=== PATIENT | female | born 1975 | race Caucasian/White ===

== ENCOUNTER 2017-03-21 16:55 | Emergency (ER) | payer OTHER ==
[2017-03-21 16:55] VITALS: BMI 25.6
--- NOTE | 2017-03-21 17:14 | C.PDOC ---
History Of Present Illness 41 y/o female with PMHx of NIDDM, HTN, Hyperlipidemia, hx of Charcot foot BIBA for evaluation of open wound noted on left big toe that patient contributes to long cast she wear for months after had procedure on left foot on 02/17/17 at [facility]. Pt admits, ambulate w/assistance of crutches. Otherwise, denies fever, chills, left leg pain swelling or wound drainage. At the time of evaluation, pt appears comfortable, not in any apparent distress. Time Seen by Provider: 03/21/17 17:00 Chief Complaint (Nursing): Lower Extremity Problem/Injury History Per: Patient History/Exam Limitations: no limitations Onset/Duration Of Symptoms: Days Past Medical History Reviewed: Historical Data, Nursing Documentation, Vital Signs Vital Signs: Last Vital Signs Temp 97.6 F 03/21/17 16:57 Pulse 84 03/21/17 16:57 Resp 20 03/21/17 16:57 BP 113/74 03/21/17 16:57 Pulse Ox 100 03/21/17 18:50 - Medical History PMH: Diabetes, HTN, Hypercholesterolemia - [facility] Procedures IMMOBILIZATION OF LEFT FOOT USING CAST (02/12/17) INTRODUCTION OF SERUM/TOX/VACCINE INTO MUSCLE, PERC APPROACH (02/12/17) Family History: States: No Known Family Hx - Social History Hx Alcohol Use: No Hx Substance Use: No Review Of Systems Except As Marked, All Systems Reviewed And Found Negative. Constitutional: Negative for: Fever, Chills Musculoskeletal: Positive for: Other ((+) Left big toe open wound). Negative for: Leg Pain Physical Exam - Physical Exam Appears: Well, Non-toxic, No Acute Distress Skin: Normal Color, Warm Head: Normacephalic Eye(s): bilateral: PERRL Extremity: Normal ROM (RLE, no neurovascular deficits), Capillary Refill (less than 2sec to left foot), No Deformity, Other (Left leg long cast small open wound noted dorsal aspect 1st proximal phalanx 2 cm diameter, appears clean, dry , intact. No erythema.) Neurological/Psych: Oriented x3, Normal Speech, Normal Motor, Normal Sensation, Normal Reflexes ED Course And Treatment O2 Sat by Pulse Oximetry: 100 (RA) Pulse Ox Interpretation: Normal Progress Note: Podiatry resident was called, evaluated patient in ED. Old Case was removed and replaced by fibergalss posterior leg splint by podiatry resident. As per , pt is stable for discharge now and outpt f/u with Podiatry Clinic as scheduled on 03/26/17. During the ED evaluation, accucheck performed, pt was found hypoglycemic. After PO challenge given, FSBS re-check 96. Pt appears afebrile, hemodynamicaly stable. Non-toxic. PulsEOx 100% RA. ENT: no acute findings. Lungs: CTA B/L, BS equal B/L. ABd: benign, (-) guarding, (-) rebound. LLE: posterior cast applied, wound over left big toe cleaned, covered by xeroform, no evidencce of cellulitis, no neurovascular deficits. Pt advised to F/U with Podiatry as scheduled and PMD for further eval of DM. Pt understand, stable for discharge and outpt f/u now. Disposition Counseled Patient/Family Regarding: Diagnosis, Need For Followup - Disposition Referrals: Podiatry Clinic [Outside] Disposition: HOME/ ROUTINE Disposition Time: 18:46 Condition: STABLE Additional Instructions: FOLLOW UP WITH [facility]ER[employer] DESIGN ENGINEER SCHEDULED ON 03/26/17 FOR RE-EVALUATION. RETURN TO ED IF ANY WORSENING OR NEW CHANGES. Instructions: Cast Care (ED), Non-diabetic Hypoglycemia (ED), Chronic Wound Care (ED) Forms: [employer] (Guinean) - Clinical Impression Clinical Impression: Encounter for replacement of cast, Encounter for evaluation of wound, Hypoglycemia - PA / ELECTROMATIC TYPIST / Resident Statement MD/DO has reviewed & agrees with the documentation as recorded. - Scribe Statement The provider has reviewed the documentation as recorded by the Scribe Juliette Curran All medical record entries made by the Jocelynibbradley were at my direction and personally dictated by me. I have reviewed the chart and agree that the record accurately reflects my personal performance of the history, physical exam, medical decision making, and the department course for this patient. I have also personally directed, reviewed, and agree with the discharge instructions and disposition.
[2017-03-21] MEDS ORDERED: Bacitracin Ointment 30 GM TUBE TOP STA (17:16)
[2017-03-21] MEDS ORDERED: Bacitracin 500 Units/gm Oint Foilpak UD ONE ×2 (17:18→17:19)
--- NOTE | 2017-03-21 18:46 | CP.PCM.CON ---
History of Present Illness - History of Present Illness History of Present Illness: 41 y/o female with PMHx of DM, HTN, Hyperlipidemia, left Charcot deformity consulted in the ED fast track for left foot ulceration. Patient reports that today when she took of her socks, she noticed the ulceration on the left foot. Her sister told her to go to the ED right away. She reports no pain, rating the pain 0/10 on VAS score. She denies calf pain. She did not notice any odor or drainage from the socks. She states that she has been keeping the cast dry and clean. She reports the cast was placed on last week at [facility] podiatry clinic. She states that she will f/u in clinic on Wednesday for her Charcot deformity and cast change. Patient denies of any recent F/N/V/C/SOB/CP today. Patient denies of any other pedal complains at this time. PMHx: DM, HTN, Hyperlipidemia, Charcot PSHx: denies Allergies: N.K.D.A SHx: Denies of any smoking, EtOH, or illicit drug use FH: noncontributory Past Patient History - Tetanus Immunizations Tetanus Immunization: Unknown - Past Medical History & Family History Past Medical History?: Yes - Past Social History Smoking Status: Never Smoked - CARDIAC Hx Hypercholesterolemia: Yes Hx Hypertension: Yes - PULMONARY Hx Respiratory Disorders: No - NEUROLOGICAL Hx Neurological Disorder: No - HEENT Hx HEENT Problems: No - RENAL Hx Chronic Kidney Disease: No - ENDOCRINE/METABOLIC Hx Endocrine Disorders: Yes Hx Diabetes Mellitus Type 2: Yes - HEMATOLOGICAL/ONCOLOGICAL Hx Blood Disorders: No - INTEGUMENTARY Hx Dermatological Problems: No - MUSCULOSKELETAL/RHEUMATOLOGICAL Hx Musculoskeletal Disorders: No Hx Falls: No - GASTROINTESTINAL Hx Gastrointestinal Disorders: No - GENITOURINARY/GYNECOLOGICAL Hx Genitourinary Disorders: No - PSYCHIATRIC Hx Substance Use: No - SURGICAL HISTORY Hx Surgeries: Yes Other/Comment: Boil surgically removed on upper left back as per patient statement 10 years ago - ANESTHESIA Hx Anesthesia: Yes Hx Anesthesia Reactions: No Meds Allergies/Adverse Reactions: Allergies Allergy/AdvReac Type Severity Reaction Status Date / Time No Known Allergies Allergy Verified 03/21/17 17:00 Physical Exam - Constitutional Appears: Well, Non-toxic, No Acute Distress - Extremities Exam Additional comments: Left Lower extremity exam: VASC: DP/PT pulses are palpable 2/4, Cap refill time: < 3 sec to all digits, Temp gradient: warm to cool from proximal to distal, no edema noted to the L LE DERM: ulceration noted to the dorsum of the 1st MPJ measuring approximately 2.5 cm x 2 cm x . 2cm, wound base is mainly fibrotic with granular tissue noted in the peripheral. Periwound is erythematus with no streaking noted, no purulence, no active drainage, no tunneling, no undermining, no probe to bone, no clinical suspicion of active infection NEURO: Protective sensation grossly diminished ORTHO: plantar medial arch is collapsed, very minimal ankle DF, PF, and inversion on active ROM, clicking appreciated on ROM of the midtarsal longitudinal axis, as well as during ankle dorsiflexion, MMT: 2/5 on dorsiflexion, plantarflexion, inversion 4/5 on eversion, mild tenderness during ROM at the ankle joint as well as the midtarsal joint, no pain on palpation of the medial ankle or midfoot, no calf pain - Neurological Exam Neurological exam: Alert, Oriented x3 - Psychiatric Exam Psychiatric exam: Normal Affect, Normal Mood Results - Vital Signs Recent Vital Signs: Last Vital Signs Temp 97.6 F 03/21/17 16:57 Pulse 84 03/21/17 16:57 Resp 20 03/21/17 16:57 BP 113/74 03/21/17 16:57 Pulse Ox 100 03/21/17 17:17 - Labs Labs: Laboratory Results - last 24 hr 03/21/17 17:41 POC Glucose (mg/dL) 53 L Assessment & Plan - Assessment and Plan (Free Text) Assessment: 41 y/o female with PMHx of DM, HTN, Hyperlipidemia, left Charcot deformity for left dorsum 1st MPJ ulceration secondary to pressure from cast- no clinical signs of infection Plan: Patient examined and evaluated Discussed the plan in detail with attending Dr. Indira Brewer and chart reviewed Cast removed in the ED, ulceration cleansed with saline, dressed with xeroform, dsd, and kerlix. Posterior splint applied for the Left Charcot deformity. Will f/u in clinic on Wednesday of Charcot deformity and ulceration Patient will continue to be NWB in crutches. Educated on signs of infection. Advised to go to ED if present. Thank you for the consult.
[2017-03-21 19:18] VITALS: BP 114/68; PULSE 75; RESP 18; TEMP 98.2
[2017-03-21 19:19] VITALS: O2SAT 100
== END 2017-03-21 19:19 | disposition home or self-care (01) ==
LOC: C.ER 16:55
DX: E11.621 Type 2 diabetes mellitus with foot ulcer (principal); L97.529 Non-pressure chronic ulcer of other part of left foot with unspecified severity; E11.649 Type 2 diabetes mellitus with hypoglycemia without coma

== ENCOUNTER 2017-04-30 18:51 | Inpatient (IN) | payer OTHER ==
[2017-04-30] MEDS ORDERED: Phenylephrine 10 mg/ml Inj ONE (19:09)
[2017-04-30] MEDS ORDERED: Midazolam 2 MG/2 ML VIAL ONE (19:10)
[2017-04-30] MEDS ORDERED: Eptifibatide 0.75 mg/ml 150 MG/200 ML BOTTLE IV ONE (19:11)
[2017-04-30] MEDS ORDERED: Iodixanol 320 MG/ML 200 ML BOTTLE IV ONE (19:11)
[2017-04-30] MEDS ORDERED: Eptifibatide 20 mg/10mL Inj IVP ONE ×2 (19:11→21:14)
[2017-04-30] MEDS ORDERED: Metoprolol 1 mg/ml Inj IVP ONE (21:10)
[2017-04-30] MEDS ORDERED: Norepinephrine 8 MG in Dextrose 5% In Water 500 ML IV PRN (22:31)
[2017-04-30 22:54] LABS: BASO % 0.2 % (0.0-2.0); HEMATOCRIT 40.6 % (34.0-47.0); LYMPH # 1.2 K/uL (1.0-4.3); LYMPH % 4.4 % (20.0-40.0); MEAN CELL VOLUME 87.9 fL (81.0-99.0); MEAN CORPUSCULAR HEMOGLOBIN 28.4 pg (27.0-31.0); MEAN CORPUSCULAR HGB CONC 32.3 g/dL (33.0-37.0); MEAN PLATELET VOLUME 8.8 fL (7.2-11.7); MONO # 1.8 K/uL (0.0-0.8); MONO % 6.3 % (0.0-10.0); PLATELET COUNT 177 K/uL (130-400); WHITE BLOOD COUNT 28.6 K/uL (4.8-10.8)
[2017-04-30] MEDS ORDERED: Sodium Chloride 0.9% 1,000 ML IV SCH (23:00)
[2017-04-30 23:10] LABS: RBC URINE 12 /hpf (0-3); URINE BACTERIA RARE (<OCC); URINE BILIRUBIN NEGATIVE (NEGATIVE); URINE BLOOD 2+ (NEGATIVE); URINE COLOR Straw (YELLOW); URINE GLUCOSE (UA) 3+ mg/dL (Normal); URINE KETONE NEGATIVE (NEGATIVE); URINE LEUKOCYTE ESTERASE NEG Leu/uL (Negative); URINE PROTEIN 2+ mg/dL (NEGATIVE); URINE UROBILINOGEN NORMAL mg/dL (0.2-1.0); WBC URINE 1 /hpf (0-5)
[2017-04-30 23:20] LABS: INR 1.2
[2017-04-30 23:22] LABS: ALB/GLOB RATIO 1.1 (1.0-2.1); BILIRUBIN,TOTAL 1.6 mg/dL (0.2-1.3); CALCIUM 6.2 mg/dl (8.6-10.4); MAGNESIUM 1.4 mg/dL (1.6-2.3); PHOSPHOROUS 4.8 mg/dL (2.5-4.5); POTASSIUM 5.3 mmol/L (3.6-5.2); TOTAL PROTEIN 4.9 g/dL (6.3-8.3)
[2017-04-30 23:54] LABS: METAMYELOCYTE 1 % (0-0); MYELOCYTE 2 % (0-0); NEUTROPHIL 86 % (50-75); TOTAL CELLS COUNTED 100
[2017-05-01] MEDS: Midazolam 2 MG/2 ML VIAL IVP PRN ×4 (00:45→14:45)
[2017-05-01 00:54] LABS: ALB/GLOB RATIO 0.8 (1.0-2.1); BILIRUBIN,TOTAL 1.9 mg/dL (0.2-1.3); CALCIUM 6.7 mg/dl (8.6-10.4); POTASSIUM 5.5 mmol/L (3.6-5.2); TOTAL PROTEIN 6.2 g/dL (6.3-8.3)
--- NOTE | 2017-05-01 01:05 | CP.PCM.HP ---
<Veronica Cline - Last Filed: 05/01/17 01:03> History of Present Illness - History of Present Illness History of Present Illness: HPI: Patient is a 41 year old female with a past medical history of HTN, hyperlipdemia, and DM, who is transferred from [place] to [facility] as code heart for cardiac catheterization. Patient was s/p left charcot joint reconstruction on 04/30/17. In the OR, the patient's tourniquet on lower extremmity was removed, then patient became hypotensive and had blood loss of approximately 750cc. Code blue was called at approximately 15:50. One shock was given, 3L of NS were given, 4 units of PRBC were given (hgb 5.3). ROSC was achieved approximately 30 minutes later. EKG showed acute STEMI. Patient was transferred to [facility] for cardiac catheterization with Dr. Morales. Patient has balloon pump in place and transferred to the ICU. Patient is alert and follows commands; Patient intubated and therefore unable to obtain ROS. *History and PMHx obtained from EMR. PMD: [facility] PMHx: HTN, HLD, DM, Charcot joint of left LE Surg Hx: reconstruction of left charcot joint; otherwise, unknown FamHx: unknown SocHx: unknown Allergies: NKDA (as per EMR) Medications: See EMR Present on Admission - Present on Admission Any Indicators Present on Admission: No Review of Systems - Review of Systems Systems not reviewed;Unavailable: Intubated Past Patient History - Tetanus Immunizations Tetanus Immunization: Unknown - Past Medical History & Family History Past Medical History?: Yes - Past Social History Smoking Status: Never Smoked Drugs: Other (unknown) Home Situation {Lives}: With Family - CARDIAC Hx Cardiac Disorders: Yes Hx Hypercholesterolemia: Yes Hx Hypertension: Yes - PULMONARY Hx Respiratory Disorders: No - NEUROLOGICAL Hx Neurological Disorder: No - HEENT Hx HEENT Problems: No - RENAL Other/Comment: RECENT KIDNE INFECTION - ENDOCRINE/METABOLIC Hx Endocrine Disorders: Yes Hx Diabetes Mellitus Type 2: Yes - HEMATOLOGICAL/ONCOLOGICAL Hx Blood Disorders: No - INTEGUMENTARY Hx Dermatological Problems: No - MUSCULOSKELETAL/RHEUMATOLOGICAL Hx Musculoskeletal Disorders: No Hx Falls: No Other/Comment: charcot deformity - GASTROINTESTINAL Hx Gastrointestinal Disorders: No - GENITOURINARY/GYNECOLOGICAL Hx Genitourinary Disorders: No Hx Urinary Tract Infection: Yes - PSYCHIATRIC Hx Psychophysiologic Disorder: No Hx Substance Use: No - SURGICAL HISTORY Hx Surgeries: Yes Hx Cardiac Catheterization: Yes Hx Coronary Stent: Yes Other/Comment: Left foot surgery 02/17/17 - ANESTHESIA Hx Anesthesia: Yes Hx Anesthesia Reactions: No Hx Malignant Hyperthermia: No Meds Allergies/Adverse Reactions: Allergies Allergy/AdvReac Type Severity Reaction Status Date / Time No Known Allergies Allergy Verified 03/21/17 17:00 Physical Exam - Head Exam Head Exam: ATRAUMATIC, NORMAL INSPECTION - Eye Exam Eye Exam: EOMI, Normal appearance. absent: Scleral icterus Pupil Exam: Mydriatic - ENT Exam ENT Exam: Mucous Membranes Dry - Respiratory Exam Respiratory Exam: absent: Rales, Rhonchi, Wheezes Additional comments: Intubated - Cardiovascular Exam Cardiovascular Exam: Tachycardia, +S1, +S2 Additional comments: s/p cardiac cath; Balloon pump present - GI/Abdominal Exam GI & Abdominal Exam: Normal Bowel Sounds, Soft. absent: Distended, Firm, Tenderness - Extremities Exam Additional comments: s/p left charcot joint reconstructive surgery (on 04/30) - Neurological Exam Neurological exam: Alert Additional comments: follows commands - Psychiatric Exam Additional comments: sedated - Skin Skin Exam: Dry, Intact, Warm Additional comments: s/p left charcot joint reconstructive surgery; dressing-clean, dry, intact Results - Vital Signs Recent Vital Signs: Last Vital Signs Temp Pulse 104 H 04/30/17 22:45 Resp 18 04/30/17 22:45 BP 89/56 L 04/30/17 22:45 Pulse Ox 100 04/30/17 22:45 - Labs Result Diagrams: 04/30/17 22:43 05/01/17 00:26 Labs: Laboratory Results - last 24 hr 04/30/17 04/30/17 04/30/17 22:30 22:43 22:43 WBC 28.6 H RBC 4.62 Hgb 13.1 Hct 40.6 MCV 87.9 MCH 28.4 MCHC 32.3 L RDW 15.0 H Plt Count 177 MPV 8.8 Neut % (Auto) 89.1 H Lymph % (Auto) 4.4 L Lamb % (Auto) 6.3 Eos % (Auto) 0.0 Baso % (Auto) 0.2 Neut # 25.5 H Lymph # 1.2 Lamb # 1.8 H Eos # 0.0 Baso # 0.0 Neutrophils % (Manual) 86 H Band Neutrophils % 5 H Lymphocytes % (Manual) 2 L Monocytes % (Manual) 4 Metamyelocytes % 1 H Myelocytes % 2 H Platelet Estimate Normal PT INR APTT Sodium 138 Potassium 5.3 H Chloride 113 H Carbon Dioxide 11 L* Anion Gap 18 BUN 26 H Creatinine 1.7 H Est GFR ( Amer) 40 Est GFR (Non-Af Amer) 33 POC Glucose (mg/dL) Random Glucose 440 H* Lactic Acid Calcium 6.2 L Phosphorus 4.8 H Magnesium 1.4 L Total Bilirubin 1.6 H AST 1215 H ALT 896 H Alkaline Phosphatase 57 Total Creatine Kinase 2498 H CK-MB (Mass) 103 H Troponin I 144.0000 H* Total Protein 4.9 L Albumin 2.5 L Globulin 2.4 Albumin/Globulin Ratio 1.1 Urine Color Urine Clarity Urine pH Ur Specific [place] Urine Protein Urine Glucose (UA) Urine Ketones Urine Blood Urine Nitrate Urine Bilirubin Urine Urobilinogen Ur Leukocyte Esterase Urine WBC (Auto) Urine RBC (Auto) Urine Bacteria Urine HCG, Qual Blood Type AB POSITIVE Antibody Screen Negative 04/30/17 04/30/17 04/30/17 22:43 23:16 23:46 WBC RBC Hgb Hct MCV MCH MCHC RDW Plt Count MPV Neut % (Auto) Lymph % (Auto) Lamb % (Auto) Eos % (Auto) Baso % (Auto) Neut # Lymph # Lamb # Eos # Baso # Neutrophils % (Manual) Band Neutrophils % Lymphocytes % (Manual) Monocytes % (Manual) Metamyelocytes % Myelocytes % Platelet Estimate PT 13.5 H INR 1.2 APTT 262 H* Sodium Potassium Chloride Carbon Dioxide Anion Gap BUN Creatinine Est GFR ( Amer) Est GFR (Non-Af Amer) POC Glucose (mg/dL) 391 H Random Glucose Lactic Acid Calcium Phosphorus Magnesium Total Bilirubin AST ALT Alkaline Phosphatase Total Creatine Kinase CK-MB (Mass) Troponin I Total Protein Albumin Globulin Albumin/Globulin Ratio Urine Color Straw Urine Clarity Clear Urine pH 6.0 Ur Specific [place] 1.012 Urine Protein 2+ H Urine Glucose (UA) 3+ H Urine Ketones Negative Urine Blood 2+ H Urine Nitrate Negative Urine Bilirubin Negative Urine Urobilinogen Normal Ur Leukocyte Esterase Neg Urine WBC (Auto) 1 Urine RBC (Auto) 12 H Urine Bacteria Rare Urine HCG, Qual Negative Blood Type Antibody Screen 05/01/17 05/01/17 05/01/17 00:26 00:26 00:26 WBC RBC Hgb Hct MCV MCH MCHC RDW Plt Count MPV Neut % (Auto) Lymph % (Auto) Lamb % (Auto) Eos % (Auto) Baso % (Auto) Neut # Lymph # Lamb # Eos # Baso # Neutrophils % (Manual) Band Neutrophils % Lymphocytes % (Manual) Monocytes % (Manual) Metamyelocytes % Myelocytes % Platelet Estimate PT INR APTT 71 H D Sodium 138 Potassium 5.5 H Chloride 115 H Carbon Dioxide 14 L Anion Gap 15 BUN 26 H Creatinine 1.7 H Est GFR ( Amer) 40 Est GFR (Non-Af Amer) 33 POC Glucose (mg/dL) Random Glucose 454 H* Lactic Acid 4.7 H* Calcium 6.7 L Phosphorus Magnesium Total Bilirubin 1.9 H AST ALT 904 H Alkaline Phosphatase 63 Total Creatine Kinase CK-MB (Mass) Troponin I Total Protein 6.2 L Albumin 2.8 L Globulin 3.4 Albumin/Globulin Ratio 0.8 L Urine Color Urine Clarity Urine pH Ur Specific [place] Urine Protein Urine Glucose (UA) Urine Ketones Urine Blood Urine Nitrate Urine Bilirubin Urine Urobilinogen Ur Leukocyte Esterase Urine WBC (Auto) Urine RBC (Auto) Urine Bacteria Urine HCG, Qual Blood Type Antibody Screen Assessment & Plan (1) Acute ST elevation myocardial infarction (STEMI) Assessment and Plan: s/p Code Blue, s/p Code Heart; transferred from [place]; s/p cardiac cath and balloon pump with Dr. Morales * EKG: acute stemi; sinus tachycardiac; rbbb; pending official read * Troponin: 144; f/u troponin x2 * Total CK: 2498, CKMB 103 * Echo: f/u report * CXR: f/u report * A1c: f/u results * Follow up morning labs * Continue ASA 325mg, Plavix 75mg, Crestor 20mg * Continue management as per ICU team Status: Acute (2) DM2 (diabetes mellitus, type 2) Assessment and Plan: Patient has history of DM. As per EMR, patient received 10units of insulin s/p code blue for glucose of 512. Will consider starting insulin after reviewing morning labs. Continue to monitor blood glucose, accuchecks. Status: Acute (3) HTN (hypertension) Assessment and Plan: Patient has a history of HTN. Patient currently hypotensive, on pressors; Hold antihypertensive medications. * Levophed 8mg * Continue management as per ICU team. Status: Acute (4) Renal insufficiency Assessment and Plan: Continue to monitor renal function. BUN 26, Cr 1.7, GFR 40 Status: Acute (5) Charcot's joint of foot Assessment and Plan: s/p left charcot joint reconstruction surgery on 04/30/17 Status: Acute (6) HLD (hyperlipidemia) Assessment and Plan: Continue Crestor 20mg PO HS Lipid panel 03/19/17: * TG 190 * Cholesterol 284 * LDL 175 * HDL 48 Status: Acute (7) Prophylactic measure Assessment and Plan: Heparin 5000 sc Q12 Protonix 40mg Accuchecks Status: Acute <Kory Savage - Last Filed: 05/01/17 06:26> Results - Vital Signs Recent Vital Signs: Last Vital Signs Temp 99.4 F 05/01/17 04:00 Pulse 105 H 05/01/17 06:02 Resp 17 05/01/17 06:02 BP 148/85 05/01/17 06:02 Pulse Ox 100 05/01/17 06:02 - Labs Result Diagrams: 04/30/17 22:43 05/01/17 00:26 Labs: Laboratory Results - last 24 hr 04/30/17 04/30/17 04/30/17 22:30 22:43 22:43 WBC 28.6 H RBC 4.62 Hgb 13.1 Hct 40.6 MCV 87.9 MCH 28.4 MCHC 32.3 L RDW 15.0 H Plt Count 177 MPV 8.8 Neut % (Auto) 89.1 H Lymph % (Auto) 4.4 L Lamb % (Auto) 6.3 Eos % (Auto) 0.0 Baso % (Auto) 0.2 Neut # 25.5 H Lymph # 1.2 Lamb # 1.8 H Eos # 0.0 Baso # 0.0 Neutrophils % (Manual) 86 H Band Neutrophils % 5 H Lymphocytes % (Manual) 2 L Monocytes % (Manual) 4 Metamyelocytes % 1 H Myelocytes % 2 H Platelet Estimate Normal PT INR APTT Puncture Site pCO2 pO2 HCO3 ABG pH ABG Total CO2 ABG O2 Saturation ABG Base Excess ABG Hemoglobin ABG Carboxyhemoglobin POC ABG HHb (Measured) ABG Methemoglobin Hernandez Test A-a O2 Difference Respiratory Index Hgb O2 Saturation Vent Mode Mechanical Rate FiO2 Tidal Volume PEEP Sodium 138 Potassium 5.3 H Chloride 113 H Carbon Dioxide 11 L* Anion Gap 18 BUN 26 H Creatinine 1.7 H Est GFR ( Amer) 40 Est GFR (Non-Af Amer) 33 POC Glucose (mg/dL) Random Glucose 440 H* Lactic Acid Calcium 6.2 L Phosphorus 4.8 H Magnesium 1.4 L Total Bilirubin 1.6 H AST 1215 H ALT 896 H Alkaline Phosphatase 57 Total Creatine Kinase 2498 H CK-MB (Mass) 103 H Troponin I 144.0000 H* Total Protein 4.9 L Albumin 2.5 L Globulin 2.4 Albumin/Globulin Ratio 1.1 Urine Color Urine Clarity Urine pH Ur Specific [place] Urine Protein Urine Glucose (UA) Urine Ketones Urine Blood Urine Nitrate Urine Bilirubin Urine Urobilinogen Ur Leukocyte Esterase Urine WBC (Auto) Urine RBC (Auto) Urine Bacteria Urine HCG, Qual Blood Type AB POSITIVE Antibody Screen Negative 04/30/17 04/30/17 04/30/17 22:43 23:16 23:46 WBC RBC Hgb Hct MCV MCH MCHC RDW Plt Count MPV Neut % (Auto) Lymph % (Auto) Lamb % (Auto) Eos % (Auto) Baso % (Auto) Neut # Lymph # Lamb # Eos # Baso # Neutrophils % (Manual) Band Neutrophils % Lymphocytes % (Manual) Monocytes % (Manual) Metamyelocytes % Myelocytes % Platelet Estimate PT 13.5 H INR 1.2 APTT 262 H* Puncture Site pCO2 pO2 HCO3 ABG pH ABG Total CO2 ABG O2 Saturation ABG Base Excess ABG Hemoglobin ABG Carboxyhemoglobin POC ABG HHb (Measured) ABG Methemoglobin Hernandez Test A-a O2 Difference Respiratory Index Hgb O2 Saturation Vent Mode Mechanical Rate FiO2 Tidal Volume PEEP Sodium Potassium Chloride Carbon Dioxide Anion Gap BUN Creatinine Est GFR ( Amer) Est GFR (Non-Af Amer) POC Glucose (mg/dL) 391 H Random Glucose Lactic Acid Calcium Phosphorus Magnesium Total Bilirubin AST ALT Alkaline Phosphatase Total Creatine Kinase CK-MB (Mass) Troponin I Total Protein Albumin Globulin Albumin/Globulin Ratio Urine Color Straw Urine Clarity Clear Urine pH 6.0 Ur Specific [place] 1.012 Urine Protein 2+ H Urine Glucose (UA) 3+ H Urine Ketones Negative Urine Blood 2+ H Urine Nitrate Negative Urine Bilirubin Negative Urine Urobilinogen Normal Ur Leukocyte Esterase Neg Urine WBC (Auto) 1 Urine RBC (Auto) 12 H Urine Bacteria Rare Urine HCG, Qual Negative Blood Type Antibody Screen 05/01/17 05/01/17 05/01/17 00:26 00:26 00:26 WBC RBC Hgb Hct MCV MCH MCHC RDW Plt Count MPV Neut % (Auto) Lymph % (Auto) Lamb % (Auto) Eos % (Auto) Baso % (Auto) Neut # Lymph # Lamb # Eos # Baso # Neutrophils % (Manual) Band Neutrophils % Lymphocytes % (Manual) Monocytes % (Manual) Metamyelocytes % Myelocytes % Platelet Estimate PT INR APTT 71 H D Puncture Site pCO2 pO2 HCO3 ABG pH ABG Total CO2 ABG O2 Saturation ABG Base Excess ABG Hemoglobin ABG Carboxyhemoglobin POC ABG HHb (Measured) ABG Methemoglobin Hernandez Test A-a O2 Difference Respiratory Index Hgb O2 Saturation Vent Mode Mechanical Rate FiO2 Tidal Volume PEEP Sodium 138 Potassium 5.5 H Chloride 115 H Carbon Dioxide 14 L Anion Gap 15 BUN 26 H Creatinine 1.7 H Est GFR ( Amer) 40 Est GFR (Non-Af Amer) 33 POC Glucose (mg/dL) Random Glucose 454 H* Lactic Acid 4.7 H* Calcium 6.7 L Phosphorus Magnesium Total Bilirubin 1.9 H AST 1275 H ALT 904 H Alkaline Phosphatase 63 Total Creatine Kinase CK-MB (Mass) Troponin I Total Protein 6.2 L Albumin 2.8 L Globulin 3.4 Albumin/Globulin Ratio 0.8 L Urine Color Urine Clarity Urine pH Ur Specific [place] Urine Protein Urine Glucose (UA) Urine Ketones Urine Blood Urine Nitrate Urine Bilirubin Urine Urobilinogen Ur Leukocyte Esterase Urine WBC (Auto) Urine RBC (Auto) Urine Bacteria Urine HCG, Qual Blood Type Antibody Screen 05/01/17 05/01/17 05/01/17 00:59 02:58 04:06 WBC RBC Hgb Hct MCV MCH MCHC RDW Plt Count MPV Neut % (Auto) Lymph % (Auto) Lamb % (Auto) Eos % (Auto) Baso % (Auto) Neut # Lymph # Lamb # Eos # Baso # Neutrophils % (Manual) Band Neutrophils % Lymphocytes % (Manual) Monocytes % (Manual) Metamyelocytes % Myelocytes % Platelet Estimate PT INR APTT Puncture Site A-line pCO2 27 L pO2 182 H HCO3 13.8 L ABG pH 7.24 L ABG Total CO2 12.4 L ABG O2 Saturation 99.4 H ABG Base Excess -14.2 L ABG Hemoglobin 12.8 ABG Carboxyhemoglobin 1.9 H POC ABG HHb (Measured) 0.6 ABG Methemoglobin 1.7 Hernandez Test Na A-a O2 Difference 69.0 Respiratory Index 0.4 Hgb O2 Saturation 95.9 Vent Mode Prvc Mechanical Rate 14 FiO2 40.0 Tidal Volume 450 PEEP 5 Sodium Potassium Chloride Carbon Dioxide Anion Gap BUN Creatinine Est GFR ( Amer) Est GFR (Non-Af Amer) POC Glucose (mg/dL) 396 H 346 H Random Glucose Lactic Acid Calcium Phosphorus Magnesium Total Bilirubin AST ALT Alkaline Phosphatase Total Creatine Kinase CK-MB (Mass) Troponin I Total Protein Albumin Globulin Albumin/Globulin Ratio Urine Color Urine Clarity Urine pH Ur Specific [place] Urine Protein Urine Glucose (UA) Urine Ketones Urine Blood Urine Nitrate Urine Bilirubin Urine Urobilinogen Ur Leukocyte Esterase Urine WBC (Auto) Urine RBC (Auto) Urine Bacteria Urine HCG, Qual Blood Type Antibody Screen 05/01/17 05/01/17 05/01/17 05:07 05:27 06:03 WBC RBC Hgb Hct MCV MCH MCHC RDW Plt Count MPV Neut % (Auto) Lymph % (Auto) Lamb % (Auto) Eos % (Auto) Baso % (Auto) Neut # Lymph # Lamb # Eos # Baso # Neutrophils % (Manual) Band Neutrophils % Lymphocytes % (Manual) Monocytes % (Manual) Metamyelocytes % Myelocytes % Platelet Estimate PT INR APTT Puncture Site A-line pCO2 24 L pO2 184 H HCO3 15.9 L ABG pH 7.33 L ABG Total CO2 13.4 L ABG O2 Saturation 99.4 H ABG Base Excess -11.6 L ABG Hemoglobin 11.6 L ABG Carboxyhemoglobin 1.6 H POC ABG HHb (Measured) 0.6 ABG Methemoglobin 1.8 Hernandez Test Na A-a O2 Difference 71.0 Respiratory Index 0.4 Hgb O2 Saturation 96.0 Vent Mode Prvc Mechanical Rate 14 FiO2 40.0 Tidal Volume 450 PEEP 5 Sodium Potassium Chloride Carbon Dioxide Anion Gap BUN Creatinine Est GFR ( Amer) Est GFR (Non-Af Amer) POC Glucose (mg/dL) 301 H 298 H Random Glucose Lactic Acid Calcium Phosphorus Magnesium Total Bilirubin AST ALT Alkaline Phosphatase Total Creatine Kinase CK-MB (Mass) Troponin I Total Protein Albumin Globulin Albumin/Globulin Ratio Urine Color Urine Clarity Urine pH Ur Specific [place] Urine Protein Urine Glucose (UA) Urine Ketones Urine Blood Urine Nitrate Urine Bilirubin Urine Urobilinogen Ur Leukocyte Esterase Urine WBC (Auto) Urine RBC (Auto) Urine Bacteria Urine HCG, Qual Blood Type Antibody Screen Assessment & Plan - Date & Time Date: 05/01/17 (I have seen and examined the patient. I agree with the findings and plan as documented by Dr. Cline. Patient with STEMI. Transferred from [facility]. Taken to [facility] by Dr. Morales then admitted to ICU for further management. Aspirin , Statin, and Plavix. Further management as per ICU. Also with history of diabetes. NISS and Accuchecks. Adjust as necessary. Continue to monitor renal insufficiency. IVF. Adjust as necessary. Monitor for acute changes.) Time: 06:24 Attending/Attestation - Attestation I have personally seen and examined this patient.: Yes I have fully participated in the care of the patient.: Yes I have reviewed all pertinent clinical information: Yes
[2017-05-01 01:26] LABS: ABG MECHANICAL RATE 14; ARTERIAL BLOOD GAS MODE PRVC; ARTERIAL BLOOD HGB O2 SAT 95.9 % (95.0-98.0); ATERIAL BLOOD GAS PEEP 5; CARBOXYHEMOGLOBIN 1.9 % (0.5-1.5); DRAW SITE A-LINE; HHB 0.6 % (0.0-5.0); METHEMOGLOBIN 1.7 % (0.0-3.0)
[2017-05-01] MEDS ORDERED: (Novolin R) Insulin Human Regular 100 units/ml vial IV ONE ×2 (01:38→03:07)
[2017-05-01] MEDS ORDERED: Insulin Human Regular 100 UNIT in Sodium Chloride 0.9% 99 ML IV PRN (04:15)
[2017-05-01 05:38] VITALS: BMI 23.8
[2017-05-01 05:55] LABS: ABG MECHANICAL RATE 14; ARTERIAL BLOOD GAS MODE PRVC; ATERIAL BLOOD GAS PEEP 5; CARBOXYHEMOGLOBIN 1.6 % (0.5-1.5); DRAW SITE A-LINE; HHB 0.6 % (0.0-5.0); METHEMOGLOBIN 1.8 % (0.0-3.0)
[2017-05-01 06:47] LABS: BASO % 0.1 % (0.0-2.0); HEMATOCRIT 35.5 % (34.0-47.0); LYMPH # 1.6 K/uL (1.0-4.3); LYMPH % 8.4 % (20.0-40.0); MEAN CELL VOLUME 84.5 fL (81.0-99.0); MEAN CORPUSCULAR HEMOGLOBIN 28.5 pg (27.0-31.0); MEAN CORPUSCULAR HGB CONC 33.7 g/dL (33.0-37.0); MEAN PLATELET VOLUME 8.8 fL (7.2-11.7); MONO # 1.5 K/uL (0.0-0.8); MONO % 7.8 % (0.0-10.0); PLATELET COUNT 150 K/uL (130-400); RED CELL DISTRIBUTION WIDTH 14.8 % (11.5-14.5); WHITE BLOOD COUNT 18.8 K/uL (4.8-10.8)
--- NOTE | 2017-05-01 07:14 | CP.PCM.CON ---
History of Present Illness - History of Present Illness History of Present Illness: 41 F with h/o dm, cri, charcot joint disease in left foot, was in [facility] for foot reconstruction surg, patient had tourniquet for about 4 hrs when it was opened patient bleed from foot, then became hypotensive and coded in the OR, patient received 4 lit bolus ivf, 4 units PRBC, CPR lasted for about 30 min, patient was noticed to have inferior CYNTHIA in the EKG, elevated trop of 25 , noticed. Bed side echo also showed inferior hypokinesis. Patient was then transferred to [facility] As d/w the cath team, patient had some lowering of bp as soon as the left main was entered, due to some left main disease, balloon pump was used to assist heart, RCA compete occlusion noticed, BMS was passed, EF about 40%. TLC in right groin and right radial rodriguez was done in [place]. Patient was needing low dose levophed post cath. Patient had clear urine when catheter inserted in [facility] ICU. Patient was awake and moving all ext although intubated, but following commands. PMH as above Allergies NKDA Family History details not awaible Social history not available Meds reviewed form [place] record. Review of Systems - Review of Systems All systems: reviewed and no additional remarkable complaints except (HPI) Past Patient History - Tetanus Immunizations Tetanus Immunization: Unknown - Past Medical History & Family History Past Medical History?: Yes - Past Social History Smoking Status: Never Smoked Drugs: Other (unknown) Home Situation {Lives}: With Family - CARDIAC Hx Cardiac Disorders: Yes Hx Hypercholesterolemia: Yes Hx Hypertension: Yes - PULMONARY Hx Respiratory Disorders: No - NEUROLOGICAL Hx Neurological Disorder: No - HEENT Hx HEENT Problems: No - RENAL Other/Comment: RECENT KIDNE INFECTION - ENDOCRINE/METABOLIC Hx Endocrine Disorders: Yes Hx Diabetes Mellitus Type 2: Yes - HEMATOLOGICAL/ONCOLOGICAL Hx Blood Disorders: No - INTEGUMENTARY Hx Dermatological Problems: No - MUSCULOSKELETAL/RHEUMATOLOGICAL Hx Musculoskeletal Disorders: No Hx Falls: No Other/Comment: charcot deformity - GASTROINTESTINAL Hx Gastrointestinal Disorders: No - GENITOURINARY/GYNECOLOGICAL Hx Genitourinary Disorders: No Hx Urinary Tract Infection: Yes - PSYCHIATRIC Hx Psychophysiologic Disorder: No Hx Substance Use: No - SURGICAL HISTORY Hx Surgeries: Yes Hx Cardiac Catheterization: Yes Hx Coronary Stent: Yes Other/Comment: Left foot surgery 02/17/17 - ANESTHESIA Hx Anesthesia: Yes Hx Anesthesia Reactions: No Hx Malignant Hyperthermia: No Meds Allergies/Adverse Reactions: Allergies Allergy/AdvReac Type Severity Reaction Status Date / Time No Known Allergies Allergy Verified 03/21/17 17:00 - Medications Medications: Current Medications Aspirin (Aspirin) 325 mg PO DAILY [facility] Clopidogrel Bisulfate (Plavix) 75 mg PO DAILY [facility] Heparin Sodium (Porcine) (Heparin) 5,000 units SC Q12 [facility] Norepinephrine Bitartrate 8 mg (/ Dextrose) 258 mls @ 19.35 mls/hr IV .[id number] PRN; Protocol; 10 MCG/MIN PRN Reason: TITRATE PER MD ORDER Last Titration: 04/30/17 23:00 Dose: 2 mcg/min, 3.87 mls/hr Sodium Chloride (Sodium Chloride 0.9%) 1,000 mls @ 70 mls/hr IV .[id number] MATTHEW Last Admin: 04/30/17 23:00 Dose: 70 mls/hr Midazolam HCl (Versed Inj) 1 mg IVP Q1H PRN PRN Reason: Anxiety Morphine Sulfate (Morphine) 1 mg IV Q3H PRN PRN Reason: Pain, moderate (4-7) Last Admin: 05/01/17 00:40 Dose: 1 mg Pantoprazole Sodium (Protonix Ec Tab) 40 mg PO DAILY MATTHEW Rosuvastatin Calcium (Crestor) 20 mg PO HS [facility] Physical Exam - Additional Findings Additional findings: * HEENT AUGUST * Neck supple * Chest Clear * CVS tachycardia, transmitted noise from balloon pum * PA soft, nt bs present * Ext no edema in right leg, left leg in dressing, balloon pump in left groin, TLC in right groin, rodriguez radial * Skin normal turgor * [employer] patient awake, following commands, moving all ext Results - Vital Signs Recent Vital Signs: Last Vital Signs Temp Pulse 104 H 04/30/17 22:45 Resp 18 04/30/17 22:45 BP 89/56 L 04/30/17 22:45 Pulse Ox 100 04/30/17 22:45 - Labs Result Diagrams: 04/30/17 22:43 04/30/17 22:43 Labs: Laboratory Results - last 24 hr 04/30/17 04/30/17 04/30/17 22:30 22:43 22:43 WBC 28.6 H RBC 4.62 Hgb 13.1 Hct 40.6 MCV 87.9 MCH 28.4 MCHC 32.3 L RDW 15.0 H Plt Count 177 MPV 8.8 Neut % (Auto) 89.1 H Lymph % (Auto) 4.4 L [place] % (Auto) 6.3 Eos % (Auto) 0.0 Baso % (Auto) 0.2 Neut # 25.5 H Lymph # 1.2 [place] # 1.8 H Eos # 0.0 Baso # 0.0 Neutrophils % (Manual) 86 H Band Neutrophils % 5 H Lymphocytes % (Manual) 2 L Monocytes % (Manual) 4 Metamyelocytes % 1 H Myelocytes % 2 H Platelet Estimate Normal PT INR APTT Sodium 138 Potassium 5.3 H Chloride 113 H Carbon Dioxide 11 L* Anion Gap 18 BUN 26 H Creatinine 1.7 H Est GFR ( Amer) 40 Est GFR (Non-Af Amer) 33 POC Glucose (mg/dL) Random Glucose 440 H* Calcium 6.2 L Phosphorus 4.8 H Magnesium 1.4 L Total Bilirubin 1.6 H AST 1215 H ALT 896 H Alkaline Phosphatase 57 Total Creatine Kinase 2498 H CK-MB (Mass) 103 H Troponin I 144.0000 H* Total Protein 4.9 L Albumin 2.5 L Globulin 2.4 Albumin/Globulin Ratio 1.1 Urine Color Urine Clarity Urine pH Ur Specific [place] Urine Protein Urine Glucose (UA) Urine Ketones Urine Blood Urine Nitrate Urine Bilirubin Urine Urobilinogen Ur Leukocyte Esterase Urine WBC (Auto) Urine RBC (Auto) Urine Bacteria Urine HCG, Qual Blood Type AB POSITIVE Antibody Screen Negative 04/30/17 04/30/17 04/30/17 22:43 23:16 23:46 WBC RBC Hgb Hct MCV MCH MCHC RDW Plt Count MPV Neut % (Auto) Lymph % (Auto) [place] % (Auto) Eos % (Auto) Baso % (Auto) Neut # Lymph # [place] # Eos # Baso # Neutrophils % (Manual) Band Neutrophils % Lymphocytes % (Manual) Monocytes % (Manual) Metamyelocytes % Myelocytes % Platelet Estimate PT 13.5 H INR 1.2 APTT 262 H* Sodium Potassium Chloride Carbon Dioxide Anion Gap BUN Creatinine Est GFR ( Amer) Est GFR (Non-Af Amer) POC Glucose (mg/dL) 391 H Random Glucose Calcium Phosphorus Magnesium Total Bilirubin AST ALT Alkaline Phosphatase Total Creatine Kinase CK-MB (Mass) Troponin I Total Protein Albumin Globulin Albumin/Globulin Ratio Urine Color Straw Urine Clarity Clear Urine pH 6.0 Ur Specific [place] 1.012 Urine Protein 2+ H Urine Glucose (UA) 3+ H Urine Ketones Negative Urine Blood 2+ H Urine Nitrate Negative Urine Bilirubin Negative Urine Urobilinogen Normal Ur Leukocyte Esterase Neg Urine WBC (Auto) 1 Urine RBC (Auto) 12 H Urine Bacteria Rare Urine HCG, Qual Negative Blood Type Antibody Screen Assessment & Plan - Assessment and Plan (Free Text) Assessment: * S/p Cardiac arrest from inferior STEMI, as perioperative complication from blood loss, duration * Uncontrolled dm stress * Transaminitis vs elevated LFT's from rhabdo * Aortic baloon pump, R radial a line, Right femoral tlc, low dose levophed Plan: * ASA, Plavix * PPI * DVT prophylaxis * initial iv insulin, * See orders for detail.
[2017-05-01 07:17] LABS: ALB/GLOB RATIO 0.7 (1.0-2.1); BILIRUBIN,TOTAL 1.5 mg/dL (0.2-1.3); CALCIUM 6.7 mg/dl (8.6-10.4); MAGNESIUM 1.5 mg/dL (1.6-2.3); PHOSPHOROUS 3.6 mg/dL (2.5-4.5); POTASSIUM 4.4 mmol/L (3.6-5.2); TOTAL PROTEIN 5.4 g/dL (6.3-8.3)
--- NOTE | 2017-05-01 07:57 | RAD ---
PROCEDURE: CHEST RADIOGRAPH, 1 VIEW HISTORY: vent, balloon pump COMPARISON: None available. FINDINGS: LUNGS: No evidence of focal infiltrate or consolidation in the lungs. Patient status post intubation. The ET tube is seen at appropriate position PLEURA: No pneumothorax or pleural fluid seen. CARDIOVASCULAR: Normal. OSSEOUS STRUCTURES: No significant abnormalities. VISUALIZED UPPER ABDOMEN: NG tube seen extending to the stomach. OTHER FINDINGS: None. IMPRESSION: No evidence of active pulmonary disease. Appropriate position of the ETT and NG tube.
--- NOTE | 2017-05-01 09:09 | CP.PCM.PN ---
Subjective - Date & Time of Evaluation Date of Evaluation: 04/30/17 Time of Evaluation: 15:50 Objective - Vital Signs/Intake and Output Vital Signs (last 24 hours): Temp Pulse Resp BP Pulse Ox 97.5 F L 99 H 14 140/93 H 100 05/01/17 08:00 05/01/17 08:02 05/01/17 08:02 05/01/17 08:02 05/01/17 08:02 Intake and Output: 05/01/17 05/01/17 06:59 18:59 Intake Total 832.2 155 Output Total 1800 150 Balance -967.8 5 - Medications Medications: Current Medications Aspirin (Aspirin) 325 mg PO DAILY MATTHEW Clopidogrel Bisulfate (Plavix) 75 mg PO DAILY [facility] Heparin Sodium (Porcine) (Heparin) 5,000 units SC Q12 [facility] Norepinephrine Bitartrate 8 mg (/ Dextrose) 258 mls @ 19.35 mls/hr IV .[id number] PRN; Protocol; 10 MCG/MIN PRN Reason: TITRATE PER MD ORDER Last Titration: 05/01/17 02:30 Dose: 0 mcg/min, 0 mls/hr Sodium Chloride (Sodium Chloride 0.9%) 1,000 mls @ 70 mls/hr IV .[id number] MATTHEW Last Admin: 04/30/17 23:00 Dose: 70 mls/hr Insulin Human Regular 100 unit (/ Sodium Chloride) 100 mls @ 2 mls/hr IV .Q24H PRN PRN Reason: Protocol Last Titration: 05/01/17 07:00 Dose: 5 units/hr, 5 mls/hr Midazolam HCl (Versed Inj) 1 mg IVP Q1H PRN PRN Reason: Anxiety Last Admin: 05/01/17 06:10 Dose: 1 mg Morphine Sulfate (Morphine) 1 mg IV Q3H PRN PRN Reason: Pain, moderate (4-7) Last Admin: 05/01/17 06:10 Dose: 1 mg Pantoprazole Sodium (Protonix Ec Tab) 40 mg PO DAILY MATTHEW Rosuvastatin Calcium (Crestor) 20 mg PO HS MATTHEW - Labs Labs: 05/01/17 06:44 05/01/17 06:44 PT 13.5 SECONDS (9.7-12.2) H 04/30/17 22:43 INR 1.2 04/30/17 22:43 APTT 71 SECONDS (21-34) H D 05/01/17 00:26
[2017-05-01] MEDS: Pantoprazole 40 mg EC Tab PO SCH (09:39)
--- NOTE | 2017-05-01 09:56 | RAD ---
PROCEDURE: CHEST RADIOGRAPH, 1 VIEW HISTORY: vent COMPARISON: Comparison is made to 05/01/2017 FINDINGS: LUNGS: No significant interval change in the lungs noted since the previous exam. No significant interval change in the position of the ETT. PLEURA: No pneumothorax or pleural fluid seen. CARDIOVASCULAR: Normal. OSSEOUS STRUCTURES: No significant abnormalities. VISUALIZED UPPER ABDOMEN: NG tube is again noted extending to the stomach. OTHER FINDINGS: None. IMPRESSION: No significant interval change noted since the previous exam.
[2017-05-01 09:59] LABS: NEUTROPHIL 79 % (50-75); TOTAL CELLS COUNTED 100
[2017-05-01 10:00] LABS: LARGE PLATELETS PRESENT
[2017-05-01] MEDS ORDERED: Piperacillin/Tazobact 3.375 GM in Sodium Chloride 100 ML IVPB SCH (10:15)
[2017-05-01] MEDS ORDERED: Vancomycin 1 gm/NS 200 ml 1 GM/200 ML BAG IVPB SCH (11:00)
[2017-05-01 12:26] LABS: ABG MECHANICAL RATE 18; ARTERIAL BLOOD GAS MODE PRVC; ATERIAL BLOOD GAS PEEP 5; DRAW SITE A-LINE
[2017-05-01] MEDS ORDERED: Ibuprofen IV 400 MG in Dextrose 5% In Water 100 ML IVPB ONE (16:30)
[2017-05-01] MEDS: Metoprolol 1 mg/ml Inj IVP SCH ×2 (16:37→21:58)
--- NOTE | 2017-05-01 16:49 | CP.PCM.PN ---
Subjective - Date & Time of Evaluation Date of Evaluation: 05/01/17 Time of Evaluation: 08:00 - Subjective Subjective: Hospitalist Attending Note: Patient seen and examine this morning. Patient is awake, intubated, has OGT tube , has sheehan, on Balloon pump. Unable to ROS given patient is intubated. Patient is off pressor. Patient is awake will respond yes and no to questions. Patient able to follow commands including lift hands up and track with your eyes. Patient reports she feels the endotracheal tube in her mouth. Family not present at time of the exam. Patient is surprised. I explained to the patient that she is at at [facility] ICU, she was transferred overnight following complications from procedure which stressed her heart and that she needed a stent to in artery of heat. ICU currently make rounds at the time of exam. Discussed with ICU during the patient, plan for extubation. I discussed with Dr. Morales who is going to see the patient later today, for possible transfer to [place]. Objective - Vital Signs/Intake and Output Vital Signs (last 24 hours): Temp Pulse Resp BP Pulse Ox 98.1 F 104 H 18 118/88 100 05/01/17 12:00 05/01/17 16:02 05/01/17 16:02 05/01/17 16:02 05/01/17 16:02 Intake and Output: 05/01/17 05/01/17 06:59 18:59 Intake Total 832.2 742 Output Total 1800 635 Balance -967.8 107 - Medications Medications: Current Medications Aspirin (Aspirin) 325 mg PO DAILY [facility] Last Admin: 05/01/17 09:39 Dose: 325 mg Clopidogrel Bisulfate (Plavix) 75 mg PO DAILY [facility] Last Admin: 05/01/17 09:39 Dose: 75 mg Heparin Sodium (Porcine) (Heparin) 5,000 units SC Q12 [facility] Last Admin: 05/01/17 09:39 Dose: 5,000 units Norepinephrine Bitartrate 8 mg (/ Dextrose) 258 mls @ 19.35 mls/hr IV .[id number] PRN; Protocol; 10 MCG/MIN PRN Reason: TITRATE PER MD ORDER Last Titration: 05/01/17 02:30 Dose: 0 mcg/min, 0 mls/hr Sodium Chloride (Sodium Chloride 0.9%) 1,000 mls @ 70 mls/hr IV .[id number] [facility] Last Admin: 04/30/17 23:00 Dose: 70 mls/hr Insulin Human Regular 100 unit (/ Sodium Chloride) 100 mls @ 2 mls/hr IV .Q24H PRN PRN Reason: Protocol Last Titration: 05/01/17 12:00 Dose: 3 units/hr, 3 mls/hr Cefepime HCl 1 gm/ Dextrose 50 mls @ 100 mls/hr IVPB Q8H [facility] Last Admin: 05/01/17 11:24 Dose: 100 mls/hr Vancomycin/Sodium Chloride (Vancomycin 1 Gm/Ns 200 Ml) 1 gm in 200 mls @ 166.7 mls/hr IVPB STAT [facility] Stop: 05/06/17 11:01 Ibuprofen 400 mg/ Dextrose 104 mls @ 104 mls/hr IVPB ONCE ONE Stop: 05/01/17 17:29 Metoprolol Tartrate (Lopressor) 2.5 mg IVP Q6H [facility] Last Admin: 05/01/17 16:37 Dose: 2.5 mg Midazolam HCl (Versed Inj) 1 mg IVP Q1H PRN PRN Reason: Anxiety Last Admin: 05/01/17 14:45 Dose: 1 mg Pantoprazole Sodium (Protonix Ec Tab) 40 mg PO DAILY [facility] Last Admin: 05/01/17 09:39 Dose: 40 mg Rosuvastatin Calcium (Crestor) 20 mg PO HS [facility] - Labs Labs: 05/01/17 06:44 05/01/17 06:44 PT 13.5 SECONDS (9.7-12.2) H 04/30/17 22:43 INR 1.2 04/30/17 22:43 APTT 71 SECONDS (21-34) H D 05/01/17 00:26 - Constitutional Appears: Younger Than Stated Age - Head Exam Head Exam: NORMAL INSPECTION - Eye Exam Eye Exam: EOMI, PERRL. absent: Nystagmus, Scleral icterus - ENT Exam ENT Exam: Mucous Membranes Moist - Respiratory Exam Respiratory Exam: NORMAL BREATHING PATTERN. absent: Respiratory Distress, Stridor Additional comments: on vent, intubated - Cardiovascular Exam Cardiovascular Exam: Tachycardia, +S1, +S2 - GI/Abdominal Exam GI & Abdominal Exam: Soft, Normal Bowel Sounds. absent: Distended, Firm, Guarding, Rigid, Tenderness, Mass - Extremities Exam Additional comments: right lower extremity-->warm to touch left lower extremity-->wrapped in dressing, clean, dry, intact - Neurological Exam Neurological Exam: Alert, Awake, Oriented x3 Additional comments: Cranial Nerves 2-12 grossly intact (except CN 1 not tested) grossly intact able to track eyes nod head Strength 5/5 Upper extremities Assessment and Plan (1) Cardiogenic postoperative shock Assessment & Plan: Prior [place] Admission in separate EMR chart Information based on [place] ICU Note 04/30/17: Following surgery, patient was called for Code Blue, underwent CPR/ACLS.for noted hypotension and bradycardia. Follow-up EKG noted for marked ST elevations in the inferior leads, V1-V3 which was different from preoperative EKG 04/23/17. Patient's hgb post-op 5.5 and ordered for 4 units of PRBC which were given. Elevated potassium treated with bicarbonate, calcium, insulin with already elevated sugars. Patient given total 3 Liters crystalloid infused and saline infusions in [place] ICU.Levophed infusion was started at the end of the Code to maintain BP (and requirements lessened to approx 2.5 mcg/min before transfer to [facility] for emergent C-Cath). Labor Representative notified of acute STEMI and case discussed with Dr. Morales. Bedside ECHO performed by Dr. Morales showed inferior hypokinesis and LVEF estimated at approx 30%. With some awakening and improvement in mental status with eye opening to name calling, decision made to transfer for emergent C-Cath. Patient kept on MV support, as she had been intubated for GA in the OR with 7.0 mm ETT, and kept on AC mode, rate set at 12, breathing at 24, TV 400ml, and fiO2 reduced to 50 % with SPO2 maintained at 100%. Patient transferred to [facility] as Code Heart 04/30 following events noted above. Patient underwent cardiac cath 04/30, per discussion with the nurse , patient had lesion of RCA, pending official cardiac cath note. patient received post cardiac cath and transferred to [facility] ICU. Further management per ICU and cardiology. Patient is currently on balloon pump. Lactic acid: 12.400-->7.2--> 4.7-->1.2-->0.8 KELTON: 25--> 144-->104 Interventional cardiology: Dr. Morales on the case. Lopressor 2.5mg IVPQ 6H Crestor 20mg POqHS Aspirin 325mg PO daily Plavix 75mg PO daily Status: Acute (2) Acute ST elevation myocardial infarction (STEMI) Assessment & Plan: Patient transferred to [facility] as Code Heart 04/30 following events noted in separate EMR. Patient underwent cardiac cath 04/30, per discussion with the nurse, patient had lesion of RCA, pending official cardiac cath note. patient received post cardiac cath and transferred to [facility] ICU. Further management per ICU and cardiology. Patient is currently on balloon pump. Lactic acid: 12.400-->7.2--> 4.7-->1.2-->0.8 KELTON: 25--> 144-->104 Interventional cardiology: Dr. Morales on the case. Lopressor 2.5mg IVPQ 6H Crestor 20mg POqHS Aspirin 325mg PO daily Plavix 75mg PO daily Status: Acute (3) Sepsis Assessment & Plan: Cefepime 1gm IVPB Q8H Vancomycin 1 gram IVPB stat procalcitonin: 8.18 pending results of Blood and Urine cultures Status: Acute (4) Charcot's joint of foot Assessment & Plan: 04/30 --charcot foot reconstruction of left at [place]; please note details in [place] hospitalization Post op note: Left foot medial column fusion, bone excision, PT tendon transfer , gastrocnemius recession, bone marrow aspiration. Consult: Dr. Earnestine Thurman podiatry on the case Status: Chronic (5) HLD (hyperlipidemia) Assessment & Plan: Lipid panel: 03/19/17: T, chol: 284, LDL:175, HDL: 48 Crestor 20mg POHs Status: Chronic (6) Acute ischemic heart disease Assessment & Plan: Risk factors: Diabetes, hypertension, lipid disorder, post-operative surgery Interventional cardiology (Dr. Morales) on board-->help appreciated s/p cardiac cath 04/30 awaiting official report on Balloon pump off pressor Aspirin 325mg Po daily Plavix 75mg PO daily Lopressor 2.5mg IVPQ6H Crestor 20mg POqHS NS 50cc/hr Status: Chronic (7) HTN (hypertension) Status: Chronic (8) Diabetes Assessment & Plan: Hgba1c: 9.3-->8.2-->will order hgba1c and lipid panel for tomorrow On insulin drip Status: Chronic (9) Prophylactic measure Assessment & Plan: heparin 5000 units [id number] protonix 40mg PO daily Status: Acute
[2017-05-01] MEDS ORDERED: Magnesium Sulfate 1 gm in D5W 1 GM/100 ML BAG IVPB ONE (18:08)
[2017-05-01 18:39] LABS: DRAW SITE A LINE
[2017-05-01] MEDS: Sodium Chloride 0.9% 1,000 ML IV SCH (18:45)
[2017-05-01] MEDS ORDERED: Vancomycin 1 gm/NS 200 ml 1 GM/200 ML BAG IVPB STA (20:39)
--- NOTE | 2017-05-01 22:09 | CARD ---
APPROVED REPORT EXAM: Two-dimensional and M-mode echocardiogram with Doppler and color Doppler. Other Information Quality : GoodRhythm : INFERIOR STEMI INDICATION INFERIOR STEMI RISK FACTORS Hypertension Hyperlipidemia Diabetes M-Mode DIMENSIONS RVDd1.30 (2.1-3.2cm)Left Atrium (MM)3.01 (2.5-4.0cm) IVSd0.68 (0.7-1.1cm)Aortic Root2.37 (2.2-3.7cm) LVDd5.49 (4.0-5.6cm)Aortic Cusp Exc.1.37 (1.5-2.0cm) PWd0.89 (0.7-1.1cm)FS (%) 17 % LVDs4.56 (2.0-3.8cm)LVEF (%)35 (>50%) Mitral Valve MV E Ngrvbpyn32.6cm/sMV A Kxvayjos35.9cm/sE/A ratio0.8 TDI E/Lateral E'0.0E/Medial E'0.0 Tricuspid Valve TR Peak [id number]/sTR Peak Gr.[id number] LEFT VENTRICLE The left ventricle is normal size. There is normal left ventricular wall thickness. Left ventricle systolic function is moderately impaired. The Ejection Fraction is 30-35%. There is global hypokinesis of the left ventricle. Transmitral Doppler flow pattern is abnormal.Grade I-abnormal relaxation pattern. No left ventricle thrombus noted on this study. RIGHT VENTRICLE The right ventricle is normal size. The right ventricular systolic function is normal. ATRIA The left atrium size is normal. The right atrium size is normal. AORTIC VALVE The aortic valve is mildly thickened. The aortic valve is trileaflet. No aortic regurgitation is present. There is no aortic valvular stenosis. There is no aortic valvular vegetation. MITRAL VALVE Mitral annular calcification is mild to moderate. There is no evidence of mitral valve prolapse. There is no mitral valve stenosis. Mitral regurgitation is mild. TRICUSPID VALVE The tricuspid valve is normal in structure. There is mild tricuspid regurgitation. Right ventricular systolic pressure is estimated at 30-35 mmHg. There is no pulmonary hypertension. There is no tricuspid valve prolapse or vegetation. There is no tricuspid valve stenosis. PULMONIC VALVE The pulmonary valve is normal in structure. There is no pulmonic valvular regurgitation. GREAT VESSELS The aortic root is normal in size. The IVC was not visualized. PERICARDIAL EFFUSION There is no pericardial effusion. There is no pleural effusion. <Conclusion> The left ventricle is normal size. Left ventricle systolic function is moderately impaired. The Ejection Fraction is 30-35%. There is global hypokinesis of the left ventricle. Transmitral Doppler flow pattern is abnormal.Grade I-abnormal relaxation pattern. The right ventricle is normal size. The right ventricular systolic function is normal. The left atrium size is normal. The right atrium size is normal. Mitral regurgitation is mild. There is mild tricuspid regurgitation.
[2017-05-01 22:41] LABS: ALB/GLOB RATIO 0.7 (1.0-2.1); BILIRUBIN,TOTAL 0.9 mg/dL (0.2-1.3); CALCIUM 7.1 mg/dl (8.6-10.4); MAGNESIUM 1.9 mg/dL (1.6-2.3); PHOSPHOROUS 3.4 mg/dL (2.5-4.5); TOTAL PROTEIN 5.2 g/dL (6.3-8.3)
[2017-05-01 22:44] LABS: BASO % 0.2 % (0.0-2.0); HEMATOCRIT 33.8 % (34.0-47.0); LYMPH # 1.9 K/uL (1.0-4.3); LYMPH % 9.9 % (20.0-40.0); MEAN CELL VOLUME 86.4 fL (81.0-99.0); MEAN CORPUSCULAR HEMOGLOBIN 28.4 pg (27.0-31.0); MEAN CORPUSCULAR HGB CONC 32.9 g/dL (33.0-37.0); MEAN PLATELET VOLUME 8.3 fL (7.2-11.7); MONO # 1.5 K/uL (0.0-0.8); MONO % 7.7 % (0.0-10.0); RED CELL DISTRIBUTION WIDTH 15.6 % (11.5-14.5); WHITE BLOOD COUNT 19.1 K/uL (4.8-10.8)
[2017-05-01 22:48] LABS: PLATELET COUNT 128 K/uL (130-400)
[2017-05-01 23:45] LABS: NEUTROPHIL 85 % (50-75); TOTAL CELLS COUNTED 100
[2017-05-01] MEDS ORDERED: Sodium Chloride 0.9% 500 ML IV ONE (23:51)
[2017-05-02] MEDS: Metoprolol 1 mg/ml Inj IVP SCH ×3 (04:09→15:15)
[2017-05-02] MEDS ORDERED: Sodium Chloride 0.9% 500 ML IV ONE (05:23)
[2017-05-02 06:32] LABS: BASO # 0.1 K/uL (0.0-0.2); BASO % 0.4 % (0.0-2.0); EOS % 0.1 % (0.0-4.0); HEMATOCRIT 27.4 % (34.0-47.0); LYMPH # 1.6 K/uL (1.0-4.3); LYMPH % 9.4 % (20.0-40.0); MEAN CELL VOLUME 85.9 fL (81.0-99.0); MEAN CORPUSCULAR HEMOGLOBIN 28.1 pg (27.0-31.0); MEAN CORPUSCULAR HGB CONC 32.7 g/dL (33.0-37.0); MEAN PLATELET VOLUME 8.5 fL (7.2-11.7); MONO # 1.2 K/uL (0.0-0.8); MONO % 7.1 % (0.0-10.0); PLATELET COUNT 113 K/uL (130-400); RED CELL DISTRIBUTION WIDTH 15.2 % (11.5-14.5); WHITE BLOOD COUNT 16.6 K/uL (4.8-10.8)
[2017-05-02 06:43] LABS: ALB/GLOB RATIO 0.9 (1.0-2.1); BILIRUBIN,TOTAL 0.8 mg/dL (0.2-1.3); CALCIUM 7.1 mg/dl (8.6-10.4); MAGNESIUM 1.8 mg/dL (1.6-2.3); POTASSIUM 4.2 mmol/L (3.6-5.2)
[2017-05-02 06:52] LABS: TROPONIN I 29.5 ng/mL (0.00-0.120)
--- NOTE | 2017-05-02 08:13 | CP.PCM.PN ---
Subjective - Date & Time of Evaluation Date of Evaluation: 05/02/17 Time of Evaluation: 08:10 - Subjective Subjective: Medical Attending Note: Patient seen, examined and case discussed with ICU. Patient seen at bedside. Patient s/p extubation 05/01. Patient responds to questions appropriately. Patient reports she would like some water. Denies headache, denies chest pain, denies cough, denies abdominal pain, has not had flatus/nor bowel movement. No family at bedside. Patient is on Balloon pump. Awaiting ICU rounds for further information. Objective - Vital Signs/Intake and Output Vital Signs (last 24 hours): Temp Pulse Resp BP Pulse Ox 98 F 95 H 20 108/59 L 98 05/02/17 04:00 05/02/17 07:00 05/02/17 07:00 05/02/17 07:00 05/02/17 07:00 Intake and Output: 05/02/17 05/02/17 06:59 18:59 Intake Total 2711 50 Output Total 1120 30 Balance 1591 20 - Medications Medications: Current Medications Aspirin (Aspirin) 325 mg PO DAILY [facility] Last Admin: 05/01/17 09:39 Dose: 325 mg Clopidogrel Bisulfate (Plavix) 75 mg PO DAILY [facility] Last Admin: 05/01/17 09:39 Dose: 75 mg Heparin Sodium (Porcine) (Heparin) 5,000 units SC Q12 [facility] Last Admin: 05/01/17 21:58 Dose: 5,000 units Cefepime HCl 1 gm/ Dextrose 50 mls @ 100 mls/hr IVPB Q8H [facility] Last Admin: 05/02/17 01:27 Dose: 100 mls/hr Sodium Chloride (Sodium Chloride 0.9%) 1,000 mls @ 50 mls/hr IV .Q20H [facility] Last Admin: 05/01/17 18:45 Dose: 50 mls/hr Metoprolol Tartrate (Lopressor) 2.5 mg IVP Q6H [facility] Last Admin: 05/02/17 04:09 Dose: 2.5 mg Pantoprazole Sodium (Protonix Ec Tab) 40 mg PO DAILY [facility] Last Admin: 05/01/17 09:39 Dose: 40 mg Rosuvastatin Calcium (Crestor) 20 mg PO HS [facility] Last Admin: 05/01/17 21:58 Dose: 20 mg - Labs Labs: 05/02/17 06:21 05/02/17 06:15 PT 13.5 SECONDS (9.7-12.2) H 04/30/17 22:43 INR 1.2 04/30/17 22:43 APTT 71 SECONDS (21-34) H D 05/01/17 00:26 - Constitutional Appears: Non-toxic, No Acute Distress, Younger Than Stated Age - Head Exam Head Exam: NORMAL INSPECTION - Eye Exam Eye Exam: EOMI - ENT Exam ENT Exam: Mucous Membranes Moist - Respiratory Exam Respiratory Exam: NORMAL BREATHING PATTERN. absent: Stridor - Cardiovascular Exam Cardiovascular Exam: REGULAR RHYTHM, +S1, +S2 - GI/Abdominal Exam GI & Abdominal Exam: Soft, Normal Bowel Sounds. absent: Distended, Firm, Guarding, Rigid, Tenderness, Rebound - Extremities Exam Additional comments: TLC over right groin, left cath groin site clean dry intact Has sheehan Left lower extremity (Charcot joint). wrapped in tay clean/dry/intact; poor nail hgyiene Right lower extremity: clean, dry, intact - Neurological Exam Neurological Exam: Alert, Awake, Oriented x3 Neuro motor strength exam: Left Upper Extremity: 5, Right Upper Extremity: 5, Left Lower Extremity: 5, Right Lower Extremity: 5 Additional comments: Cranial nerve (CN 2-12) except CN I not test grossly intact answers in Turkish appropriately - Skin Skin Exam: Warm Assessment and Plan (1) Cardiogenic postoperative shock Status: Acute (2) Acute ST elevation myocardial infarction (STEMI) Status: Acute (3) Sepsis Status: Acute (4) Charcot's joint of foot Status: Chronic (5) HLD (hyperlipidemia) Status: Chronic (6) Acute ischemic heart disease Status: Chronic (7) HTN (hypertension) Status: Chronic (8) Diabetes Status: Chronic (9) Prophylactic measure Status: Acute - Assessment and Plan (Free Text) Assessment: Assessment and Plan (1) Cardiogenic postoperative shock Assessment & Plan: Prior [place] Admission in separate EMR chart Information based on [place] ICU Note 04/30/17: Following surgery, patient was called for Code Jorge, underwent CPR/ACLS.for noted hypotension and bradycardia. Follow-up EKG noted for marked ST elevations in the inferior leads, V1-V3 which was different from preoperative EKG 04/23/17. Patient's hgb post-op 5.5 and ordered for 4 units of PRBC which were given. Elevated potassium treated with bicarbonate, calcium, insulin with already elevated sugars. Patient given total 3 Liters crystalloid infused and saline infusions in [place] ICU.Levophed infusion was started at the end of the Code to maintain BP (and requirements lessened to approx 2.5 mcg/min before transfer to [facility] for emergent C-Cath). Sourcing Consultant notified of acute STEMI and case discussed with Dr. Morales. Bedside ECHO performed by Dr. Morales showed inferior hypokinesis and LVEF estimated at approx 30%. With some awakening and improvement in mental status with eye opening to name calling, decision made to transfer for emergent C-Cath. Patient kept on MV support, as she had been intubated for GA in the OR with 7.0 mm ETT, and kept on AC mode, rate set at 12, breathing at 24, TV 400ml, and fiO2 reduced to 50 % with SPO2 maintained at 100%. Patient transferred to [facility] as Code Heart 04/30 following events noted above. Patient underwent cardiac cath 04/30, per discussion with the nurse , patient had lesion of RCA, pending official cardiac cath note. patient received post cardiac cath and transferred to [facility] ICU. Further management per ICU and cardiology. Patient is currently on balloon pump. Lactic acid: 12.400-->7.2--> 4.7-->1.2-->0.8 KELTON: 25--> 144-->104 Interventional cardiology: Dr. Morales on the case. Lopressor 2.5mg IVPQ 6H Crestor 20mg POqHS Aspirin 325mg PO daily Plavix 75mg PO daily Status: Acute (2) Acute ST elevation myocardial infarction (STEMI) Assessment & Plan: Patient transferred to [facility] as Code Heart 04/30 following events noted in separate EMR. Patient underwent cardiac cath 04/30, per discussion with the nurse, patient had lesion of RCA, pending official cardiac cath note. patient received post cardiac cath and transferred to [facility] ICU. Further management per ICU and cardiology. Patient is currently on balloon pump. Lactic acid: 12.400-->7.2--> 4.7-->1.2-->0.8 KELTON: 25--> 144-->104 Interventional cardiology: Dr. Morales on the case. Lopressor 2.5mg IVPQ 6H Crestor 20mg POqHS Aspirin 325mg PO daily Plavix 75mg PO daily Status: Acute (3) Sepsis Assessment & Plan: Cefepime 1gm IVPB Q8H (active since 05/01/17) Vancomycin 1 gram IVPB stat given 05/01/17 procalcitonin: 8.18-->pending repeat--f/u pending results of Blood and Urine cultures-->f/u Status: Acute (4) Charcot's joint of foot Assessment & Plan: 04/30 --charcot foot reconstruction of left at [place]; please note details in [place] hospitalization Post op note: Left foot medial column fusion, bone excision, PT tendon transfer , gastrocnemius recession, bone marrow aspiration. Consult: Dr. Earnestine Thurman podiatry on the case Status: Chronic (5) HLD (hyperlipidemia) Assessment & Plan: Lipid panel: 03/19/17: T, chol: 284, LDL:175, HDL: 48 Crestor 20mg POHs Status: Chronic (6) Acute ischemic heart disease Assessment & Plan: Risk factors: Diabetes, hypertension, lipid disorder, post-operative surgery Interventional cardiology (Dr. Morales) on board-->help appreciated s/p cardiac cath 04/30 awaiting official report on Balloon pump off pressor Aspirin 325mg Po daily Plavix 75mg PO daily Lopressor 2.5mg IVPQ6H Crestor 20mg POqHS NS 50cc/hr Status: Chronic (7) HTN (hypertension) Status: Chronic (8) Diabetes Assessment & Plan: Hgba1c: 9.3-->8.2-->will order hgba1c and lipid panel pending off insulin drip [id number] Status: Chronic (9) Prophylactic measure Assessment & Plan: heparin 5000 units [id number] protonix 40mg PO daily pending Swallow eval Nursing bedside swallow Status: Acute Disposition: pending ICU rounds and cardiology rounds.
[2017-05-02 09:15] LABS: NEUTROPHIL 81 % (50-75); TOTAL CELLS COUNTED 100
[2017-05-02] MEDS: Pantoprazole 40 mg EC Tab PO SCH (09:30)
[2017-05-02] MEDS ORDERED: (Lantus) Insulin Glargine, Recombinant SC ONE ×2 (13:30→14:45)
--- NOTE | 2017-05-02 14:27 | CP.PCM.PN ---
Subjective - Date & Time of Evaluation Date of Evaluation: 05/02/17 Time of Evaluation: 14:08 - Subjective Subjective: No events, patient extubated yesterday, following commands, has some hoarseness of voice. Patient has been hemodynamically stable has right groin rodriguez and tlc , and left groin aortic balloon pump. D/w cardiology Dr Morales, plan to recath to assess left main as was of concern during initial cath. Removal of line and balloon pump after evaluated by cardiology. Drop in hemoglobin without apparent loss. Hyperglycemia noticed. Objective - Vital Signs/Intake and Output Vital Signs (last 24 hours): Temp Pulse Resp BP Pulse Ox 98.0 F 102 H 18 150/72 98 05/02/17 12:00 05/02/17 13:00 05/02/17 13:00 05/02/17 13:00 05/02/17 13:00 Intake and Output: 05/02/17 05/02/17 06:59 18:59 Intake Total 2711 830 Output Total 1120 215 Balance 1591 615 - Medications Medications: Current Medications Aspirin (Aspirin) 325 mg PO DAILY [facility] Last Admin: 05/02/17 09:30 Dose: 325 mg Clopidogrel Bisulfate (Plavix) 75 mg PO DAILY [facility] Last Admin: 05/02/17 09:30 Dose: 75 mg Heparin Sodium (Porcine) (Heparin) 5,000 units SC Q12 [facility] Last Admin: 05/02/17 09:31 Dose: 5,000 units Cefepime HCl 1 gm/ Dextrose 50 mls @ 100 mls/hr IVPB Q8H [facility] Last Admin: 05/02/17 09:30 Dose: 100 mls/hr Sodium Chloride (Sodium Chloride 0.9%) 1,000 mls @ 50 mls/hr IV .Q20H [facility] Last Admin: 05/01/17 18:45 Dose: 50 mls/hr Insulin Human Regular (Novolin R) 0 unit SC ACHS [facility] PRN Reason: Protocol Metoprolol Tartrate (Lopressor) 2.5 mg IVP Q6H [facility] Last Admin: 05/02/17 09:30 Dose: 2.5 mg Pantoprazole Sodium (Protonix Ec Tab) 40 mg PO DAILY [facility] Last Admin: 05/02/17 09:30 Dose: 40 mg Rosuvastatin Calcium (Crestor) 20 mg PO HS [facility] Last Admin: 05/01/17 21:58 Dose: 20 mg - Labs Labs: 05/02/17 06:21 05/02/17 06:15 PT 13.5 SECONDS (9.7-12.2) H 04/30/17 22:43 INR 1.2 04/30/17 22:43 APTT 71 SECONDS (21-34) H D 05/01/17 00:26 - Additional Findings Additional findings: * HEENT AUGUST * Neck Supple * Chest tenderness on the left side on chest likely form CPR * PA soft, nt bs present * Ext no edema, lines and aortic balloon pump as above * PERSONNEL OFFICER awake oriented x3, informed about the events by me to the patient. * Skin normal turgor. Assessment and Plan - Assessment and Plan (Free Text) Assessment: * S/P cardiac arrest post left foot reconstruction surg complicated with bleeding with acute ISTEMI, s/p BMS stent, also concern about left main disease has aortic balloon pump, plan for elective recath likely at [facility]. * Uncontrolled DM started on lantus and sliding scale * CRI * Leucocytosis on emperic abx * GI DVT prophylaxis * See orders for detail.
[2017-05-02] MEDS: Sodium Chloride 0.9% 1,000 ML IV SCH (15:10)
--- NOTE | 2017-05-02 15:57 | CP.PCM.CON ---
History of Present Illness - History of Present Illness History of Present Illness: Consultation for s/p STEMI / Cardiogenic shock requiriing IABP: HPI Now awake and responsive Hypertensive Review of Systems - Review of Systems Systems not reviewed;Unavailable: Acuity of Condition - Constitutional Constitutional: As Per HPI - EENT Eyes: As Per HPI Nose/Mouth/Throat: As Per HPI - Breasts Breasts: As Per HPI - Cardiovascular Cardiovascular: As Per HPI - Respiratory Respiratory: As Per HPI - Gastrointestinal Gastrointestinal: As Per HPI - Genitourinary Genitourinary: As Per HPI - Reproductive: Female Reproductive:Female: As Per HPI - Menstruation Menstruation: As Per HPI - Musculoskeletal Musculoskeletal: As Per HPI - Integumentary Integumentary: As Per HPI - Neurological Neurological: As Per HPI - Psychiatric Psychiatric: As Per HPI - Endocrine Endocrine: As Per HPI - Hematologic/Lymphatic Hematologic: As Per HPI Past Patient History - Tetanus Immunizations Tetanus Immunization: Unknown - Past Medical History & Family History Past Medical History?: Yes - Past Social History Smoking Status: Never Smoked Drugs: Other (unknown) Home Situation {Lives}: With Family - CARDIAC Hx Cardiac Disorders: Yes Hx Hypercholesterolemia: Yes Hx Hypertension: Yes - PULMONARY Hx Respiratory Disorders: No - NEUROLOGICAL Hx Neurological Disorder: No - HEENT Hx HEENT Problems: No - RENAL Other/Comment: RECENT KIDNE INFECTION - ENDOCRINE/METABOLIC Hx Endocrine Disorders: Yes Hx Diabetes Mellitus Type 2: Yes - HEMATOLOGICAL/ONCOLOGICAL Hx Blood Disorders: No - INTEGUMENTARY Hx Dermatological Problems: No - MUSCULOSKELETAL/RHEUMATOLOGICAL Hx Musculoskeletal Disorders: No Hx Falls: No Other/Comment: charcot deformity - GASTROINTESTINAL Hx Gastrointestinal Disorders: No - GENITOURINARY/GYNECOLOGICAL Hx Genitourinary Disorders: No Hx Urinary Tract Infection: Yes - PSYCHIATRIC Hx Psychophysiologic Disorder: No Hx Substance Use: No - SURGICAL HISTORY Hx Surgeries: Yes Hx Cardiac Catheterization: Yes Hx Coronary Stent: Yes Other/Comment: Left foot surgery 02/17/17 - ANESTHESIA Hx Anesthesia: Yes Hx Anesthesia Reactions: No Hx Malignant Hyperthermia: No Meds Allergies/Adverse Reactions: Allergies Allergy/AdvReac Type Severity Reaction Status Date / Time No Known Allergies Allergy Verified 03/21/17 17:00 - Medications Medications: Current Medications Aspirin (Aspirin) 325 mg PO DAILY [facility] Last Admin: 05/02/17 09:30 Dose: 325 mg Clopidogrel Bisulfate (Plavix) 75 mg PO DAILY [facility] Last Admin: 05/02/17 09:30 Dose: 75 mg Heparin Sodium (Porcine) (Heparin) 5,000 units SC Q12 [facility] Last Admin: 05/02/17 09:31 Dose: 5,000 units Cefepime HCl 1 gm/ Dextrose 50 mls @ 100 mls/hr IVPB Q8H [facility] Last Admin: 05/02/17 09:30 Dose: 100 mls/hr Sodium Chloride (Sodium Chloride 0.9%) 1,000 mls @ 50 mls/hr IV .Q20H [facility] Last Admin: 05/02/17 15:10 Dose: 50 mls/hr Insulin Human Regular (Novolin R) 0 unit SC ACHS [facility] PRN Reason: Protocol Metoprolol Tartrate (Lopressor) 2.5 mg IVP Q6H [facility] Last Admin: 05/02/17 15:15 Dose: 2.5 mg Pantoprazole Sodium (Protonix Ec Tab) 40 mg PO DAILY [facility] Last Admin: 05/02/17 09:30 Dose: 40 mg Rosuvastatin Calcium (Crestor) 20 mg PO HS [facility] Last Admin: 05/01/17 21:58 Dose: 20 mg Physical Exam - Constitutional Appears: Well - Head Exam Head Exam: ATRAUMATIC, NORMAL INSPECTION, NORMOCEPHALIC - Eye Exam Eye Exam: EOMI, Normal appearance, PERRL Pupil Exam: NORMAL ACCOMODATION, PERRL - ENT Exam ENT Exam: Mucous Membranes Moist, Normal Exam - Neck Exam Neck exam: Positive for: Normal Inspection - Respiratory Exam Respiratory Exam: Clear to Auscultation Bilateral, NORMAL BREATHING PATTERN - Cardiovascular Exam Cardiovascular Exam: REGULAR RHYTHM, RRR, +S1, +S2, Systolic Murmur - GI/Abdominal Exam GI & Abdominal Exam: Normal Bowel Sounds, Soft. absent: Tenderness - Extremities Exam Extremities exam: Positive for: normal inspection - Back Exam Back exam: NORMAL INSPECTION - Neurological Exam Neurological exam: Alert, CN II-XII Intact, Oriented x3, Reflexes Normal - Psychiatric Exam Psychiatric exam: Normal Affect, Normal Mood - Skin Skin Exam: Dry, Intact, Normal Color, Warm Results - Vital Signs Recent Vital Signs: Last Vital Signs Temp 98.0 F 05/02/17 12:00 Pulse 102 H 05/02/17 15:00 Resp 16 05/02/17 15:00 BP 153/79 H 05/02/17 15:00 Pulse Ox 99 05/02/17 15:00 - Labs Result Diagrams: 05/02/17 06:21 05/02/17 06:15 Labs: Laboratory Results - last 24 hr 05/01/17 05/01/17 05/01/17 06:44 14:32 16:00 WBC RBC Hgb Hct MCV MCH MCHC RDW Plt Count MPV Neut % (Auto) Lymph % (Auto) Ponce % (Auto) Eos % (Auto) Baso % (Auto) Neut # Lymph # Ponce # Eos # Baso # Neutrophils % (Manual) Band Neutrophils % Lymphocytes % (Manual) Monocytes % (Manual) Platelet Estimate Hypochromasia (manual) Poikilocytosis (manual Anisocytosis (manual) Ovalocytes Dawson Cells Puncture Site pCO2 pO2 HCO3 ABG pH ABG Total CO2 ABG O2 Saturation ABG Base Excess Hernandez Test ABG Potassium A-a O2 Difference Respiratory Index Sodium Chloride Glucose Lactate FiO2 Potassium Carbon Dioxide Anion Gap BUN Creatinine Est GFR ( Amer) Est GFR (Non-Af Amer) POC Glucose (mg/dL) 150 H Random Glucose Hemoglobin A1c 6.4 Lactic Acid Calcium Phosphorus Magnesium Total Bilirubin AST ALT Alkaline Phosphatase Troponin I Total Protein Albumin Globulin Albumin/Globulin Ratio Procalcitonin 8.18 H Arterial Blood Potassium 05/01/17 05/01/17 05/01/17 17:10 18:23 18:25 WBC RBC Hgb Hct MCV MCH MCHC RDW Plt Count MPV Neut % (Auto) Lymph % (Auto) Ponce % (Auto) Eos % (Auto) Baso % (Auto) Neut # Lymph # Ponce # Eos # Baso # Neutrophils % (Manual) Band Neutrophils % Lymphocytes % (Manual) Monocytes % (Manual) Platelet Estimate Hypochromasia (manual) Poikilocytosis (manual Anisocytosis (manual) Ovalocytes Jasson Cells Puncture Site A line pCO2 27 L pO2 102 H HCO3 17.4 L ABG pH 7.34 L ABG Total CO2 15.4 L ABG O2 Saturation 99.6 H ABG Base Excess -9.6 L Hernandez Test Na ABG Potassium 4.1 A-a O2 Difference 14.0 Respiratory Index 0.1 Sodium 145.0 Chloride 123.0 H Glucose 165 H Lactate 0.7 FiO2 21.0 Potassium Carbon Dioxide Anion Gap BUN Creatinine Est GFR ( Amer) Est GFR (Non-Af Amer) POC Glucose (mg/dL) 167 H Random Glucose Hemoglobin A1c Lactic Acid 0.7 Calcium Phosphorus Magnesium Total Bilirubin AST ALT Alkaline Phosphatase Troponin I Total Protein Albumin Globulin Albumin/Globulin Ratio Procalcitonin Arterial Blood Potassium 4.1 05/01/17 05/01/17 05/01/17 18:30 19:02 19:59 WBC RBC Hgb Hct MCV MCH MCHC RDW Plt Count MPV Neut % (Auto) Lymph % (Auto) Ponce % (Auto) Eos % (Auto) Baso % (Auto) Neut # Lymph # Ponce # Eos # Baso # Neutrophils % (Manual) Band Neutrophils % Lymphocytes % (Manual) Monocytes % (Manual) Platelet Estimate Hypochromasia (manual) Poikilocytosis (manual Anisocytosis (manual) Ovalocytes Dawson Cells Puncture Site pCO2 pO2 HCO3 ABG pH ABG Total CO2 ABG O2 Saturation ABG Base Excess Hernandez Test ABG Potassium A-a O2 Difference Respiratory Index Sodium Chloride Glucose Lactate FiO2 Potassium Carbon Dioxide Anion Gap BUN Creatinine Est GFR ( Amer) Est GFR (Non-Af Amer) POC Glucose (mg/dL) 195 H 150 H 169 H Random Glucose Hemoglobin A1c Lactic Acid Calcium Phosphorus Magnesium Total Bilirubin AST ALT Alkaline Phosphatase Troponin I Total Protein Albumin Globulin Albumin/Globulin Ratio Procalcitonin Arterial Blood Potassium 05/01/17 05/01/17 05/01/17 20:57 22:15 22:16 WBC RBC Hgb Hct MCV MCH MCHC RDW Plt Count MPV Neut % (Auto) Lymph % (Auto) Ponce % (Auto) Eos % (Auto) Baso % (Auto) Neut # Lymph # Ponce # Eos # Baso # Neutrophils % (Manual) Band Neutrophils % Lymphocytes % (Manual) Monocytes % (Manual) Platelet Estimate Hypochromasia (manual) Poikilocytosis (manual Anisocytosis (manual) Ovalocytes Jasson Cells Puncture Site pCO2 pO2 HCO3 ABG pH ABG Total CO2 ABG O2 Saturation ABG Base Excess Hernandez Test ABG Potassium A-a O2 Difference Respiratory Index Sodium 143 Chloride 121 H Glucose Lactate FiO2 Potassium 4.0 Carbon Dioxide 20 L Anion Gap 6 L BUN 19 H Creatinine 1.3 H Est GFR ( Amer) 54 Est GFR (Non-Af Amer) 45 POC Glucose (mg/dL) 160 H 104 Random Glucose 122 H Hemoglobin A1c Lactic Acid Calcium 7.1 L Phosphorus 3.4 Magnesium 1.9 Total Bilirubin 0.9 AST 216 H D ALT 375 H D Alkaline Phosphatase 56 Troponin I Total Protein 5.2 L Albumin 2.1 L Globulin 3.1 Albumin/Globulin Ratio 0.7 L Procalcitonin Arterial Blood Potassium 05/01/17 05/01/17 05/01/17 22:16 22:40 22:58 WBC 19.1 H RBC 3.91 Hgb 11.1 Hct 33.8 L MCV 86.4 MCH 28.4 MCHC 32.9 L RDW 15.6 H Plt Count 128 L D MPV 8.3 Neut % (Auto) 82.2 H Lymph % (Auto) 9.9 L Ponce % (Auto) 7.7 Eos % (Auto) 0.0 Baso % (Auto) 0.2 Neut # 15.7 H Lymph # 1.9 Ponce # 1.5 H Eos # 0.0 Baso # 0.0 Neutrophils % (Manual) 85 H Band Neutrophils % 2 Lymphocytes % (Manual) 9 L Monocytes % (Manual) 4 Platelet Estimate Slightly decreased L Hypochromasia (manual) Poikilocytosis (manual Slight Anisocytosis (manual) Ovalocytes Dawson Cells Puncture Site pCO2 pO2 HCO3 ABG pH ABG Total CO2 ABG O2 Saturation ABG Base Excess Hernandez Test ABG Potassium A-a O2 Difference Respiratory Index Sodium Chloride Glucose Lactate FiO2 Potassium Carbon Dioxide Anion Gap BUN Creatinine Est GFR ( Amer) Est GFR (Non-Af Amer) POC Glucose (mg/dL) 139 H Random Glucose Hemoglobin A1c Lactic Acid 0.9 Calcium Phosphorus Magnesium Total Bilirubin AST ALT Alkaline Phosphatase Troponin I Total Protein Albumin Globulin Albumin/Globulin Ratio Procalcitonin Arterial Blood Potassium 05/02/17 05/02/17 05/02/17 00:24 04:15 06:15 WBC RBC Hgb Hct MCV MCH MCHC RDW Plt Count MPV Neut % (Auto) Lymph % (Auto) Ponce % (Auto) Eos % (Auto) Baso % (Auto) Neut # Lymph # Ponce # Eos # Baso # Neutrophils % (Manual) Band Neutrophils % Lymphocytes % (Manual) Monocytes % (Manual) Platelet Estimate Hypochromasia (manual) Poikilocytosis (manual Anisocytosis (manual) Ovalocytes Dawson Cells Puncture Site pCO2 pO2 HCO3 ABG pH ABG Total CO2 ABG O2 Saturation ABG Base Excess Hernandez Test ABG Potassium A-a O2 Difference Respiratory Index Sodium Chloride Glucose Lactate FiO2 Potassium Carbon Dioxide Anion Gap BUN Creatinine Est GFR ( Amer) Est GFR (Non-Af Amer) POC Glucose (mg/dL) 215 H 185 H Random Glucose Hemoglobin A1c Lactic Acid Calcium Phosphorus Magnesium Total Bilirubin AST ALT Alkaline Phosphatase Troponin I Total Protein Albumin Globulin Albumin/Globulin Ratio Procalcitonin 5.44 H Arterial Blood Potassium 05/02/17 05/02/17 05/02/17 06:15 06:15 06:21 WBC 16.6 H RBC 3.19 L Hgb 9.0 L D Hct 27.4 L MCV 85.9 MCH 28.1 MCHC 32.7 L RDW 15.2 H Plt Count 113 L MPV 8.5 Neut % (Auto) 83.0 H Lymph % (Auto) 9.4 L Ponce % (Auto) 7.1 Eos % (Auto) 0.1 Baso % (Auto) 0.4 Neut # 13.8 H Lymph # 1.6 Ponce # 1.2 H Eos # 0.0 Baso # 0.1 Neutrophils % (Manual) 81 H Band Neutrophils % 3 H Lymphocytes % (Manual) 9 L Monocytes % (Manual) 7 Platelet Estimate Slightly decreased L Hypochromasia (manual) Slight Poikilocytosis (manual Slight Anisocytosis (manual) Slight Ovalocytes Slight Jasson Cells Slight Puncture Site pCO2 pO2 HCO3 ABG pH ABG Total CO2 ABG O2 Saturation ABG Base Excess Hernandez Test ABG Potassium A-a O2 Difference Respiratory Index Sodium 143 Chloride 120 H Glucose Lactate FiO2 Potassium 4.2 Carbon Dioxide 18 L Anion Gap 9 L BUN 17 Creatinine 1.4 H Est GFR ( Amer) 50 Est GFR (Non-Af Amer) 41 POC Glucose (mg/dL) Random Glucose 258 H Hemoglobin A1c Lactic Acid 0.8 Calcium 7.1 L Phosphorus 3.0 Magnesium 1.8 Total Bilirubin 0.8 AST 131 H D ALT 269 H D Alkaline Phosphatase 61 Troponin I 29.5000 H* Total Protein 4.0 L Albumin 1.9 L Globulin 2.1 L Albumin/Globulin Ratio 0.9 L Procalcitonin Arterial Blood Potassium 05/02/17 05/02/17 07:58 12:00 WBC RBC Hgb Hct MCV MCH MCHC RDW Plt Count MPV Neut % (Auto) Lymph % (Auto) Ponce % (Auto) Eos % (Auto) Baso % (Auto) Neut # Lymph # Ponce # Eos # Baso # Neutrophils % (Manual) Band Neutrophils % Lymphocytes % (Manual) Monocytes % (Manual) Platelet Estimate Hypochromasia (manual) Poikilocytosis (manual Anisocytosis (manual) Ovalocytes Dawson Cells Puncture Site pCO2 pO2 HCO3 ABG pH ABG Total CO2 ABG O2 Saturation ABG Base Excess Hernandez Test ABG Potassium A-a O2 Difference Respiratory Index Sodium Chloride Glucose Lactate FiO2 Potassium Carbon Dioxide Anion Gap BUN Creatinine Est GFR ( Amer) Est GFR (Non-Af Amer) POC Glucose (mg/dL) 271 H 281 H Random Glucose Hemoglobin A1c Lactic Acid Calcium Phosphorus Magnesium Total Bilirubin AST ALT Alkaline Phosphatase Troponin I Total Protein Albumin Globulin Albumin/Globulin Ratio Procalcitonin Arterial Blood Potassium Assessment & Plan (1) Acute ST elevation myocardial infarction (STEMI) Assessment and Plan: Cont DAPT Metoprolol 50 mg po bid first dose now echo pending lipitor 80mg po daily cont IABP ( 1:2) Status: Acute (2) Cardiogenic postoperative shock Status: Acute (3) Charcot's joint of foot Status: Chronic (4) Diabetes Status: Chronic (5) HLD (hyperlipidemia) Status: Chronic (6) Renal insufficiency Status: Acute (7) Acute ischemic heart disease Status: Chronic (8) HTN (hypertension) Status: Chronic
[2017-05-02] MEDS: (Novolin R) Insulin Human Regular 100 units/ml vial SC SCH ×2 (16:54→21:31)
--- NOTE | 2017-05-02 22:44 | CP.PCM.CON ---
History of Present Illness - History of Present Illness History of Present Illness: 41 y/o female known to Dr. Chung's service seen at bedside today 2 days s/p left foot Charcot reconstruction. Pt sees Dr. Thurman at [facility], who performed her foot surgery 2 days ago, but is under the care of Dr. Chung at [facility]. Pt is responsive to questions at time of visit. Pt says she is thirsty at this time. Pt is aware she is in the hospital. Pt says she is not in any pain at this time. Pt denies F/C/N/V/SOB at this time. Review of Systems - Review of Systems All systems: reviewed and no additional remarkable complaints except (per HPI) Past Patient History - Tetanus Immunizations Tetanus Immunization: Unknown - Past Medical History & Family History Past Medical History?: Yes - Past Social History Smoking Status: Never Smoked Drugs: Other (unknown) Home Situation {Lives}: With Family - CARDIAC Hx Cardiac Disorders: Yes Hx Hypercholesterolemia: Yes Hx Hypertension: Yes - PULMONARY Hx Respiratory Disorders: No - NEUROLOGICAL Hx Neurological Disorder: No - HEENT Hx HEENT Problems: No - RENAL Other/Comment: RECENT KIDNE INFECTION - ENDOCRINE/METABOLIC Hx Endocrine Disorders: Yes Hx Diabetes Mellitus Type 2: Yes - HEMATOLOGICAL/ONCOLOGICAL Hx Blood Disorders: No - INTEGUMENTARY Hx Dermatological Problems: No - MUSCULOSKELETAL/RHEUMATOLOGICAL Hx Musculoskeletal Disorders: No Hx Falls: No Other/Comment: charcot deformity - GASTROINTESTINAL Hx Gastrointestinal Disorders: No - GENITOURINARY/GYNECOLOGICAL Hx Genitourinary Disorders: No Hx Urinary Tract Infection: Yes - PSYCHIATRIC Hx Psychophysiologic Disorder: No Hx Substance Use: No - SURGICAL HISTORY Hx Surgeries: Yes Hx Cardiac Catheterization: Yes Hx Coronary Stent: Yes Other/Comment: Left foot surgery 02/17/17 - ANESTHESIA Hx Anesthesia: Yes Hx Anesthesia Reactions: No Hx Malignant Hyperthermia: No Meds Allergies/Adverse Reactions: Allergies Allergy/AdvReac Type Severity Reaction Status Date / Time No Known Allergies Allergy Verified 03/21/17 17:00 - Medications Medications: Current Medications Aspirin (Aspirin) 325 mg PO DAILY [facility] Last Admin: 05/02/17 09:30 Dose: 325 mg Clopidogrel Bisulfate (Plavix) 75 mg PO DAILY [facility] Last Admin: 05/02/17 09:30 Dose: 75 mg Heparin Sodium (Porcine) (Heparin) 5,000 units SC Q12 [facility] Last Admin: 05/02/17 21:30 Dose: 5,000 units Cefepime HCl 1 gm/ Dextrose 50 mls @ 100 mls/hr IVPB Q8H [facility] Last Admin: 05/02/17 17:39 Dose: 100 mls/hr Sodium Chloride (Sodium Chloride 0.9%) 1,000 mls @ 50 mls/hr IV .Q20H [facility] Last Admin: 05/02/17 15:10 Dose: 50 mls/hr Insulin Human Regular (Novolin R) 0 unit SC ACHS [facility] PRN Reason: Protocol Last Admin: 05/02/17 21:31 Dose: Not Given Metoprolol Tartrate (Lopressor) 50 mg PO Q12 [facility] Last Admin: 05/02/17 21:30 Dose: 50 mg Pantoprazole Sodium (Protonix Ec Tab) 40 mg PO DAILY [facility] Last Admin: 05/02/17 09:30 Dose: 40 mg Rosuvastatin Calcium (Crestor) 20 mg PO HS [facility] Last Admin: 05/02/17 21:30 Dose: 20 mg Physical Exam - Constitutional Appears: Well, Non-toxic - Extremities Exam Additional comments: Dressing to left lower extremity intact with minor strikethrough noted CFT < 3 sec to all digits of left foot No pedal edema noted B/L - Neurological Exam Neurological exam: Alert - Psychiatric Exam Psychiatric exam: Normal Mood Results - Vital Signs Recent Vital Signs: Last Vital Signs Temp 97.9 F 05/02/17 20:00 Pulse 90 05/02/17 21:01 Resp 17 05/02/17 21:01 BP 141/84 05/02/17 21:01 Pulse Ox 99 05/02/17 21:01 - Labs Result Diagrams: 05/02/17 06:21 05/02/17 06:15 Labs: Laboratory Results - last 24 hr 05/01/17 05/01/17 05/01/17 06:44 22:16 22:16 WBC RBC Hgb Hct MCV MCH MCHC RDW Plt Count MPV Neut % (Auto) Lymph % (Auto) Kle[place] % (Auto) Eos % (Auto) Baso % (Auto) Neut # Lymph # Kleberg # Eos # Baso # Neutrophils % (Manual) Band Neutrophils % Lymphocytes % (Manual) Monocytes % (Manual) Platelet Estimate Hypochromasia (manual) Poikilocytosis (manual Anisocytosis (manual) Ovalocytes [place] Cells Sodium 143 Potassium 4.0 Chloride 121 H Carbon Dioxide 20 L Anion Gap 6 L BUN 19 H Creatinine 1.3 H Est GFR ( Amer) 54 Est GFR (Non-Af Amer) 45 POC Glucose (mg/dL) Random Glucose 122 H Hemoglobin A1c 6.4 Lactic Acid 0.9 Calcium 7.1 L Phosphorus 3.4 Magnesium 1.9 Total Bilirubin 0.9 AST 216 H D ALT 375 H D Alkaline Phosphatase 56 Troponin I NT-Pro-B Natriuret Pep Total Protein 5.2 L Albumin 2.1 L Globulin 3.1 Albumin/Globulin Ratio 0.7 L Procalcitonin 05/01/17 05/01/17 05/02/17 22:40 22:58 00:24 WBC 19.1 H RBC 3.91 Hgb 11.1 Hct 33.8 L MCV 86.4 MCH 28.4 MCHC 32.9 L RDW 15.6 H Plt Count 128 L D MPV 8.3 Neut % (Auto) 82.2 H Lymph % (Auto) 9.9 L Kleberg % (Auto) 7.7 Eos % (Auto) 0.0 Baso % (Auto) 0.2 Neut # 15.7 H Lymph # 1.9 Kleberg # 1.5 H Eos # 0.0 Baso # 0.0 Neutrophils % (Manual) 85 H Band Neutrophils % 2 Lymphocytes % (Manual) 9 L Monocytes % (Manual) 4 Platelet Estimate Slightly decreased L Hypochromasia (manual) Poikilocytosis (manual Slight Anisocytosis (manual) Ovalocytes [place] Cells Sodium Potassium Chloride Carbon Dioxide Anion Gap BUN Creatinine Est GFR ( Amer) Est GFR (Non-Af Amer) POC Glucose (mg/dL) 139 H 215 H Random Glucose Hemoglobin A1c Lactic Acid Calcium Phosphorus Magnesium Total Bilirubin AST ALT Alkaline Phosphatase Troponin I NT-Pro-B Natriuret Pep Total Protein Albumin Globulin Albumin/Globulin Ratio Procalcitonin 05/02/17 05/02/17 05/02/17 04:15 06:15 06:15 WBC RBC Hgb Hct MCV MCH MCHC RDW Plt Count MPV Neut % (Auto) Lymph % (Auto) Kle[place] % (Auto) Eos % (Auto) Baso % (Auto) Neut # Lymph # Kle[place] # Eos # Baso # Neutrophils % (Manual) Band Neutrophils % Lymphocytes % (Manual) Monocytes % (Manual) Platelet Estimate Hypochromasia (manual) Poikilocytosis (manual Anisocytosis (manual) Ovalocytes [place] Cells Sodium 143 Potassium 4.2 Chloride 120 H Carbon Dioxide 18 L Anion Gap 9 L BUN 17 Creatinine 1.4 H Est GFR ( Amer) 50 Est GFR (Non-Af Amer) 41 POC Glucose (mg/dL) 185 H Random Glucose 258 H Hemoglobin A1c Lactic Acid Calcium 7.1 L Phosphorus 3.0 Magnesium 1.8 Total Bilirubin 0.8 AST 131 H D ALT 269 H D Alkaline Phosphatase 61 Troponin I 29.5000 H* NT-Pro-B Natriuret Pep Total Protein 4.0 L Albumin 1.9 L Globulin 2.1 L Albumin/Globulin Ratio 0.9 L Procalcitonin 5.44 H 05/02/17 05/02/17 05/02/17 06:15 06:21 07:58 WBC 16.6 H RBC 3.19 L Hgb 9.0 L D Hct 27.4 L MCV 85.9 MCH 28.1 MCHC 32.7 L RDW 15.2 H Plt Count 113 L MPV 8.5 Neut % (Auto) 83.0 H Lymph % (Auto) 9.4 L Kleberg % (Auto) 7.1 Eos % (Auto) 0.1 Baso % (Auto) 0.4 Neut # 13.8 H Lymph # 1.6 Kleberg # 1.2 H Eos # 0.0 Baso # 0.1 Neutrophils % (Manual) 81 H Band Neutrophils % 3 H Lymphocytes % (Manual) 9 L Monocytes % (Manual) 7 Platelet Estimate Slightly decreased L Hypochromasia (manual) Slight Poikilocytosis (manual Slight Anisocytosis (manual) Slight Ovalocytes Slight Jasson Cells Slight Sodium Potassium Chloride Carbon Dioxide Anion Gap BUN Creatinine Est GFR ( Amer) Est GFR (Non-Af Amer) POC Glucose (mg/dL) 271 H Random Glucose Hemoglobin A1c Lactic Acid 0.8 Calcium Phosphorus Magnesium Total Bilirubin AST ALT Alkaline Phosphatase Troponin I NT-Pro-B Natriuret Pep Total Protein Albumin Globulin Albumin/Globulin Ratio Procalcitonin 05/02/17 05/02/17 05/02/17 12:00 16:12 16:28 WBC RBC Hgb Hct MCV MCH MCHC RDW Plt Count MPV Neut % (Auto) Lymph % (Auto) Kle[place] % (Auto) Eos % (Auto) Baso % (Auto) Neut # Lymph # Kle[place] # Eos # Baso # Neutrophils % (Manual) Band Neutrophils % Lymphocytes % (Manual) Monocytes % (Manual) Platelet Estimate Hypochromasia (manual) Poikilocytosis (manual Anisocytosis (manual) Ovalocytes [place]ass[place] Cells Sodium Potassium Chloride Carbon Dioxide Anion Gap BUN Creatinine Est GFR ( Amer) Est GFR (Non-Af Amer) POC Glucose (mg/dL) 281 H 214 H Random Glucose Hemoglobin A1c Lactic Acid Calcium Phosphorus Magnesium Total Bilirubin AST ALT Alkaline Phosphatase Troponin I NT-Pro-B Natriuret Pep 88287 H Total Protein Albumin Globulin Albumin/Globulin Ratio Procalcitonin 05/02/17 21:27 WBC RBC Hgb Hct MCV MCH MCHC RDW Plt Count MPV Neut % (Auto) Lymph % (Auto) [place] % (Auto) Eos % (Auto) Baso % (Auto) Neut # Lymph # [place] # Eos # Baso # Neutrophils % (Manual) Band Neutrophils % Lymphocytes % (Manual) Monocytes % (Manual) Platelet Estimate Hypochromasia (manual) Poikilocytosis (manual Anisocytosis (manual) Ovalocytes Jasson Cells Sodium Potassium Chloride Carbon Dioxide Anion Gap BUN Creatinine Est GFR ( Amer) Est GFR (Non-Af Amer) POC Glucose (mg/dL) 193 H Random Glucose Hemoglobin A1c Lactic Acid Calcium Phosphorus Magnesium Total Bilirubin AST ALT Alkaline Phosphatase Troponin I NT-Pro-B Natriuret Pep Total Protein Albumin Globulin Albumin/Globulin Ratio Procalcitonin Assessment & Plan - Assessment and Plan (Free Text) Assessment: 41 y/o female 2 days s/p left foot Charcot recon. Pt is 2 days s/p code blue with code heart and STEMI Plan: Pt seen and examined at bedside in ICU Discussed with attending Dr. Chung Discussed with pt's podiatric surgeon Dr. Earnestine Thurman ([facility]) Labs and vitals reviewed- afebrile, WBC 16.6 Dressing to LLE to be kept clean, dry and intact TIFFANY bandage applied lightly over previous post operative surgical bandage Podiatry will continue to monitor patient daily
[2017-05-03] MEDS: Sodium Chloride 0.9% 1,000 ML IV SCH ×2 (05:44→12:18)
[2017-05-03 06:36] LABS: BASO # 0.1 K/uL (0.0-0.2); BASO % 0.3 % (0.0-2.0); EOS # 0.2 K/uL (0.0-0.7); HEMATOCRIT 28.2 % (34.0-47.0); LYMPH # 1.2 K/uL (1.0-4.3); LYMPH % 7.4 % (20.0-40.0); MEAN CELL VOLUME 85.1 fL (81.0-99.0); MEAN CORPUSCULAR HEMOGLOBIN 28.8 pg (27.0-31.0); MEAN CORPUSCULAR HGB CONC 33.8 g/dL (33.0-37.0); MEAN PLATELET VOLUME 8.4 fL (7.2-11.7); MONO # 0.9 K/uL (0.0-0.8); MONO % 5.2 % (0.0-10.0); PLATELET COUNT 142 K/uL (130-400); RED CELL DISTRIBUTION WIDTH 15.4 % (11.5-14.5); WHITE BLOOD COUNT 16.5 K/uL (4.8-10.8)
--- NOTE | 2017-05-03 06:53 | CARDCATH ---
PROCEDURE DATE: 04/30/2017 INDICATIONS: Lianet Lopez is a 41-year-old female who was undergoing an operative surgery of her foot for Charcot joint at [facility]. The patient four hours into the surgery, was noted to be hypotensive and bradycardic for which she was given epinephrine and pseudoephedrine. Subsequently, patient started to lose her pulses at which time initiation of ACLS protocol was started. Patient was given CPR for 30 minutes and subsequently underwent an episode of V-Fib requiring cardioversion and shock and then subsequently was started on pressors. Subsequent EKG showed ST elevation in the inferior leads for which she was emergently transferred after stabilization and intubation in the ICU at [facility] to [facility] for further evaluation and treatment. PROCEDURES PERFORMED: Emergent left heart catheterization with selective left and right coronary angiogram, emergent PCI of mid RCA 100% occlusion with deployment of 3.0 x 33 Xience drug-eluting stent, lesion reduction from 100% down to 0% SARAH-3 flow, right heart catheterization with hemodynamics and saturations, insertion of intraaortic balloon pump for hemodynamic support. TECHNIQUES OF PROCEDURE: After obtaining emergent consent via two physicians, patient was emergently brought over from [facility] to [facility] for evaluation of ST-elevation NC involving the inferior leads and cardiogenic shock and cardiac arrest. Using modified Seldinger technique, a 6-Hungarian sheath was introduced into the left femoral artery and 7-Hungarian sheath was introduced into the left femoral vein. Right and left coronary angiograms were obtained. Right coronary angiogram showed 100% mid RCA occlusion with SARAH-0 flow. Left main had damping of flow with diffuse LAD disease 70% to 80%, diffuse circumflex and OM disease. IMPRESSION: Occluded right coronary artery with diffuse left anterior descending, circumflex and moderate diffuse left main disease. Left ventricular ejection fraction showed inferior hypokinesis with ejection fraction of 40%. TECHNIQUES OF INTERVENTION: After reviewing the above angiographic findings, JR4 guiding catheter was used to engage the right coronary system and a Whisper wire was used to negotiate through the occluded vessel. At the same time, the lesion was pre-dilated with 2.0 balloon and subsequently was stented with 3.0 x 33 Xience drug-eluting stent. Lesion reduction noted to 0% SARAH-3 flow. Subsequently, left coronary angiograms were obtained, which showed disease above. At this point, LVEDP was obtained, which was in the 40 mmHg range. Subsequently, right heart catheterization was obtained. Artery mean pressure was 13. RVEDP was 15. PA pressures mean were 25 and the wedge was 19. Saturation , which are not available to measure the cardiac output. IMPRESSION: Cardiogenic shock, acute myocardial infarction, inferior wall myocardial infarction, severe moderate left main disease with pressure damping suggestive of old severe disease, insertion of intraaortic balloon pump. RECOMMENDATIONS: Patient is to be given two bolus of Integrilin, Plavix 600 mg, aspirin, statins, beta-blockers. Transferred to ICU for close monitoring and observation. Within 24 to 48 hours, patient can be transferred over to a tertiary center for PCI, left main disease. Son Morales MD
[2017-05-03 07:04] LABS: ALB/GLOB RATIO 0.7 (1.0-2.1); ALKALINE PHOSPHATASE 89 U/L (38-126); ALT/SGPT 210 U/L (9-52); AST/SGOT 63 U/L (14-36); BLOOD UREA NITROGEN 15 mg/dL (7-17); CARBON DIOXIDE 19 mmol/L (22-30); CHLORIDE 115 mmol/L (98-107); GFR AFRICAN-AMERICAN > 60; GLUCOSE,RANDOM 160 mg/dL (65-105); MAGNESIUM 1.6 mg/dL (1.6-2.3); PHOSPHOROUS 2.6 mg/dL (2.5-4.5); POTASSIUM 3.8 mmol/L (3.6-5.2); SODIUM 141 mmol/L (132-148); TOTAL PROTEIN 5.7 g/dL (6.3-8.3)
[2017-05-03] MEDS: (Novolin R) Insulin Human Regular 100 units/ml vial SC SCH ×4 (07:30→22:00)
[2017-05-03 08:29] LABS: NEUTROPHIL 79 % (50-75); TOTAL CELLS COUNTED 100
--- NOTE | 2017-05-03 09:13 | CP.PCM.PN ---
<Slick Verdin - Last Filed: 05/03/17 12:53> Subjective - Date & Time of Evaluation Date of Evaluation: 05/03/17 Time of Evaluation: 07:00 - Subjective Subjective: Patient is seen and examined at bedside. Patient's communication is limited, is able to follow commands. Patient did seem to be confused; when asked what year it was she was only able to reply April. When repeatedly asked which year she continued to say April. Patient was not able to answer who the current president is, and also was unaware of her current location which is a change in her status from 05/02 considering according to EMR patient was aware of her location. Patient was able to state her name. On balloon pump augmentation setting 1:2. Heart rate is noted to be 95 bpm, BP 164/79 (unasssisted is 181/91) . Patient denies chest pain, shortness of breath, palpitations. Objective - Vital Signs/Intake and Output Vital Signs (last 24 hours): Temp Pulse Resp BP Pulse Ox 98.4 F 93 H 17 163/91 H 99 05/03/17 08:00 05/03/17 08:01 05/03/17 08:01 05/03/17 08:01 05/03/17 08:01 Intake and Output: 05/03/17 05/03/17 06:59 18:59 Intake Total 1040 100 Output Total 835 775 Balance 205 -675 - Medications Medications: Current Medications Aspirin (Aspirin) 325 mg PO DAILY [facility] Last Admin: 05/02/17 09:30 Dose: 325 mg Clopidogrel Bisulfate (Plavix) 75 mg PO DAILY [facility] Last Admin: 05/02/17 09:30 Dose: 75 mg Heparin Sodium (Porcine) (Heparin) 5,000 units SC Q12 [facility] Last Admin: 05/02/17 21:30 Dose: 5,000 units Cefepime HCl 1 gm/ Dextrose 50 mls @ 100 mls/hr IVPB Q8H [facility] Last Admin: 05/03/17 02:13 Dose: 100 mls/hr Sodium Chloride (Sodium Chloride 0.9%) 1,000 mls @ 50 mls/hr IV .Q20H [facility] Last Admin: 05/03/17 05:44 Dose: 50 mls/hr Insulin Human Regular (Novolin R) 0 unit SC ACHS [facility] PRN Reason: Protocol Last Admin: 05/03/17 07:30 Dose: Not Given Metoprolol Tartrate (Lopressor) 50 mg PO Q12 [facility] Last Admin: 05/02/17 21:30 Dose: 50 mg Pantoprazole Sodium (Protonix Ec Tab) 40 mg PO DAILY [facility] Last Admin: 05/02/17 09:30 Dose: 40 mg Rosuvastatin Calcium (Crestor) 20 mg PO HS [facility] Last Admin: 05/02/17 21:30 Dose: 20 mg - Labs Labs: 05/03/17 06:26 05/03/17 06:26 PT 13.5 SECONDS (9.7-12.2) H 04/30/17 22:43 INR 1.2 04/30/17 22:43 APTT 71 SECONDS (21-34) H D 05/01/17 00:26 - Head Exam Head Exam: ATRAUMATIC, NORMAL INSPECTION, NORMOCEPHALIC - Eye Exam Eye Exam: EOMI - ENT Exam ENT Exam: Mucous Membranes Dry - Neck Exam Neck Exam: Normal Inspection - Respiratory Exam Respiratory Exam: Clear to Ausculation Bilateral, NORMAL BREATHING PATTERN - Cardiovascular Exam Cardiovascular Exam: Tachycardia, +S1, +S2. absent: Clicks, Gallop, Rubs - GI/Abdominal Exam GI & Abdominal Exam: Soft, Hypoactive Bowel Sounds - Neurological Exam Neurological Exam: Awake. absent: Oriented x3 - Psychiatric Exam Psychiatric exam: Normal Affect - Skin Skin Exam: Normal Color, Warm Assessment and Plan - Assessment and Plan (Free Text) Assessment: Patient is a 41 year old female with a history of DM of twenty years as well as hypertension not controlled with medication found to have inferior KS s/p foot reconstruction surgery. Plan: 1. STEMI - IABP placed, will access for removal or transfer to [place] depending on echo results - Continue with Plavix, Metoprolol, Nitroglycerin IV drip, Rosuvastatin - BNP 05/03 11,000. New BNP ordered; results pending 2. Tachycardia - Metoprolol increased from 50 mg BID to 100 mg BID <Son Morales - Last Filed: 05/03/17 16:48> Objective - Vital Signs/Intake and Output Vital Signs (last 24 hours): Temp Pulse Resp BP Pulse Ox 98 F 75 15 135/77 99 05/03/17 12:00 05/03/17 15:01 05/03/17 15:01 05/03/17 15:01 05/03/17 13:02 Intake and Output: 05/03/17 05/03/17 06:59 18:59 Intake Total 1040 1617.5 Output Total 835 1780 Balance 205 -162.5 - Medications Medications: Current Medications Aspirin (Aspirin) 325 mg PO DAILY [facility] Last Admin: 05/03/17 09:45 Dose: 325 mg Clopidogrel Bisulfate (Plavix) 75 mg PO DAILY [facility] Last Admin: 05/03/17 09:45 Dose: 75 mg Heparin Sodium (Porcine) (Heparin) 5,000 units SC Q12 [facility] Last Admin: 05/03/17 09:45 Dose: 5,000 units Cefepime HCl 1 gm/ Dextrose 50 mls @ 100 mls/hr IVPB Q8H [facility] Last Admin: 05/03/17 10:03 Dose: 100 mls/hr Sodium Chloride (Sodium Chloride 0.9%) 1,000 mls @ 50 mls/hr IV .Q20H [facility] Last Admin: 05/03/17 12:18 Dose: Not Given Nitroglycerin/Dextrose (Nitroglycerin 50 Mg/250 Ml D5w) 50 mg in 250 mls @ 7.5 mls/hr IV .Q24H MATTHEW; 25 MCG/MIN PRN Reason: Protocol Last Admin: 05/03/17 10:04 Dose: 25 mcg/min, 7.5 mls/hr Insulin Human Regular (Novolin R) 0 unit SC ACHS [facility] PRN Reason: Protocol Last Admin: 05/03/17 12:10 Dose: 3 unit Metoprolol Tartrate (Lopressor) 100 mg PO BID [facility] Pantoprazole Sodium (Protonix Ec Tab) 40 mg PO DAILY [facility] Last Admin: 05/03/17 09:45 Dose: 40 mg Rosuvastatin Calcium (Crestor) 20 mg PO HS [facility] Last Admin: 05/02/17 21:30 Dose: 20 mg Saccharomyces Boulardii (Florastor) 250 mg PO BID [facility] - Labs Labs: 05/03/17 06:26 05/03/17 06:26 PT 13.5 SECONDS (9.7-12.2) H 04/30/17 22:43 INR 1.2 04/30/17 22:43 APTT 71 SECONDS (21-34) H D 05/01/17 00:26 Assessment and Plan (1) Acute ST elevation myocardial infarction (STEMI) Status: Acute (2) Cardiogenic postoperative shock Status: Acute (3) Charcot's joint of foot Status: Chronic (4) Diabetes Status: Chronic (5) HLD (hyperlipidemia) Status: Chronic (6) Renal insufficiency Status: Acute (7) Acute ischemic heart disease Status: Chronic (8) HTN (hypertension) Status: Chronic Attending/Attestation - Attestation I have personally seen and examined this patient.: Yes I have fully participated in the care of the patient.: Yes I have reviewed all pertinent clinical information, including history, physical exam and plan: Yes Notes (Text): pt seen and evaluated HD stable on IABP Repeat echo reviewed - normal filling pressures IABP removed BP and HR stable cont DAPT cont BB, statins, nitrates will plan for IVUS/FFR of left main and LAD in 24-48 hours depending on clinical course
[2017-05-03] MEDS ORDERED: Magnesium Sulfate 1 gm in D5W 1 GM/100 ML BAG IVPB ONE (09:29)
[2017-05-03] MEDS: Pantoprazole 40 mg EC Tab PO SCH (09:45)
[2017-05-03] MEDS: Nitroglycerin 50mg in D5W 50 MG/250 ML BOTTLE IV SCH (10:04)
--- NOTE | 2017-05-03 10:57 | CP.CCUPN ---
CCU Subjective - Physician Review Subjective (Free Text): PGY1 ICU Progress Note for Dr. Chapman Patient seen and examined at bedside this morning. Patient is able to follow simple commands. She states she feels overall very weak and has some soreness in her left chest but is not in any pain at this time. She states she no other complaints at this time. CCU Objective - Vital Signs / Intake & Output Vital Signs (Last 4 hours): Vital Signs Temp Pulse Resp BP Pulse Ox 05/03/17 10:04 95 H 18 184/94 H 99 05/03/17 10:02 97 H 19 184/94 H 05/03/17 10:00 98 H 21 05/03/17 09:12 97 H 21 165/95 H 100 05/03/17 09:02 97 H 19 05/03/17 09:00 98 H 21 100 05/03/17 08:01 93 H 17 163/91 H 99 05/03/17 08:00 98.4 F 96 H 16 99 05/03/17 07:01 93 H 15 173/89 H 98 05/03/17 07:00 92 H 15 98 Intake and Output (Last 8hrs): Intake & Output 05/02/17 05/03/17 05/03/17 22:59 06:59 14:59 Intake Total 1060 600 850 Output Total 3132 622 7227 Balance -90 315 -325 Weight 116 lb Intake: Intake, IV Amount 400 400 250 Right Proximal Port 400 400 250 Femoral Oral 660 200 600 Output: Urine 7775 514 9520 Urethral ([place]) [phone] - Physical Exam Head: Positive for: Atraumatic, Normocephalic Pupils: Positive for: PERRL Mouth: Positive for: Dry Neck: Positive for: Normal Range of Motion Respiratory/Chest: Positive for: Clear to Auscultation. Negative for: Respiratory Distress, Accessory Muscle Use Cardiovascular: Positive for: Regular Rate and Rhythm Abdomen: Positive for: Normal Bowel Sounds. Negative for: Tenderness, Distention, Peritoneal Signs Upper Extremity: Positive for: Normal Inspection. Negative for: Edema Lower Extremity: Positive for: Normal Inspection. Negative for: Edema Skin: Positive for: Warm, Dry Psychiatric: Positive for: Alert, Lethargic. Negative for: Oriented x 3 - Medications Active Medications: Active Medications Generic Name Dose Route Start Last Admin Trade Name Freq PRN Reason Stop Dose Admin Aspirin 325 mg 05/01/17 10:00 05/03/17 09:45 Aspirin PO 325 mg DAILY MATTHEW Administration Clopidogrel Bisulfate 75 mg 05/01/17 10:00 05/03/17 09:45 Plavix PO 75 mg DAILY MATTHEW Administration Heparin Sodium (Porcine) 5,000 units 05/01/17 10:00 05/03/17 09:45 Heparin SC 5,000 units Q12 MATTHEW Administration Cefepime HCl 1 gm/ Dextrose 50 mls @ 100 mls/hr 05/01/17 10:15 05/03/17 10:03 IVPB 100 mls/hr Q8H MATTHEW Administration Sodium Chloride 1,000 mls @ 50 mls/hr 05/01/17 18:04 05/03/17 05:44 Sodium Chloride 0.9% IV 50 mls/hr .Q20H MATTHEW Administration Nitroglycerin/Dextrose 50 mg in 250 mls @ 7.5 mls/hr 05/03/17 10:00 05/03/17 10:04 Nitroglycerin 50 Mg/250 Ml D5w IV 25 mcg/min .Q24H MATTHEW 7.5 mls/hr Protocol Administration 25 MCG/MIN Insulin Human Regular 0 unit 05/02/17 16:30 05/03/17 07:30 Novolin R SC Not Given ACHS [facility] Protocol Metoprolol Tartrate 100 mg 05/03/17 18:00 Lopressor PO BID [facility] Pantoprazole Sodium 40 mg 05/01/17 10:00 05/03/17 09:45 Protonix Ec Tab PO 40 mg DAILY MATTHEW Administration Rosuvastatin Calcium 20 mg 05/01/17 22:00 05/02/17 21:30 Crestor PO 20 mg HS MATTHEW Administration - Patient Studies Lab Studies: Microbiology Studies 05/01/17 Unknown Blood Culture - Preliminary Blood-Venous Gram Stain - Final 05/01/17 10:00 Blood Culture - Preliminary Blood-Venous NO GROWTH AFTER 24 HOURS 04/30/17 Unknown MRSA Culture (Admit) - Final Nose MRSA NOT DETECTED 05/01/17 Unknown Urine Culture - Final Urine,Clean Catch No Growth (<1,000 CFU/ML) Lab Studies 05/03/17 05/03/17 05/03/17 Range/Units 07:11 06:26 06:26 WBC 16.5 H (4.8-10.8) K/uL RBC 3.31 L (3.80-5.20) Mil/uL Hgb 9.5 L (11.0-16.0) g/dL Hct 28.2 L (34.0-47.0) % MCV 85.1 (81.0-99.0) fL MCH 28.8 (27.0-31.0) pg MCHC 33.8 (33.0-37.0) g/dL RDW 15.4 H (11.5-14.5) % Plt Count 142 (130-400) K/uL MPV 8.4 (7.2-11.7) fL Neut % (Auto) 86.1 H (50.0-75.0) % Lymph % (Auto) 7.4 L (20.0-40.0) % [place] % (Auto) 5.2 (0.0-10.0) % Eos % (Auto) 1.0 (0.0-4.0) % Baso % (Auto) 0.3 (0.0-2.0) % Neut # 14.2 H (1.8-7.0) K/uL Lymph # 1.2 (1.0-4.3) K/uL [place] # 0.9 H (0.0-0.8) K/uL Eos # 0.2 (0.0-0.7) K/uL Baso # 0.1 (0.0-0.2) K/uL Neutrophils % (Manual) 79 H (50-75) % Band Neutrophils % 5 H (0-2) % Lymphocytes % (Manual) 9 L (20-40) % Monocytes % (Manual) 7 (0-10) % Platelet Estimate Normal (NORMAL) Poikilocytosis (manual Slight Anisocytosis (manual) Slight [place] Cells Slight Sodium 141 (132-148) mmol/L Potassium 3.8 (3.6-5.2) mmol/L Chloride 115 H (98-107) mmol/L Carbon Dioxide 19 L (22-30) mmol/L Anion Gap 10 (10-20) BUN 15 (7-17) mg/dL Creatinine 1.1 (0.7-1.2) mg/dL Est GFR ( Amer) > 60 Est GFR (Non-Af Amer) 54 POC Glucose (mg/dL) 134 H (65-110) mg/dL Random Glucose 160 H (65-105) mg/dL Calcium 8.0 L (8.6-10.4) mg/dl Phosphorus 2.6 (2.5-4.5) mg/dL Magnesium 1.6 (1.6-2.3) mg/dL Total Bilirubin 1.0 (0.2-1.3) mg/dL AST 63 H D (14-36) U/L ALT 210 H D (9-52) U/L Alkaline Phosphatase 89 (38-126) U/L NT-Pro-B Natriuret Pep 26703 H (0-450) pg/mL Total Protein 5.7 L (6.3-8.3) g/dL Albumin 2.3 L D (3.5-5.0) g/dL Globulin 3.4 (2.2-3.9) gm/dL Albumin/Globulin Ratio 0.7 L (1.0-2.1) 05/02/17 05/02/17 05/02/17 Range/Units 21:27 16:28 16:12 WBC (4.8-10.8) K/uL RBC (3.80-5.20) Mil/uL Hgb (11.0-16.0) g/dL Hct (34.0-47.0) % MCV (81.0-99.0) fL MCH (27.0-31.0) pg MCHC (33.0-37.0) g/dL RDW (11.5-14.5) % Plt Count (130-400) K/uL MPV (7.2-11.7) fL Neut % (Auto) (50.0-75.0) % Lymph % (Auto) (20.0-40.0) % [place] % (Auto) (0.0-10.0) % Eos % (Auto) (0.0-4.0) % Baso % (Auto) (0.0-2.0) % Neut # (1.8-7.0) K/uL Lymph # (1.0-4.3) K/uL [place] # (0.0-0.8) K/uL Eos # (0.0-0.7) K/uL Baso # (0.0-0.2) K/uL Neutrophils % (Manual) (50-75) % Band Neutrophils % (0-2) % Lymphocytes % (Manual) (20-40) % Monocytes % (Manual) (0-10) % Platelet Estimate (NORMAL) Poikilocytosis (manual Anisocytosis (manual) [place] Cells Sodium (132-148) mmol/L Potassium (3.6-5.2) mmol/L Chloride (98-107) mmol/L Carbon Dioxide (22-30) mmol/L Anion Gap (10-20) BUN (7-17) mg/dL Creatinine (0.7-1.2) mg/dL Est GFR ( Amer) Est GFR (Non-Af Amer) POC Glucose (mg/dL) 193 H 214 H (65-110) mg/dL Random Glucose (65-105) mg/dL Calcium (8.6-10.4) mg/dl Phosphorus (2.5-4.5) mg/dL Magnesium (1.6-2.3) mg/dL Total Bilirubin (0.2-1.3) mg/dL AST (14-36) U/L ALT (9-52) U/L Alkaline Phosphatase (38-126) U/L NT-Pro-B Natriuret Pep 97799 H (0-450) pg/mL Total Protein (6.3-8.3) g/dL Albumin (3.5-5.0) g/dL Globulin (2.2-3.9) gm/dL Albumin/Globulin Ratio (1.0-2.1) 05/02/17 Range/Units 12:00 WBC (4.8-10.8) K/uL RBC (3.80-5.20) Mil/uL Hgb (11.0-16.0) g/dL Hct (34.0-47.0) % MCV (81.0-99.0) fL MCH (27.0-31.0) pg MCHC (33.0-37.0) g/dL RDW (11.5-14.5) % Plt Count (130-400) K/uL MPV (7.2-11.7) fL Neut % (Auto) (50.0-75.0) % Lymph % (Auto) (20.0-40.0) % [place] % (Auto) (0.0-10.0) % Eos % (Auto) (0.0-4.0) % Baso % (Auto) (0.0-2.0) % Neut # (1.8-7.0) K/uL Lymph # (1.0-4.3) K/uL [place] # (0.0-0.8) K/uL Eos # (0.0-0.7) K/uL Baso # (0.0-0.2) K/uL Neutrophils % (Manual) (50-75) % Band Neutrophils % (0-2) % Lymphocytes % (Manual) (20-40) % Monocytes % (Manual) (0-10) % Platelet Estimate (NORMAL) Poikilocytosis (manual Anisocytosis (manual) [place] Cells Sodium (132-148) mmol/L Potassium (3.6-5.2) mmol/L Chloride (98-107) mmol/L Carbon Dioxide (22-30) mmol/L Anion Gap (10-20) BUN (7-17) mg/dL Creatinine (0.7-1.2) mg/dL Est GFR ( Amer) Est GFR (Non-Af Amer) POC Glucose (mg/dL) 281 H (65-110) mg/dL Random Glucose (65-105) mg/dL Calcium (8.6-10.4) mg/dl Phosphorus (2.5-4.5) mg/dL Magnesium (1.6-2.3) mg/dL Total Bilirubin (0.2-1.3) mg/dL AST (14-36) U/L ALT (9-52) U/L Alkaline Phosphatase (38-126) U/L NT-Pro-B Natriuret Pep (0-450) pg/mL Total Protein (6.3-8.3) g/dL Albumin (3.5-5.0) g/dL Globulin (2.2-3.9) gm/dL Albumin/Globulin Ratio (1.0-2.1) Laboratory Results - last 24 hr 05/02/17 05/02/17 05/02/17 12:00 16:12 16:28 WBC RBC Hgb Hct MCV MCH MCHC RDW Plt Count MPV Neut % (Auto) Lymph % (Auto) [place] % (Auto) Eos % (Auto) Baso % (Auto) Neut # Lymph # [place] # Eos # Baso # Neutrophils % (Manual) Band Neutrophils % Lymphocytes % (Manual) Monocytes % (Manual) Platelet Estimate Poikilocytosis (manual Anisocytosis (manual) [place] Cells Sodium Potassium Chloride Carbon Dioxide Anion Gap BUN Creatinine Est GFR ( Amer) Est GFR (Non-Af Amer) POC Glucose (mg/dL) 281 H 214 H Random Glucose Calcium Phosphorus Magnesium Total Bilirubin AST ALT Alkaline Phosphatase NT-Pro-B Natriuret Pep 89016 H Total Protein Albumin Globulin Albumin/Globulin Ratio 05/02/17 05/03/17 05/03/17 21:27 06:26 06:26 WBC 16.5 H RBC 3.31 L Hgb 9.5 L Hct 28.2 L MCV 85.1 MCH 28.8 MCHC 33.8 RDW 15.4 H Plt Count 142 MPV 8.4 Neut % (Auto) 86.1 H Lymph % (Auto) 7.4 L [place] % (Auto) 5.2 Eos % (Auto) 1.0 Baso % (Auto) 0.3 Neut # 14.2 H Lymph # 1.2 [place] # 0.9 H Eos # 0.2 Baso # 0.1 Neutrophils % (Manual) 79 H Band Neutrophils % 5 H Lymphocytes % (Manual) 9 L Monocytes % (Manual) 7 Platelet Estimate Normal Poikilocytosis (manual Slight Anisocytosis (manual) Slight [place] Cells Slight Sodium 141 Potassium 3.8 Chloride 115 H Carbon Dioxide 19 L Anion Gap 10 BUN 15 Creatinine 1.1 Est GFR ( Amer) > 60 Est GFR (Non-Af Amer) 54 POC Glucose (mg/dL) 193 H Random Glucose 160 H Calcium 8.0 L Phosphorus 2.6 Magnesium 1.6 Total Bilirubin 1.0 AST 63 H D ALT 210 H D Alkaline Phosphatase 89 NT-Pro-B Natriuret Pep 53660 H Total Protein 5.7 L Albumin 2.3 L D Globulin 3.4 Albumin/Globulin Ratio 0.7 L 05/03/17 07:11 WBC RBC Hgb Hct MCV MCH MCHC RDW Plt Count MPV Neut % (Auto) Lymph % (Auto) [place] % (Auto) Eos % (Auto) Baso % (Auto) Neut # Lymph # [place] # Eos # Baso # Neutrophils % (Manual) Band Neutrophils % Lymphocytes % (Manual) Monocytes % (Manual) Platelet Estimate Poikilocytosis (manual Anisocytosis (manual) [place] Cells Sodium Potassium Chloride Carbon Dioxide Anion Gap BUN Creatinine Est GFR ( Amer) Est GFR (Non-Af Amer) POC Glucose (mg/dL) 134 H Random Glucose Calcium Phosphorus Magnesium Total Bilirubin AST ALT Alkaline Phosphatase NT-Pro-B Natriuret Pep Total Protein Albumin Globulin Albumin/Globulin Ratio Fingerstick Blood Sugar Results: 134 Review of Systems - Review of Systems All systems: reviewed and no additional remarkable complaints except (as per HPI ) Critical Care Progress Note - Nutrition Nutrition: Nutrition Category Date Time Status Heart Healthy Diet [DIET] Diets 05/02/17 Dinner Active Assessment/Plan - Assessment and Plan (Free Text) Assessment: 41 year old female s/p cardiac arrest post left foot reconstruction surg complicated with bleeding with acute STEMI, s/p BMS stent, also concern about left main disease has aortic balloon pump, plan for elective recath likely at [facility]. Plan: CV: Cardio consult, Dr. Morales, help appreciated CODE Blue STEMI - s/p BM stent placement Cardiogenic shock - requiring IABP Aspirin 325mg PO daily Plavix 75mg PO daily Metoprolol Tartrate 100 mg PO BID Crestory 20mg PO HS Nitro drip NS @ 50mLs/hr f/u ECHO - awaiting official report f/u cardio recs - plan for elective recath likely at [facility] - possible removal of IABP today Endo: ISS ID: [id number] Cefepime 1gm IV q8h (started on 05/01) - empiric therapy Urine Culture (05/01) - negative Blood Culture (05/01) - negative at 48 hours x2 Podiatry: Dr. Chung consulted, help appreciated Dr. Thurman consulted, help appreciated s/p Charcot joint surgery Prophylactic Care: Heparin 5000units SC q12h Protonix 40mg PO daily Florastor 250mg PO q12h Case discussed with Dr. Adela Bolton Saúl PGY1
--- NOTE | 2017-05-03 12:02 | CP.PCM.PN ---
Subjective - Date & Time of Evaluation Date of Evaluation: 05/03/17 Time of Evaluation: 11:30 - Subjective Subjective: Hospitalist Progress Note Patient was seen and examined at 11:30 AM 05/03/17 ICU Bed 11. 41 year old female who was transferred to [facility] from [facility]] on S/P Code Blue/STEMI after Left Charcoat Joint Reconstruction on 05/10/17. She was extubated on 05/01/17 and currently has IntraAortic Balloon Pump. Currently upon FULL ROS: NO chest pain NO SOB NO abdominal pain NO n/v NO headache NO lightheadedness NO new changes in vision NO new changes in hearing Exam: General: Patient was asleep but easily arousable. She is in no acute distress. However, I had to repeat ROS questions multiple times and she was slow to answer. Explained to her the events since 04/30/17 and she nodded head yes that she understood. She is aware of who she is and where but could not provide the exact date/year although stating that it was April. She was following commands during exam. HEENT: NCA, EOMI, PERRLA, NO pharyngeal erythema/exudate, NO cervical lymphadenopathy, NO thyromegaly, Dry Nasal Turbinates and Oral mucosa Cardio: NS1 and NS2, NO M/R/G Resp: CTA B/L, NO R/R/W GI: BSx4, Soft, NT, ND, NO guarding/rebound tenderness, NO HSM Ext: Left Lower Leg in [place] Bandages and sensation to the exposed foot is NOT intact to my touch on either the dorsal/pedal surface however patient can move the toes. Pulses are strong and equal, Capillary Refill is 2 seconds, NO edema Neuro: CN II through XII are grossly intact Assessment and Plan (1) Cardiogenic postoperative shock Assessment & Plan: Prior [place] Admission in separate EMR chart Information based on [place] ICU Note 04/30/17: Following surgery, patient was called for Code Blue, underwent CPR/ACLS.for noted hypotension and bradycardia. Follow-up EKG noted for marked ST elevations in the inferior leads, V1-V3 which was different from preoperative EKG 04/23/17. Patient's hgb post-op 5.5 and ordered for 4 units of PRBC which were given. Elevated potassium treated with bicarbonate, calcium, insulin with already elevated sugars. Patient given total 3 Liters crystalloid infused and saline infusions in [place] ICU.Levophed infusion was started at the end of the Code to maintain BP (and requirements lessened to approx 2.5 mcg/min before transfer to [facility] for emergent C-Cath). Managing Manager notified of acute STEMI and case discussed with Dr. Morales. Bedside ECHO performed by Dr. Morales showed inferior hypokinesis and LVEF estimated at approx 30%. With some awakening and improvement in mental status with eye opening to name calling, decision made to transfer for emergent C-Cath. Patient kept on MV support, as she had been intubated for GA in the OR with 7.0 mm ETT, and kept on AC mode, rate set at 12, breathing at 24, TV 400ml, and fiO2 reduced to 50 % with SPO2 maintained at 100%. Patient transferred to [facility] as Code Heart 04/30 following events noted above. Patient underwent cardiac cath 04/30/17 which showed LVER at 40% with inferior hypokinesis, Right Coronary is occluded with diffuse Left Anterior Descedning and Circumflex with moderate diffuse Left Main disease Currently on Intra-Aortic Balloon Pump Extubated 05/01/17 F/U repeat 2D Echocardiogram 05/03/17 Interventional cardiology: Dr. Morales on the case. Metoprolol 100 mg PO BID Crestor 20mg POqHS Aspirin 325mg PO daily Plavix 75mg PO daily Status: Acute (2) Acute ST elevation myocardial infarction (STEMI) Assessment & Plan: Please see Assessment and Plan #1 Interventional cardiology: Dr. Morales on the case. Metoprolol 100 mg PO BID Crestor 20mg POqHS Aspirin 325mg PO daily Plavix 75mg PO daily Status: Acute (3) Sepsis Assessment & Plan: Cefepime 1gm IVPB Q8H (active since 05/01/17) Vancomycin 1 gram IVPB (stat given 05/01/17) Chest X Ray 05/01/17 showed NO evidence of active disease Urine Culture 05/01/17 shows NO growth Blood Culture 05/01/17 is negative to date MRSA 04/30/17 is NOT detected Status: Acute (4) Charcot's joint of foot Assessment & Plan: 04/30/17 Charcot Foot reconstruction of Left at [facility] ; please note details in [place] hospitalization Post op note: Left foot medial column fusion, bone excision, PT tendon transfer , gastrocnemius recession, bone marrow aspiration. I spoke with Podiatry Resident Dr. Colby and Dr. Earnestine Thurman who performed Charcot Foot reconstruction does not come to [facility]. Dr. Colby will speak with Chemical Economist Dr. Chung to see if she will be following patient while she is here at [facility]. Patient for possible splinting of the Left Foot either today or \ tomorrow 05/04/17 NO weight bearing Status: Chronic (5) HLD (hyperlipidemia) Assessment & Plan: Lipid panel: 03/19/17: T, chol: 284, LDL:175, HDL: 48 Crestor 20mg POHs Status: Chronic (6) Acute Ischemic heart disease Assessment & Plan: Risk factors: Diabetes, hypertension, lipid disorder, post-operative surgery Currently with IABP Cardiac Catheterization 04/30/17 which showed LVER at 40% with inferior hypokinesis, Right Coronary is occluded with diffuse Left Anterior Descedning and Circumflex with moderate diffuse Left Main disease Interventional cardiology (Dr. Morales): awaiting further recommendations concerning plan for findings on Cardiac Cath Aspirin 325mg Po daily Plavix 75mg PO daily Metoprolol 100 mg PO BID Crestor 20mg POqHS NS 50cc/hr Status: Chronic (7) HTN (hypertension) Status: Chronic Metoprolol 100 mg PO TID Nitroglycerin 25 mcg/min (8) Diabetes Assessment & Plan: Hgba1c 05/01/17: 6.4 Lipid panel 03/19/17: T, chol: 284, LDL:175, HDL: 48 RISS Heart Healthy Moderate Carbohydrate Consistent Diet [id number] Status: Chronic (9) Anemia Likely secondary to Chronic Disease HgB/Hct are stable Status: Chronic (10) Elevated LFTs Likely secondary to the Cardiogenic Shock Trending down Status: Acute (11) Prophylactic measure Assessment & Plan: Heparin 5000 units [id number] Protonix 40mg PO daily Florastor 250 mg PO BID NS 50 ml/hr Status: Acute Will get CT Head w/o contrast once patient's IABP is removed by Cardiology. Objective - Vital Signs/Intake and Output Vital Signs (last 24 hours): Temp Pulse Resp BP Pulse Ox 98.4 F 83 18 184/94 H 99 05/03/17 08:00 05/03/17 11:00 05/03/17 10:04 05/03/17 10:04 05/03/17 10:04 Intake and Output: 05/03/17 05/03/17 06:59 18:59 Intake Total 1040 907.5 Output Total 835 1295 Balance 205 -387.5 - Medications Medications: Current Medications Aspirin (Aspirin) 325 mg PO DAILY [facility] Last Admin: 05/03/17 09:45 Dose: 325 mg Clopidogrel Bisulfate (Plavix) 75 mg PO DAILY [facility] Last Admin: 05/03/17 09:45 Dose: 75 mg Heparin Sodium (Porcine) (Heparin) 5,000 units SC Q12 MATTHEW Last Admin: 05/03/17 09:45 Dose: 5,000 units Cefepime HCl 1 gm/ Dextrose 50 mls @ 100 mls/hr IVPB Q8H [facility] Last Admin: 05/03/17 10:03 Dose: 100 mls/hr Sodium Chloride (Sodium Chloride 0.9%) 1,000 mls @ 50 mls/hr IV .Q20H [facility] Last Admin: 05/03/17 05:44 Dose: 50 mls/hr Nitroglycerin/Dextrose (Nitroglycerin 50 Mg/250 Ml D5w) 50 mg in 250 mls @ 7.5 mls/hr IV .Q24H MATTHEW; 25 MCG/MIN PRN Reason: Protocol Last Admin: 05/03/17 10:04 Dose: 25 mcg/min, 7.5 mls/hr Insulin Human Regular (Novolin R) 0 unit SC ACHS [facility] PRN Reason: Protocol Last Admin: 05/03/17 07:30 Dose: Not Given Metoprolol Tartrate (Lopressor) 100 mg PO BID [facility] Pantoprazole Sodium (Protonix Ec Tab) 40 mg PO DAILY [facility] Last Admin: 05/03/17 09:45 Dose: 40 mg Rosuvastatin Calcium (Crestor) 20 mg PO HS [facility] Last Admin: 05/02/17 21:30 Dose: 20 mg Saccharomyces Boulardii (Florastor) 250 mg PO BID [facility] - Labs Labs: 05/03/17 06:26 05/03/17 06:26 PT 13.5 SECONDS (9.7-12.2) H 04/30/17 22:43 INR 1.2 04/30/17 22:43 APTT 71 SECONDS (21-34) H D 12/09/17 00:26
--- NOTE | 2017-05-03 12:07 | CP.PCM.PN ---
Subjective - Date & Time of Evaluation Date of Evaluation: 05/03/17 Time of Evaluation: 12:06 - Subjective Subjective: Podiatry progress note for Dr. Chung 41 y/o female was seen at bedside today 3 days s/p left foot Charcot reconstruction with attending, Dr. Chung. Pt is responsive to questions at time of visit. Pt is aware she is in the hospital. Pt says she is not in any pain at this time. Pt denies F/C/N/V/SOB at this time. Objective - Vital Signs/Intake and Output Vital Signs (last 24 hours): Temp Pulse Resp BP Pulse Ox 98.4 F 83 18 184/94 H 99 05/03/17 08:00 05/03/17 11:00 05/03/17 10:04 05/03/17 10:04 05/03/17 10:04 Intake and Output: 05/03/17 05/03/17 06:59 18:59 Intake Total 1040 907.5 Output Total 835 1295 Balance 205 -387.5 - Medications Medications: Current Medications Aspirin (Aspirin) 325 mg PO DAILY [facility] Last Admin: 05/03/17 09:45 Dose: 325 mg Clopidogrel Bisulfate (Plavix) 75 mg PO DAILY [facility] Last Admin: 05/03/17 09:45 Dose: 75 mg Heparin Sodium (Porcine) (Heparin) 5,000 units SC Q12 [facility] Last Admin: 05/03/17 09:45 Dose: 5,000 units Cefepime HCl 1 gm/ Dextrose 50 mls @ 100 mls/hr IVPB Q8H MATTHEW Last Admin: 05/03/17 10:03 Dose: 100 mls/hr Sodium Chloride (Sodium Chloride 0.9%) 1,000 mls @ 50 mls/hr IV .Q20H MATTHEW Last Admin: 05/03/17 05:44 Dose: 50 mls/hr Nitroglycerin/Dextrose (Nitroglycerin 50 Mg/250 Ml D5w) 50 mg in 250 mls @ 7.5 mls/hr IV .Q24H MATTHEW; 25 MCG/MIN PRN Reason: Protocol Last Admin: 05/03/17 10:04 Dose: 25 mcg/min, 7.5 mls/hr Insulin Human Regular (Novolin R) 0 unit SC ACHS MATTHEW PRN Reason: Protocol Last Admin: 05/03/17 07:30 Dose: Not Given Metoprolol Tartrate (Lopressor) 100 mg PO BID [facility] Pantoprazole Sodium (Protonix Ec Tab) 40 mg PO DAILY [facility] Last Admin: 05/03/17 09:45 Dose: 40 mg Rosuvastatin Calcium (Crestor) 20 mg PO HS [facility] Last Admin: 05/02/17 21:30 Dose: 20 mg Saccharomyces Boulardii (Florastor) 250 mg PO BID [facility] - Labs Labs: 05/03/17 06:26 05/03/17 06:26 PT 13.5 SECONDS (9.7-12.2) H 04/30/17 22:43 INR 1.2 04/30/17 22:43 APTT 71 SECONDS (21-34) H D 05/01/17 00:26 - Constitutional Appears: Non-toxic, No Acute Distress - Extremities Exam Additional comments: Dressing to left lower extremity intact CFT < 3 sec to all digits of left foot No pedal edema noted B/L - Neurological Exam Neurological Exam: Alert, Awake Assessment and Plan - Assessment and Plan (Free Text) Assessment: 41 y/o female 3 days s/p left foot Charcot recon. Pt is 3 days s/p code blue with code heart and STEMI Plan: Pt seen and examined at bedside in ICU with attending Dr. Chung Discussed with pt's podiatric surgeon Dr. Earnestine Thurman ([facility]) Labs and vitals reviewed- afebrile, WBC 16.5 Dressing to LLE to be kept clean, dry and intact TIFFANY bandage applied lightly over previous post operative surgical bandage Patient to remain non WB to LLE Podiatry will continue to monitor patient daily
[2017-05-03] MEDS ORDERED: Morphine 4 MG/ML VIAL ONE (16:10)
[2017-05-03] MEDS ORDERED: Morphine 4 MG/ML VIAL IV ONE (17:00)
[2017-05-03] MEDS: Saccharomyces Boulardi 250 mg Cap PO SCH (17:40)
--- NOTE | 2017-05-03 19:05 | CT ---
PROCEDURE: CT HEAD WITHOUT CONTRAST. HISTORY: Hx of Code Blue. Any evidence of Stroke? COMPARISON: None available. TECHNIQUE: Axial computed tomography images were obtained through the head/brain without intravenous contrast. Radiation dose: Total exam DLP = 1035.32 mGy-cm. This CT exam was performed using one or more of the following dose reduction techniques: Automated exposure control, adjustment of the mA and/or kV according to patient size, and/or use of iterative reconstruction technique. FINDINGS: HEMORRHAGE: No acute parenchymal, subarachnoid or extra-axial hemorrhage. BRAIN: There is a discrete acute infarct seen in the left posterior cerebral artery distribution. Additionally, there appears to be a subtle acute infarct changes in the right cerebellum as well. . . There appears to be some very minor chronic periventricular white matter ischemic changes. VENTRICLES: Unremarkable. No hydrocephalus. CALVARIUM: The no acute calvarial fractures. . PARANASAL SINUSES: Visualized paranasal and mastoid air complexes are well-developed and currently well-aerated. No fluid levels seen to suggest acute sinusitis. There appears to be some localized on mucous secretion within the posterior aspect of the left nasal cavity and left nasal pharyngeal region. The. MASTOID AIR CELLS: Unremarkable as visualized. No inflammatory changes. OTHER FINDINGS: None. IMPRESSION: Acute infarct left posterior cerebral artery distribution. . There also appears to be acute infarct changes in the right cerebellum. . Minimal chronic periventricular white matter ischemic changes. No acute intracranial hemorrhage. These findings discussed with Dr.s Masterson and Saúl at approximately 6:55p.m. with written down and read back verification.
[2017-05-03 22:34] VITALS: O2SAT 100
--- NOTE | 2017-05-03 23:56 | CARD ---
APPROVED REPORT EXAM: Two-dimensional and M-mode echocardiogram with Doppler and color Doppler. Other Information Quality : [employer] : INDICATION INFERIOR MT 2D DIMENSIONS IVSd1.0 (0.7-1.1cm)LVDd4.7 (3.9-5.9cm) PWd0.8 (0.7-1.1cm)LVDs4.1 (2.5-4.0cm) FS (%) 12.9 %LVEF (%)27.7 (>50%) M-Mode DIMENSIONS RVDd1.83 (2.1-3.2cm)IVSd0.87 (0.7-1.1cm) LVDd4.99 (4.0-5.6cm)PWd0.87 (0.7-1.1cm) FS (%) 15 %LVDs4.23 (2.0-3.8cm) LVEF (%)32 (>50%) Mitral Valve MV E Srlaxvhq580.4cm/sMV A Cehfzhtw883.5cm/sE/A ratio0.9 TDI E/Lateral E'0.0E/Medial E'0.0 Tricuspid Valve TR Peak [id number]/sTR Peak [id number] LEFT VENTRICLE The left ventricle is normal size. There is normal left ventricular wall thickness. Left ventricle systolic function is moderately impaired. The Ejection Fraction is 40-45%. Global hypokinesia more pronounced in the inferior wall. Probable stuned myocardium Transmitral Doppler flow pattern is Grade I-abnormal relaxation pattern. There is no ventricular septal defect visualized. RIGHT VENTRICLE The right ventricle is normal size. The right ventricular systolic function is normal. ATRIA The left atrium is mildly dilated. The right atrium size is normal. AORTIC VALVE The aortic valve is mildly sclerotic. The aortic valve is tri-cuspid. No aortic regurgitation is present. There is no aortic valvular stenosis. MITRAL VALVE The mitral valve is normal in structure. There is no evidence of mitral valve prolapse. Mitral regurgitation is mild. With anteriorly oriented jet TRICUSPID VALVE The tricuspid valve is normal in structure. There is trace tricuspid regurgitation. Right ventricular systolic pressure is estimated at less than 30 mmHg. There is no pulmonary hypertension. PULMONIC VALVE The pulmonary valve is normal in structure. There is no pulmonic valvular regurgitation. GREAT VESSELS The aortic root is normal in size. The ascending aorta is normal in size. The IVC is normal in size and collapses >50% with inspiration. PERICARDIAL EFFUSION There is no pericardial effusion. <Conclusion> Left ventricle systolic function is moderately impaired. The Ejection Fraction is 40-45%. Global hypokinesia more pronounced in the inferior wall. Transmitral Doppler flow pattern is Grade I-abnormal relaxation pattern. Mitral regurgitation is mild. With anteriorly oriented jet
[2017-05-04] MEDS: Sodium Chloride 0.9% 1,000 ML IV SCH (05:55)
[2017-05-04 06:47] LABS: BASO % 0.3 % (0.0-2.0); EOS # 0.4 K/uL (0.0-0.7); EOS % 2.9 % (0.0-4.0); HEMATOCRIT 26.8 % (34.0-47.0); LYMPH # 1.9 K/uL (1.0-4.3); LYMPH % 15.2 % (20.0-40.0); MEAN CORPUSCULAR HEMOGLOBIN 28.9 pg (27.0-31.0); MEAN PLATELET VOLUME 7.9 fL (7.2-11.7); MONO % 7.8 % (0.0-10.0); RED CELL DISTRIBUTION WIDTH 14.3 % (11.5-14.5); WHITE BLOOD COUNT 12.4 K/uL (4.8-10.8)
[2017-05-04 06:56] LABS: ALKALINE PHOSPHATASE 90 U/L (38-126); ALT/SGPT 125 U/L (9-52); AST/SGOT 38 U/L (14-36); BILIRUBIN,TOTAL 0.7 mg/dL (0.2-1.3); BLOOD UREA NITROGEN 17 mg/dL (7-17); CALCIUM 7.5 mg/dl (8.6-10.4); CARBON DIOXIDE 19 mmol/L (22-30); CHLORIDE 110 mmol/L (98-107); CHOLESTEROL 151 mg/dL (0-199); GFR AFRICAN-AMERICAN > 60; GLUCOSE,RANDOM 149 mg/dL (65-105); MAGNESIUM 1.7 mg/dL (1.6-2.3); PHOSPHOROUS 2.6 mg/dL (2.5-4.5); POTASSIUM 3.5 mmol/L (3.6-5.2); SODIUM 134 mmol/L (132-148); TOTAL PROTEIN 4.6 g/dL (6.3-8.3)
--- NOTE | 2017-05-04 07:00 | CP.PCM.CON ---
History of Present Illness - History of Present Illness History of Present Illness: CONSULT DICTATED POST CARDIAC ARREST AND BALOONING WITH CATH RT HOMONYMOUS HEMIANOPSIA APPENDICULAR DYSMETRIA SEVERE NEUROPATHY NOT A CANDIDATE FOR ANTICOAG DUE TO HEMORRHAGIC CONVERSION NEEDS WORK UP ASPER ORDER CONTINUE ANTIPLTS STATIC AND ARB OR ACEI DVT PROPHYLAXIS Past Patient History - Tetanus Immunizations Tetanus Immunization: Unknown - Past Medical History & Family History Past Medical History?: Yes - Past Social History Smoking Status: Never Smoked Drugs: Other (unknown) Home Situation {Lives}: With Family - CARDIAC Hx Cardiac Disorders: Yes Hx Hypercholesterolemia: Yes Hx Hypertension: Yes - PULMONARY Hx Respiratory Disorders: No - NEUROLOGICAL Hx Neurological Disorder: No - HEENT Hx HEENT Problems: No - RENAL Other/Comment: RECENT KIDNE INFECTION - ENDOCRINE/METABOLIC Hx Endocrine Disorders: Yes Hx Diabetes Mellitus Type 2: Yes - HEMATOLOGICAL/ONCOLOGICAL Hx Blood Disorders: No - INTEGUMENTARY Hx Dermatological Problems: No - MUSCULOSKELETAL/RHEUMATOLOGICAL Hx Musculoskeletal Disorders: No Hx Falls: No Other/Comment: charcot deformity - GASTROINTESTINAL Hx Gastrointestinal Disorders: No - GENITOURINARY/GYNECOLOGICAL Hx Genitourinary Disorders: No Hx Urinary Tract Infection: Yes - PSYCHIATRIC Hx Psychophysiologic Disorder: No Hx Substance Use: No - SURGICAL HISTORY Hx Surgeries: Yes Hx Cardiac Catheterization: Yes Hx Coronary Stent: Yes Other/Comment: Left foot surgery 02/17/17 - ANESTHESIA Hx Anesthesia: Yes Hx Anesthesia Reactions: No Hx Malignant Hyperthermia: No Meds Allergies/Adverse Reactions: Allergies Allergy/AdvReac Type Severity Reaction Status Date / Time No Known Allergies Allergy Verified 03/21/17 17:00 - Medications Medications: Current Medications Aspirin (Aspirin) 325 mg PO DAILY [facility] Last Admin: 05/03/17 09:45 Dose: 325 mg Clopidogrel Bisulfate (Plavix) 75 mg PO DAILY [facility] Last Admin: 05/03/17 09:45 Dose: 75 mg Famotidine (Pepcid) 20 mg PO BID [facility] Heparin Sodium (Porcine) (Heparin) 5,000 units SC Q12 [facility] Last Admin: 05/03/17 21:40 Dose: 5,000 units Cefepime HCl 1 gm/ Dextrose 50 mls @ 100 mls/hr IVPB Q8H [facility] Last Admin: 05/04/17 02:00 Dose: 100 mls/hr Sodium Chloride (Sodium Chloride 0.9%) 1,000 mls @ 50 mls/hr IV .Q20H [facility] Last Admin: 05/03/17 12:18 Dose: Not Given Nitroglycerin/Dextrose (Nitroglycerin 50 Mg/250 Ml D5w) 50 mg in 250 mls @ 7.5 mls/hr IV .Q24H MATTHEW; 25 MCG/MIN PRN Reason: Protocol Last Titration: 05/03/17 22:00 Dose: 0 mcg/min, 0 mls/hr Insulin Human Regular (Novolin R) 0 unit SC ACHS [facility] PRN Reason: Protocol Last Admin: 05/03/17 22:00 Dose: Not Given Metoprolol Tartrate (Lopressor) 100 mg PO BID [facility] Last Admin: 05/03/17 17:40 Dose: 100 mg Rosuvastatin Calcium (Crestor) 20 mg PO HS [facility] Last Admin: 05/03/17 21:40 Dose: 20 mg Saccharomyces Boulardii (Florastor) 250 mg PO BID [facility] Last Admin: 05/03/17 17:40 Dose: 250 mg Results - Vital Signs Recent Vital Signs: Last Vital Signs Temp 98.1 F 05/04/17 04:00 Pulse 74 05/04/17 04:00 Resp 12 05/04/17 04:00 BP 143/81 05/04/17 04:01 Pulse Ox 100 05/04/17 04:00 - Labs Result Diagrams: 05/03/17 06:26 05/04/17 06:22 Labs: Laboratory Results - last 24 hr 05/03/17 05/03/17 05/03/17 06:26 06:26 06:26 Neutrophils % (Manual) 79 H Band Neutrophils % 5 H Lymphocytes % (Manual) 9 L Monocytes % (Manual) 7 Platelet Estimate Normal Poikilocytosis (manual Slight Anisocytosis (manual) Slight Jasson Cells Slight Sodium 141 Potassium 3.8 Chloride 115 H Carbon Dioxide 19 L Anion Gap 10 BUN 15 Creatinine 1.1 Est GFR ( Amer) > 60 Est GFR (Non-Af Amer) 54 POC Glucose (mg/dL) Random Glucose 160 H Calcium 8.0 L Phosphorus 2.6 Magnesium 1.6 Total Bilirubin 1.0 AST 63 H D ALT 210 H D Alkaline Phosphatase 89 NT-Pro-B Natriuret Pep 63415 H Total Protein 5.7 L Albumin 2.3 L D Globulin 3.4 Albumin/Globulin Ratio 0.7 L Triglycerides Cholesterol LDL Cholesterol Direct HDL Cholesterol Procalcitonin 2.70 H 05/03/17 05/03/17 05/03/17 07:11 11:49 16:40 Neutrophils % (Manual) Band Neutrophils % Lymphocytes % (Manual) Monocytes % (Manual) Platelet Estimate Poikilocytosis (manual Anisocytosis (manual) [place] Cells Sodium Potassium Chloride Carbon Dioxide Anion Gap BUN Creatinine Est GFR ( Amer) Est GFR (Non-Af Amer) POC Glucose (mg/dL) 134 H 206 H 230 H Random Glucose Calcium Phosphorus Magnesium Total Bilirubin AST ALT Alkaline Phosphatase NT-Pro-B Natriuret Pep Total Protein Albumin Globulin Albumin/Globulin Ratio Triglycerides Cholesterol LDL Cholesterol Direct HDL Cholesterol Procalcitonin 05/03/17 05/04/17 21:28 06:22 Neutrophils % (Manual) Band Neutrophils % Lymphocytes % (Manual) Monocytes % (Manual) Platelet Estimate Poikilocytosis (manual Anisocytosis (manual) Jasson Cells Sodium 134 Potassium 3.5 L Chloride 110 H Carbon Dioxide 19 L Anion Gap 8 L BUN 17 Creatinine 1.0 Est GFR ( Amer) > 60 Est GFR (Non-Af Amer) > 60 POC Glucose (mg/dL) 169 H Random Glucose 149 H Calcium 7.5 L Phosphorus 2.6 Magnesium 1.7 Total Bilirubin 0.7 AST 38 H D ALT 125 H D Alkaline Phosphatase 90 NT-Pro-B Natriuret Pep Total Protein 4.6 L Albumin 2.3 L Globulin 2.3 Albumin/Globulin Ratio 1.0 Triglycerides 197 H Cholesterol 151 LDL Cholesterol Direct 86 HDL Cholesterol 29 L Procalcitonin
[2017-05-04 07:22] LABS: HOMOCYSTEINE 7.9 umol/L (4.7-12.6)
[2017-05-04] MEDS ORDERED: Potassium Chloride 20 mEq ER Tab PO STA ×2 (07:48→09:55)
--- NOTE | 2017-05-04 09:07 | CP.PCM.PN ---
Subjective - Date & Time of Evaluation Date of Evaluation: 05/04/17 Time of Evaluation: 09:00 - Subjective Subjective: Hospitalist Progress Note Patient was seen and examined at 9:00 AM 05/04/17 ICU Bed 11. 41 year old female who was transferred to [facility] ([facility]3] from [facility] on S/P Code Blue/STEMI after Left Charcoat Joint Reconstruction on 05/10/17. She was extubated on 05/01/17 and had IntraAortic Balloon Pump which was removed on 05/03/17. CT Head 05/03/17 revealed acute infarct left posterior cerebral artery distribution, acute infarcts right cerebellum, chronic perventricular white matter changes, no hemorrhage noted. Neurologist Dr. Masterson is following. At present Dr. Morales's Cardiology Team's plan for the findings on Cardiac Catheterization on 04/30/17 is for IVUS/FFR of left main and LAD in 24-48 hours depending on clinical course. Currently upon FULL ROS: NO chest pain NO SOB NO abdominal pain NO n/v NO headache NO lightheadedness NO new changes in vision NO new changes in hearing Exam: General: Patient is awake, she knows where she is, knew the month and the year. She was provided with today's date and day. She was informed of her diagnosises of STEMI and Stroke and she was given the opportunity to ask questions. HEENT: NCA, EOMI, PERRLA, NO pharyngeal erythema/exudate, NO cervical lymphadenopathy, NO thyromegaly, Dry Nasal Turbinates and Oral mucosa Cardio: NS1 and NS2, NO M/R/G Resp: CTA B/L, NO R/R/W GI: BSx4, Soft, NT, ND, NO guarding/rebound tenderness, NO HSM Ext: Left Lower Leg in William Bandages and sensation to the exposed foot is NOT intact to my touch on either the dorsal/pedal surface however patient can move the toes. Pulses are strong and equal, Capillary Refill is 2 seconds, NO edema Neuro: CN II through XII are grossly intact Assessment and Plan (1) Cardiogenic postoperative shock Assessment & Plan: Prior [place] Admission in separate EMR chart Information based on [place] ICU Note 04/30/17: Following surgery, patient was called for Code Blue, underwent CPR/ACLS.for noted hypotension and bradycardia. Follow-up EKG noted for marked ST elevations in the inferior leads, V1-V3 which was different from preoperative EKG 04/23/17. Patient's hgb post-op 5.5 and ordered for 4 units of PRBC which were given. Elevated potassium treated with bicarbonate, calcium, insulin with already elevated sugars. Patient given total 3 Liters crystalloid infused and saline infusions in [place] ICU.Levophed infusion was started at the end of the Code to maintain BP (and requirements lessened to approx 2.5 mcg/min before transfer to [facility] ([facility]3] for emergent C-Cath). Electric Organ Inspector And Repairer notified of acute STEMI and case discussed with Dr. Morales. Bedside ECHO performed by Dr. Morales showed inferior hypokinesis and LVEF estimated at approx 30%. With some awakening and improvement in mental status with eye opening to name calling, decision made to transfer for emergent C-Cath. Patient kept on MV support, as she had been intubated for GA in the OR with 7.0 mm ETT, and kept on AC mode, rate set at 12, breathing at 24, TV 400ml, and fiO2 reduced to 50 % with SPO2 maintained at 100%. Patient transferred to [facility]3] as Code Heart 04/30 following events noted above. Patient underwent cardiac cath 04/30/17 which showed LVER at 40% with inferior hypokinesis, Right Coronary is occluded with diffuse Left Anterior Descedning and Circumflex with moderate diffuse Left Main disease Currently on Intra-Aortic Balloon Pump Extubated 05/01/17 F/U repeat 2D Echocardiogram 05/03/17 Interventional cardiology: Dr. Morales on the case. Metoprolol 100 mg PO BID Crestor 20mg POqHS Aspirin 325mg PO daily Plavix 75mg PO daily Status: Acute (2) Acute ST elevation myocardial infarction (STEMI) Assessment & Plan: Please see Assessment and Plan #1 Interventional cardiology: Dr. Morales on the case. Metoprolol 100 mg PO BID Crestor 20mg POqHS Aspirin 325mg PO daily Plavix 75mg PO daily Status: Acute (3) Sepsis Assessment & Plan: Cefepime 1gm IVPB Q8H (active since 05/01/17) Vancomycin 1 gram IVPB (stat given 05/01/17) Chest X Ray 05/01/17 showed NO evidence of active disease Urine Culture 05/01/17 shows NO growth Blood Culture 05/01/17 preliminary shows gram variable bacilli. Consult placed for ID Dr. Dueñas for further antibiotic recommendations. MRSA 04/30/17 is NOT detected Status: Acute (4) Charcot's joint of foot Assessment & Plan: 04/30/17 Charcot Foot reconstruction of Left at [facility] ; please note details in [place] hospitalization Post op note: Left foot medial column fusion, bone excision, PT tendon transfer , gastrocnemius recession, bone marrow aspiration. I spoke with Podiatry Resident Dr. Colby 05/03/17, and Dr. Earnestine Thurman who performed Charcot Foot reconstruction does not come to [facility]3]. Dr. Colby will speak with Nursing Specialist Dr. Chung to see if she will be following patient while she is here at [facility]. Patient for possible splinting of the Left Foot NO weight bearing and this was discussed with PT on 05/04/17 Status: Chronic (5) HLD (hyperlipidemia) Assessment & Plan: Lipid panel: 03/19/17: T, chol: 284, LDL:175, HDL: 48 Crestor 20mg POHs Status: Chronic (6) Acute Ischemic heart disease Assessment & Plan: Risk factors: Diabetes, hypertension, lipid disorder, post-operative surgery Currently with IABP Cardiac Catheterization 04/30/17 which showed LVER at 40% with inferior hypokinesis, Right Coronary is occluded with diffuse Left Anterior Descedning and Circumflex with moderate diffuse Left Main disease Interventional cardiology (Dr. Morales): At present Dr. Morales's Cardiology Team's plan for the findings on Cardiac Catheterization on 04/30/17 is for IVUS/FFR of left main and LAD in 24-48 hours depending on clinical course. Aspirin 325mg Po daily Plavix 75mg PO daily Metoprolol 100 mg PO BID Crestor 20mg POqHS NS 50cc/hr Status: Chronic (7) HTN (hypertension) Status: Chronic Metoprolol 100 mg PO TID Nitroglycerin 25 mcg/min (8) Diabetes Assessment & Plan: Hgba1c 05/01/17: 6.4 Lipid panel 03/19/17: T, chol: 284, LDL:175, HDL: 48 RISS Heart Healthy Moderate Carbohydrate Consistent Diet [id number] Status: Chronic (9) Anemia Likely secondary to Chronic Disease HgB/Hct are stable Status: Chronic (10) Elevated LFTs Likely secondary to the Cardiogenic Shock Trending down Status: Acute (11) Prophylactic measure Assessment & Plan: Heparin 5000 units [id number] has been discontinued considering findings on CT Head 05/03/17. SCD to the Right leg only Protonix 40mg PO daily Florastor 250 mg PO BID NS 50 ml/hr Status: Acute Objective - Vital Signs/Intake and Output Vital Signs (last 24 hours): Temp Pulse Resp BP Pulse Ox 98 F 91 H 15 153/81 H 100 05/04/17 08:00 05/04/17 08:01 05/04/17 08:01 05/04/17 08:01 05/04/17 08:01 Intake and Output: 05/04/17 05/04/17 06:59 18:59 Intake Total 615.0 150 Output Total 235 150 Balance 380.0 0 - Medications Medications: Current Medications Aspirin (Aspirin) 325 mg PO DAILY [facility] Last Admin: 05/03/17 09:45 Dose: 325 mg Clopidogrel Bisulfate (Plavix) 75 mg PO DAILY [facility] Last Admin: 05/03/17 09:45 Dose: 75 mg Famotidine (Pepcid) 20 mg PO BID [facility] Heparin Sodium (Porcine) (Heparin) 5,000 units SC Q12 [facility] Last Admin: 05/03/17 21:40 Dose: 5,000 units Cefepime HCl 1 gm/ Dextrose 50 mls @ 100 mls/hr IVPB Q8H [facility] Last Admin: 05/04/17 02:00 Dose: 100 mls/hr Sodium Chloride (Sodium Chloride 0.9%) 1,000 mls @ 50 mls/hr IV .Q20H [facility] Last Admin: 05/04/17 05:55 Dose: 50 mls/hr Nitroglycerin/Dextrose (Nitroglycerin 50 Mg/250 Ml D5w) 50 mg in 250 mls @ 7.5 mls/hr IV .Q24H MATTHEW; 25 MCG/MIN PRN Reason: Protocol Last Titration: 05/03/17 22:00 Dose: 0 mcg/min, 0 mls/hr Insulin Human Regular (Novolin R) 0 unit SC ACHS [facility] PRN Reason: Protocol Last Admin: 05/03/17 22:00 Dose: Not Given Metoprolol Tartrate (Lopressor) 100 mg PO BID [facility] Last Admin: 05/03/17 17:40 Dose: 100 mg Rosuvastatin Calcium (Crestor) 20 mg PO HS [facility] Last Admin: 05/03/17 21:40 Dose: 20 mg Saccharomyces Boulardii (Florastor) 250 mg PO BID [facility] Last Admin: 05/03/17 17:40 Dose: 250 mg - Labs Labs: 05/04/17 06:22 05/04/17 06:22 PT 13.5 SECONDS (9.7-12.2) H 04/30/17 22:43 INR 1.2 04/30/17 22:43 APTT 71 SECONDS (21-34) H D 05/01/17 00:26
--- NOTE | 2017-05-04 09:15 | CP.PCM.PN ---
Subjective - Date & Time of Evaluation Date of Evaluation: 05/04/17 Time of Evaluation: 07:30 - Subjective Subjective: Patient was seen and examined at bedside today. Patient is more responsive in comparison to yesterday; is aware of her location, is aware that Dr. Morales is the automatic pilot mechanic seeing her during this hospital. States that coughing induces chest pain. Denies shortness of breath, palpitations, headaches, fevers, chills. Objective - Vital Signs/Intake and Output Vital Signs (last 24 hours): Temp Pulse Resp BP Pulse Ox 98 F 91 H 15 153/81 H 100 05/04/17 08:00 05/04/17 08:01 05/04/17 08:01 05/04/17 08:01 05/04/17 08:01 Intake and Output: 05/04/17 05/04/17 06:59 18:59 Intake Total 615.0 150 Output Total 235 150 Balance 380.0 0 - Medications Medications: Current Medications Aspirin (Aspirin) 325 mg PO DAILY [facility] Last Admin: 05/03/17 09:45 Dose: 325 mg Clopidogrel Bisulfate (Plavix) 75 mg PO DAILY [facility] Last Admin: 05/03/17 09:45 Dose: 75 mg Famotidine (Pepcid) 20 mg PO BID [facility] Heparin Sodium (Porcine) (Heparin) 5,000 units SC Q12 [facility] Last Admin: 05/03/17 21:40 Dose: 5,000 units Cefepime HCl 1 gm/ Dextrose 50 mls @ 100 mls/hr IVPB Q8H [facility] Last Admin: 05/04/17 02:00 Dose: 100 mls/hr Sodium Chloride (Sodium Chloride 0.9%) 1,000 mls @ 50 mls/hr IV .Q20H [facility] Last Admin: 05/04/17 05:55 Dose: 50 mls/hr Nitroglycerin/Dextrose (Nitroglycerin 50 Mg/250 Ml D5w) 50 mg in 250 mls @ 7.5 mls/hr IV .Q24H [facility]; 25 MCG/MIN PRN Reason: Protocol Last Titration: 05/03/17 22:00 Dose: 0 mcg/min, 0 mls/hr Insulin Human Regular (Novolin R) 0 unit SC ACHS [facility] PRN Reason: Protocol Last Admin: 05/03/17 22:00 Dose: Not Given Metoprolol Tartrate (Lopressor) 100 mg PO BID [facility] Last Admin: 05/03/17 17:40 Dose: 100 mg Rosuvastatin Calcium (Crestor) 20 mg PO HS [facility] Last Admin: 05/03/17 21:40 Dose: 20 mg Saccharomyces Boulardii (Florastor) 250 mg PO BID [facility] Last Admin: 05/03/17 17:40 Dose: 250 mg - Labs Labs: 05/04/17 06:22 05/04/17 06:22 PT 13.5 SECONDS (9.7-12.2) H 04/30/17 22:43 INR 1.2 04/30/17 22:43 APTT 71 SECONDS (21-34) H D 05/01/17 00:26 - Head Exam Head Exam: ATRAUMATIC, NORMAL INSPECTION, NORMOCEPHALIC - Eye Exam Eye Exam: EOMI, Normal appearance - ENT Exam ENT Exam: Mucous Membranes Dry - Neck Exam Neck Exam: Normal Inspection - Respiratory Exam Respiratory Exam: Wheezes, NORMAL BREATHING PATTERN - Cardiovascular Exam Cardiovascular Exam: REGULAR RHYTHM, +S1, +S2 - GI/Abdominal Exam GI & Abdominal Exam: Soft. absent: Firm, Rigid - Extremities Exam Extremities Exam: Normal Inspection Additional comments: left leg bandaged s/p foot reconstruction - Neurological Exam Neurological Exam: Alert, Awake - Psychiatric Exam Psychiatric exam: Normal Affect, Normal Mood - Skin Skin Exam: Normal Color, Warm Assessment and Plan - Assessment and Plan (Free Text) Assessment: Patient is a 41 year old female with a history of DM of twenty years as well as hypertension not controlled with medication found to have inferior IN s/p foot reconstruction surgery. Plan: Plan: 1. STEMI - BNP Trend: 05/02 11,000. 05/03 [id number]. 05/04. - IABP removed - BP and HR stable - Continue with Aspirin, Plavix, Metoprolol, Nitroglycerin IV drip, Rosuvastatin - Plan for IVUS/FFR of left main and LAD in 24-48 hours depending on clinical course 2. Tachycardia - Metoprolol increased from 50 mg BID to 100 mg BID 3.CVA - CT head ordered on 05/03 revealed acute infarct of left DISPLAY DESIGNER OUTSIDE and acute infarct changes in right cerebellum - Neurology on board, MRI of brain and MRA of head and neck ordered for further evaluation
[2017-05-04] MEDS: (Novolin R) Insulin Human Regular 100 units/ml vial SC SCH ×4 (09:23→22:00)
[2017-05-04] MEDS: Saccharomyces Boulardi 250 mg Cap PO SCH ×2 (09:25→17:46)
[2017-05-04] MEDS: Nitroglycerin 50mg in D5W 50 MG/250 ML BOTTLE IV SCH (10:00)
--- NOTE | 2017-05-04 11:17 | CP.PCM.PN ---
Subjective - Date & Time of Evaluation Date of Evaluation: 05/04/17 Time of Evaluation: 11:17 - Subjective Subjective: Podiatry progress note for Dr. Chung 41 year old female was seen at bedside today 4 days s/p left foot Charcot reconstruction. She is responsive to questions at time of visit. She admits to mild pain. Denies any n/v/f/c/sob/cp. Objective - Vital Signs/Intake and Output Vital Signs (last 24 hours): Temp Pulse Resp BP Pulse Ox 98 F 91 H 15 153/81 H 100 05/04/17 08:00 05/04/17 08:01 05/04/17 08:01 05/04/17 08:01 05/04/17 08:01 Intake and Output: 05/04/17 05/04/17 06:59 18:59 Intake Total 615.0 200 Output Total 235 375 Balance 380.0 -175 - Medications Medications: Current Medications Aspirin (Aspirin) 325 mg PO DAILY [facility] Last Admin: 05/04/17 09:24 Dose: 325 mg Clopidogrel Bisulfate (Plavix) 75 mg PO DAILY [facility] Last Admin: 05/04/17 09:24 Dose: 75 mg Famotidine (Pepcid) 20 mg PO BID [facility] Last Admin: 05/04/17 09:24 Dose: 20 mg Heparin Sodium (Porcine) (Heparin) 5,000 units SC Q8 [facility] Cefepime HCl 1 gm/ Dextrose 50 mls @ 100 mls/hr IVPB Q8H [facility] Last Admin: 05/04/17 09:25 Dose: 100 mls/hr Sodium Chloride (Sodium Chloride 0.9%) 1,000 mls @ 50 mls/hr IV .Q20H [facility] Last Admin: 05/04/17 05:55 Dose: 50 mls/hr Nitroglycerin/Dextrose (Nitroglycerin 50 Mg/250 Ml D5w) 50 mg in 250 mls @ 7.5 mls/hr IV .Q24H [facility]; 25 MCG/MIN PRN Reason: Protocol Last Titration: 05/03/17 22:00 Dose: 0 mcg/min, 0 mls/hr Insulin Human Regular (Novolin R) 0 unit SC ACHS [facility] PRN Reason: Protocol Last Admin: 05/04/17 09:23 Dose: 2 unit Metoprolol Tartrate (Lopressor) 100 mg PO BID [facility] Last Admin: 05/04/17 09:24 Dose: 100 mg Rosuvastatin Calcium (Crestor) 20 mg PO HS [facility] Last Admin: 05/03/17 21:40 Dose: 20 mg Saccharomyces Boulardii (Florastor) 250 mg PO BID [facility] Last Admin: 05/04/17 09:25 Dose: 250 mg - Labs Labs: 05/04/17 06:22 05/04/17 06:22 PT 13.5 SECONDS (9.7-12.2) H 04/30/17 22:43 INR 1.2 04/30/17 22:43 APTT 71 SECONDS (21-34) H D 05/01/17 00:26 - Constitutional Appears: Non-toxic, No Acute Distress - Extremities Exam Additional comments: Dressing to left lower extremity intact CFT < 3 sec to all digits of left foot No pedal edema noted B/L - Neurological Exam Neurological Exam: Alert, Awake - Psychiatric Exam Psychiatric exam: Normal Affect, Normal Mood Assessment and Plan - Assessment and Plan (Free Text) Assessment: 41 y/o female 4 days s/p left foot Charcot reconstruction. Patient is 4 days s/ p code blue with code heart and STEMI Plan: Patient seen and examined at bedside in ICU Discussed with attendings Dr. Chung and Dr. Thurman Labs and vitals reviewed- afebrile, WBC 12.4 Dressing to LLE to be kept clean, dry and intact Patient to remain non WB to LLE Podiatry will continue to monitor patient daily
--- NOTE | 2017-05-04 11:31 | CARD ---
APPROVED REPORT EKG Measurement Heart [id number] <Conclusion> Age and gender specific ECG analysis Sinus tachycardia Right bundle branch block Inferior infarct, possibly acute ACUTE NM / STEMI Consider right ventricular involvement in acute inferior infarct Abnormal ECG
--- NOTE | 2017-05-04 11:37 | CP.PCM.CON ---
History of Present Illness - History of Present Illness History of Present Illness: 41 year old female with a past medical history of HTN, hyperlipdemia, and DM, who is transferred from [place] to [facility] as code heart for cardiac catheterization. Patient was s/p left charcot joint reconstruction on 04/30/17. In the OR, the patient's tourniquet on lower extremmity was removed, then patient became hypotensive and had blood loss of approximately 750cc. Code blue was called at approximately 15:50. One shock was given, 3L of NS were given, 4 units of PRBC were given (hgb 5.3). ROSC was achieved approximately 30 minutes later. EKG showed acute STEMI. Patient was transferred to [facility] for cardiac catheterization with Dr. Morales. s/p cardiac arrest with hemianopsia - Dr Howell on board will review cultures cont IV antibiotics PMD: MTC PMHx: HTN, HLD, DM, Charcot joint of left LE Surg Hx: reconstruction of left charcot joint; otherwise, unknown FamHx: unknown SocHx: unknown Allergies: NKDA (as per EMR) Medications: See EMR Review of Systems - Review of Systems Systems not reviewed;Unavailable: Altered Mental Status - Constitutional Constitutional: As Per HPI Past Patient History - Tetanus Immunizations Tetanus Immunization: Unknown - Past Medical History & Family History Past Medical History?: Yes - Past Social History Smoking Status: Never Smoked Drugs: Other (unknown) Home Situation {Lives}: With Family - CARDIAC Hx Cardiac Disorders: Yes Hx Hypercholesterolemia: Yes Hx Hypertension: Yes - PULMONARY Hx Respiratory Disorders: No - NEUROLOGICAL Hx Neurological Disorder: No - HEENT Hx HEENT Problems: No - RENAL Other/Comment: RECENT KIDNE INFECTION - ENDOCRINE/METABOLIC Hx Endocrine Disorders: Yes Hx Diabetes Mellitus Type 2: Yes - HEMATOLOGICAL/ONCOLOGICAL Hx Blood Disorders: No - INTEGUMENTARY Hx Dermatological Problems: No - MUSCULOSKELETAL/RHEUMATOLOGICAL Hx Musculoskeletal Disorders: No Hx Falls: No Other/Comment: charcot deformity - GASTROINTESTINAL Hx Gastrointestinal Disorders: No - GENITOURINARY/GYNECOLOGICAL Hx Genitourinary Disorders: No Hx Urinary Tract Infection: Yes - PSYCHIATRIC Hx Psychophysiologic Disorder: No Hx Substance Use: No - SURGICAL HISTORY Hx Surgeries: Yes Hx Cardiac Catheterization: Yes Hx Coronary Stent: Yes Other/Comment: Left foot surgery 02/17/17 - ANESTHESIA Hx Anesthesia: Yes Hx Anesthesia Reactions: No Hx Malignant Hyperthermia: No Meds Allergies/Adverse Reactions: Allergies Allergy/AdvReac Type Severity Reaction Status Date / Time No Known Allergies Allergy Verified 03/21/17 17:00 - Medications Medications: Current Medications Aspirin (Aspirin) 325 mg PO DAILY [facility] Last Admin: 05/04/17 09:24 Dose: 325 mg Clopidogrel Bisulfate (Plavix) 75 mg PO DAILY [facility] Last Admin: 05/04/17 09:24 Dose: 75 mg Famotidine (Pepcid) 20 mg PO BID [facility] Last Admin: 05/04/17 09:24 Dose: 20 mg Heparin Sodium (Porcine) (Heparin) 5,000 units SC Q8 [facility] Cefepime HCl 1 gm/ Dextrose 50 mls @ 100 mls/hr IVPB Q8H [facility] Last Admin: 05/04/17 09:25 Dose: 100 mls/hr Sodium Chloride (Sodium Chloride 0.9%) 1,000 mls @ 50 mls/hr IV .Q20H [facility] Last Admin: 05/04/17 05:55 Dose: 50 mls/hr Nitroglycerin/Dextrose (Nitroglycerin 50 Mg/250 Ml D5w) 50 mg in 250 mls @ 7.5 mls/hr IV .Q24H [facility]; 25 MCG/MIN PRN Reason: Protocol Last Titration: 05/03/17 22:00 Dose: 0 mcg/min, 0 mls/hr Insulin Human Regular (Novolin R) 0 unit SC ACHS [facility] PRN Reason: Protocol Last Admin: 05/04/17 09:23 Dose: 2 unit Metoprolol Tartrate (Lopressor) 100 mg PO BID [facility] Last Admin: 05/04/17 09:24 Dose: 100 mg Rosuvastatin Calcium (Crestor) 20 mg PO [facility] Last Admin: 05/03/17 21:40 Dose: 20 mg Saccharomyces Boulardii (Florastor) 250 mg PO BID [facility] Last Admin: 05/04/17 09:25 Dose: 250 mg Physical Exam - Constitutional Appears: Chronically Ill - Head Exam Head Exam: ATRAUMATIC, NORMOCEPHALIC - Eye Exam Eye Exam: PERRL. absent: Scleral icterus - ENT Exam ENT Exam: Mucous Membranes Dry - Neck Exam Neck exam: Negative for: Lymphadenopathy - Respiratory Exam Respiratory Exam: Decreased Breath Sounds - Cardiovascular Exam Cardiovascular Exam: REGULAR RHYTHM - GI/Abdominal Exam GI & Abdominal Exam: Diminished Bowel Sounds, Soft. absent: Tenderness - Rectal Exam Rectal Exam: Deferred - Exam Exam: NORMAL INSPECTION - Extremities Exam Extremities exam: Positive for: pedal edema, tenderness, pedal pulses present. Negative for: calf tenderness - Back Exam Back exam: absent: CVA tenderness (L), CVA tenderness (R) - Neurological Exam Neurological exam: Alert, Altered, CN II-XII Intact - Psychiatric Exam Psychiatric exam: Depressed - Skin Skin Exam: Dry, Intact Results - Vital Signs Recent Vital Signs: Last Vital Signs Temp 98 F 05/04/17 08:00 Pulse 91 H 05/04/17 08:01 Resp 15 05/04/17 08:01 BP 153/81 H 05/04/17 08:01 Pulse Ox 100 05/04/17 08:01 - Labs Result Diagrams: 05/05/17 06:26 05/05/17 06:23 Labs: Laboratory Results - last 24 hr 05/03/17 05/03/17 05/03/17 06:26 11:49 16:40 WBC RBC Hgb Hct MCV MCH MCHC RDW Plt Count MPV Neut % (Auto) Lymph % (Auto) Geary % (Auto) Eos % (Auto) Baso % (Auto) Neut # Lymph # Geary # Eos # Baso # Sodium Potassium Chloride Carbon Dioxide Anion Gap BUN Creatinine Est GFR ( Amer) Est GFR (Non-Af Amer) POC Glucose (mg/dL) 206 H 230 H Random Glucose Hemoglobin A1c Calcium Phosphorus Magnesium Total Bilirubin AST ALT Alkaline Phosphatase Total Protein Albumin Globulin Albumin/Globulin Ratio Triglycerides Cholesterol LDL Cholesterol Direct HDL Cholesterol Homocysteine Procalcitonin 2.70 H 05/03/17 05/04/17 05/04/17 21:28 06:22 06:22 WBC 12.4 H RBC 3.15 L Hgb 9.1 L Hct 26.8 L MCV 85.0 MCH 28.9 MCHC 34.0 RDW 14.3 Plt Count 167 MPV 7.9 Neut % (Auto) 73.8 Lymph % (Auto) 15.2 L Geary % (Auto) 7.8 Eos % (Auto) 2.9 Baso % (Auto) 0.3 Neut # 9.1 H Lymph # 1.9 Geary # 1.0 H Eos # 0.4 Baso # 0.0 Sodium 134 Potassium 3.5 L Chloride 110 H Carbon Dioxide 19 L Anion Gap 8 L BUN 17 Creatinine 1.0 Est GFR ( Amer) > 60 Est GFR (Non-Af Amer) > 60 POC Glucose (mg/dL) 169 H Random Glucose 149 H Hemoglobin A1c Calcium 7.5 L Phosphorus 2.6 Magnesium 1.7 Total Bilirubin 0.7 AST 38 H D ALT 125 H D Alkaline Phosphatase 90 Total Protein 4.6 L Albumin 2.3 L Globulin 2.3 Albumin/Globulin Ratio 1.0 Triglycerides 197 H Cholesterol 151 LDL Cholesterol Direct 86 HDL Cholesterol 29 L Homocysteine 7.9 Procalcitonin 05/04/17 05/04/17 05/04/17 06:22 08:06 11:25 WBC RBC Hgb Hct MCV MCH MCHC RDW Plt Count MPV Neut % (Auto) Lymph % (Auto) Geary % (Auto) Eos % (Auto) Baso % (Auto) Neut # Lymph # Geary # Eos # Baso # Sodium Potassium Chloride Carbon Dioxide Anion Gap BUN Creatinine Est GFR ( Amer) Est GFR (Non-Af Amer) POC Glucose (mg/dL) 179 H 266 H Random Glucose Hemoglobin A1c 6.4 Calcium Phosphorus Magnesium Total Bilirubin AST ALT Alkaline Phosphatase Total Protein Albumin Globulin Albumin/Globulin Ratio Triglycerides Cholesterol LDL Cholesterol Direct HDL Cholesterol Homocysteine Procalcitonin Assessment & Plan (1) Acute ST elevation myocardial infarction (STEMI) Status: Acute (2) Cardiogenic postoperative shock Status: Acute (3) Sepsis Status: Acute (4) Charcot's joint of foot Status: Chronic (5) Diabetes Status: Chronic (6) HLD (hyperlipidemia) Status: Chronic (7) Arthritis of left ankle Status: Acute (8) DM2 (diabetes mellitus, type 2) Status: Acute (9) HTN (hypertension) Status: Chronic - Assessment and Plan (Free Text) Assessment: CONT IV ANTIBIOTICS - EMPIRIC AWAIT CULTURES
--- NOTE | 2017-05-04 15:22 | CON ---
ATTENDING PHYSICIAN: Son Morales MD. LOCATION: The patient's room number ICU bed 8. REASON FOR THE CONSULTATION: Abnormal CAT scan and change in mental status. 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 Following this, the patient did have abnormal EKG findings and echo findings, transferred to [facility] for further management. The patient was on a balloon pump because of coronary artery disease. The patient also showed significant evidence of ejection fraction of 40%. The patient did have CT of the head following discontinuing the balloon. Does show some radiological evidence of ischemic process. From neurological point of view, I was called in to evaluate her. HISTORY OF PRESENT ILLNESS: Ms. Lianet Lopez is a 41-year-old right-handed female, who carries significant history of diabetic complication of peripheral vascular disease manifesting with Charcot joint disease of her left foot, undergone foot surgery in the OR, the patient did have a cardiopulmonary arrest, transferred over here to [facility] for further management. The patient was found to have a significant coronary artery disease requiring balloon pumping. Following this, the patient did have CT of the head, which showed radiologic evidence of left occipital and right cerebellar stroke process. PAST MEDICAL HISTORY: As stated above. ALLERGIES: NO KNOWN ALLERGIES. MEDICATIONS: Aspirin, Crestor, Florastor, heparin, nitroglycerin, Novolin, Plavix. The patient denies smoking or alcohol use. REVIEW OF SYSTEMS: A 12-point systems had been reviewed. From neuro, abnormal CAT scan. PHYSICAL EXAMINATION: VITAL SIGNS: Blood pressure 143/81, mean arterial pressure of 108, respiratory rate 16, temperature afebrile. NEUROLOGICAL: The patient is examined in the presence of the nurse. The patient is oriented to person and place. She does not know the name of the hospital. She does not know the year. Significant right and left confusion. Speech is fluent. She answers one-step command. Cranial nerve examination: Dense right homonymous hemianopsia. No facial sensory deficit. Extraocular movement restricted and focusing on her left than her right side. Pupil reactive to light. Mild facial asymmetry manifesting as flattening of the right nasolabial fold. Gag is intact. Motor examination: On outstretched hand with eyes closed, mild sensory tremor. Deep tendon reflexes absent. Motor examination showed significant dystrophy and atrophy of both lower extremities with the bandage on her left leg. Deep tendon reflexes are absent. Plantars unable to do on her right side, left side was equivocal response. Sensory examination: Significant sensory motor neuropathy secondary to her underlying disease. WORKUP: CT of the head reviewed by me showed left occipital stroke in [employer] territory and right cerebellar stroke with periventricular ischemic changes. BLOOD WORKUP: WBC 12.4, hemoglobin 9.1, hematocrit 26.8, platelet 167. Sodium 134, potassium 3.5, chloride 110, bicarbonate 19, BUN 70, creatinine 1.0, GFR more than 60, glucose 149, calcium 7.5. CONCLUSION: 1. Ms. Lianet Lopez has been presenting with left homonymous hemianopsia and right cerebellar stroke, particularly involving the posterior cerebral artery distribution consistent with embolic process. This is probably secondary to her anoxic and hypoxic insult from her cardiopulmonary arrest, could be related to cardiac catheterization as well. 2. 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 RECOMMENDATIONS: 1. The patient should have MRI of the brain, MR angiogram to study the extent of her stroke as well as arterial distribution and arterial pathology. 2. Carotid Doppler. 3. Electroencephalogram for her change in mental status to rule out any seizure activities. 4. Diabetic control. 5. Deep venous thrombosis prophylaxis, continue. 6. No anticoagulation is needed because of large vessel disease, risk of hemorrhagic conversion. 7. Continue the present management, control the diabetes. Rome Masterson MD
--- NOTE | 2017-05-04 15:40 | CP.CCUPN ---
<Hoang Hays - Last Filed: 05/04/17 15:35> CCU Subjective - Physician Review Subjective (Free Text): PGY1 ICU Progress Note for Dr. Flores Patient seen and examined at bedside this morning. No acute events over night. Patient is able to follow simple commands. She states she has no pain. Patient has no complaints at this time. CCU Objective - Vital Signs / Intake & Output Vital Signs (Last 4 hours): Vital Signs Temp Pulse Resp BP Pulse Ox 05/04/17 13:02 80 18 154/87 H 100 05/04/17 13:00 80 22 100 05/04/17 12:02 81 21 147/89 100 05/04/17 12:00 97.3 F L 81 100 Intake and Output (Last 8hrs): Intake & Output 05/04/17 05/04/17 05/04/17 06:59 14:59 22:59 Intake Total 300 350 Output Total 115 375 Balance 185 -25 Intake: Intake, IV Amount 300 350 Right Proximal Port 300 350 Femoral Output: Urine 115 375 Urethral (Mosley) 115 375 - Physical Exam Head: Positive for: Atraumatic, Normocephalic Pupils: Positive for: PERRL Mouth: Positive for: Dry Neck: Positive for: Normal Range of Motion Respiratory/Chest: Positive for: Clear to Auscultation. Negative for: Respiratory Distress, Accessory Muscle Use Cardiovascular: Positive for: Regular Rate and Rhythm Abdomen: Positive for: Normal Bowel Sounds. Negative for: Tenderness, Distention, Peritoneal Signs Upper Extremity: Positive for: Normal Inspection. Negative for: Edema Lower Extremity: Positive for: Normal Inspection. Negative for: Edema Skin: Positive for: Warm, Dry Psychiatric: Positive for: Alert, Lethargic. Negative for: Oriented x 3 - Medications Active Medications: Active Medications Generic Name Dose Route Start Last Admin Trade Name Freq PRN Reason Stop Dose Admin Aspirin 325 mg 05/01/17 10:00 05/04/17 09:24 Aspirin PO 325 mg DAILY MATTHEW Administration Clopidogrel Bisulfate 75 mg 05/01/17 10:00 05/04/17 09:24 Plavix PO 75 mg DAILY MATTHEW Administration Famotidine 20 mg 05/04/17 10:00 05/04/17 09:24 Pepcid PO 20 mg BID MATTHEW Administration Heparin Sodium (Porcine) 5,000 units 05/04/17 14:00 05/04/17 13:56 Heparin SC Not Given Q8 MATTHEW Cefepime HCl 1 gm/ Dextrose 50 mls @ 100 mls/hr 05/01/17 10:15 05/04/17 09:25 IVPB 100 mls/hr Q8H MATTHEW Administration Sodium Chloride 1,000 mls @ 50 mls/hr 05/01/17 18:04 05/04/17 05:55 Sodium Chloride 0.9% IV 50 mls/hr .Q20H MATTHEW Administration Nitroglycerin/Dextrose 50 mg in 250 mls @ 7.5 mls/hr 05/03/17 10:00 05/03/17 22:00 Nitroglycerin 50 Mg/250 Ml D5w IV 0 mcg/min .Q24H MATTHEW 0 mls/hr Protocol Titration 25 MCG/MIN Insulin Human Regular 0 unit 05/02/17 16:30 05/04/17 12:54 Novolin R SC 4 unit ACHS MATTHEW Administration Protocol Metoprolol Tartrate 100 mg 05/03/17 18:00 05/04/17 09:24 Lopressor PO 100 mg BID MATTHEW Administration Rosuvastatin Calcium 20 mg 05/01/17 22:00 05/03/17 21:40 Crestor PO 20 mg HS MATTHEW Administration Saccharomyces Boulardii 250 mg 05/03/17 18:00 05/04/17 09:25 Florastor PO 250 mg BID MATTHEW Administration - Patient Studies Lab Studies: Microbiology Studies 05/01/17 10:00 Blood Culture - Preliminary Blood-Venous NO GROWTH AFTER 3 DAYS 05/01/17 Unknown Blood Culture - Final Blood-Venous Corynebacterium Species Gram Stain - Final Lab Studies 05/04/17 05/04/17 05/04/17 Range/Units 11:25 08:06 06:22 WBC (4.8-10.8) K/uL RBC (3.80-5.20) Mil/uL Hgb (11.0-16.0) g/dL Hct (34.0-47.0) % MCV (81.0-99.0) fL MCH (27.0-31.0) pg MCHC (33.0-37.0) g/dL RDW (11.5-14.5) % Plt Count (130-400) K/uL MPV (7.2-11.7) fL Neut % (Auto) (50.0-75.0) % Lymph % (Auto) (20.0-40.0) % [place] % (Auto) (0.0-10.0) % Eos % (Auto) (0.0-4.0) % Baso % (Auto) (0.0-2.0) % Neut # (1.8-7.0) K/uL Lymph # (1.0-4.3) K/uL [place] # (0.0-0.8) K/uL Eos # (0.0-0.7) K/uL Baso # (0.0-0.2) K/uL Sodium (132-148) mmol/L Potassium (3.6-5.2) mmol/L Chloride (98-107) mmol/L Carbon Dioxide (22-30) mmol/L Anion Gap (10-20) BUN (7-17) mg/dL Creatinine (0.7-1.2) mg/dL Est GFR ( Amer) Est GFR (Non-Af Amer) POC Glucose (mg/dL) 266 H 179 H (65-110) mg/dL Random Glucose (65-105) mg/dL Hemoglobin A1c 6.4 (4.2-6.5) % Calcium (8.6-10.4) mg/dl Phosphorus (2.5-4.5) mg/dL Magnesium (1.6-2.3) mg/dL Total Bilirubin (0.2-1.3) mg/dL AST (14-36) U/L ALT (9-52) U/L Alkaline Phosphatase (38-126) U/L Total Protein (6.3-8.3) g/dL Albumin (3.5-5.0) g/dL Globulin (2.2-3.9) gm/dL Albumin/Globulin Ratio (1.0-2.1) Triglycerides (0-149) mg/dL Cholesterol (0-199) mg/dL LDL Cholesterol Direct (0-129) mg/dL HDL Cholesterol (30-70) mg/dL Homocysteine (4.7-12.6) umol/L 05/04/17 05/04/17 05/03/17 Range/Units 06:22 06:22 21:28 WBC 12.4 H (4.8-10.8) K/uL RBC 3.15 L (3.80-5.20) Mil/uL Hgb 9.1 L (11.0-16.0) g/dL Hct 26.8 L (34.0-47.0) % MCV 85.0 (81.0-99.0) fL MCH 28.9 (27.0-31.0) pg MCHC 34.0 (33.0-37.0) g/dL RDW 14.3 (11.5-14.5) % Plt Count 167 (130-400) K/uL MPV 7.9 (7.2-11.7) fL Neut % (Auto) 73.8 (50.0-75.0) % Lymph % (Auto) 15.2 L (20.0-40.0) % [place] % (Auto) 7.8 (0.0-10.0) % Eos % (Auto) 2.9 (0.0-4.0) % Baso % (Auto) 0.3 (0.0-2.0) % Neut # 9.1 H (1.8-7.0) K/uL Lymph # 1.9 (1.0-4.3) K/uL Living[place] # 1.0 H (0.0-0.8) K/uL Eos # 0.4 (0.0-0.7) K/uL Baso # 0.0 (0.0-0.2) K/uL Sodium 134 (132-148) mmol/L Potassium 3.5 L (3.6-5.2) mmol/L Chloride 110 H (98-107) mmol/L Carbon Dioxide 19 L (22-30) mmol/L Anion Gap 8 L (10-20) BUN 17 (7-17) mg/dL Creatinine 1.0 (0.7-1.2) mg/dL Est GFR ( Amer) > 60 Est GFR (Non-Af Amer) > 60 POC Glucose (mg/dL) 169 H (65-110) mg/dL Random Glucose 149 H (65-105) mg/dL Hemoglobin A1c (4.2-6.5) % Calcium 7.5 L (8.6-10.4) mg/dl Phosphorus 2.6 (2.5-4.5) mg/dL Magnesium 1.7 (1.6-2.3) mg/dL Total Bilirubin 0.7 (0.2-1.3) mg/dL AST 38 H D (14-36) U/L ALT 125 H D (9-52) U/L Alkaline Phosphatase 90 (38-126) U/L Total Protein 4.6 L (6.3-8.3) g/dL Albumin 2.3 L (3.5-5.0) g/dL Globulin 2.3 (2.2-3.9) gm/dL Albumin/Globulin Ratio 1.0 (1.0-2.1) Triglycerides 197 H (0-149) mg/dL Cholesterol 151 (0-199) mg/dL LDL Cholesterol Direct 86 (0-129) mg/dL HDL Cholesterol 29 L (30-70) mg/dL Homocysteine 7.9 (4.7-12.6) umol/L // Range/Units 16:40 WBC (4.8-10.8) K/uL RBC (3.80-5.20) Mil/uL Hgb (11.0-16.0) g/dL Hct (34.0-47.0) % MCV (81.0-99.0) fL MCH (27.0-31.0) pg MCHC (33.0-37.0) g/dL RDW (11.5-14.5) % Plt Count (130-400) K/uL MPV (7.2-11.7) fL Neut % (Auto) (50.0-75.0) % Lymph % (Auto) (20.0-40.0) % Living[place] % (Auto) (0.0-10.0) % Eos % (Auto) (0.0-4.0) % Baso % (Auto) (0.0-2.0) % Neut # (1.8-7.0) K/uL Lymph # (1.0-4.3) K/uL Living[place] # (0.0-0.8) K/uL Eos # (0.0-0.7) K/uL Baso # (0.0-0.2) K/uL Sodium (132-148) mmol/L Potassium (3.6-5.2) mmol/L Chloride (98-107) mmol/L Carbon Dioxide (22-30) mmol/L Anion Gap (10-20) BUN (7-17) mg/dL Creatinine (0.7-1.2) mg/dL Est GFR ( Amer) Est GFR (Non-Af Amer) POC Glucose (mg/dL) 230 H (65-110) mg/dL Random Glucose (65-105) mg/dL Hemoglobin A1c (4.2-6.5) % Calcium (8.6-10.4) mg/dl Phosphorus (2.5-4.5) mg/dL Magnesium (1.6-2.3) mg/dL Total Bilirubin (0.2-1.3) mg/dL AST (14-36) U/L ALT (9-52) U/L Alkaline Phosphatase (38-126) U/L Total Protein (6.3-8.3) g/dL Albumin (3.5-5.0) g/dL Globulin (2.2-3.9) gm/dL Albumin/Globulin Ratio (1.0-2.1) Triglycerides (0-149) mg/dL Cholesterol (0-199) mg/dL LDL Cholesterol Direct (0-129) mg/dL HDL Cholesterol (30-70) mg/dL Homocysteine (4.7-12.6) umol/L Laboratory Results - last 24 hr 05/03/17 05/03/17 05/04/17 16:40 21:28 06:22 WBC 12.4 H RBC 3.15 L Hgb 9.1 L Hct 26.8 L MCV 85.0 MCH 28.9 MCHC 34.0 RDW 14.3 Plt Count 167 MPV 7.9 Neut % (Auto) 73.8 Lymph % (Auto) 15.2 L [place] % (Auto) 7.8 Eos % (Auto) 2.9 Baso % (Auto) 0.3 Neut # 9.1 H Lymph # 1.9 Livingston # 1.0 H Eos # 0.4 Baso # 0.0 Sodium Potassium Chloride Carbon Dioxide Anion Gap BUN Creatinine Est GFR ( Amer) Est GFR (Non-Af Amer) POC Glucose (mg/dL) 230 H 169 H Random Glucose Hemoglobin A1c Calcium Phosphorus Magnesium Total Bilirubin AST ALT Alkaline Phosphatase Total Protein Albumin Globulin Albumin/Globulin Ratio Triglycerides Cholesterol LDL Cholesterol Direct HDL Cholesterol Homocysteine 12/12/17 12/12/17 12/12/17 06:22 06:22 08:06 WBC RBC Hgb Hct MCV MCH MCHC RDW Plt Count MPV Neut % (Auto) Lymph % (Auto) Living[place] % (Auto) Eos % (Auto) Baso % (Auto) Neut # Lymph # [place] # Eos # Baso # Sodium 134 Potassium 3.5 L Chloride 110 H Carbon Dioxide 19 L Anion Gap 8 L BUN 17 Creatinine 1.0 Est GFR ( Amer) > 60 Est GFR (Non-Af Amer) > 60 POC Glucose (mg/dL) 179 H Random Glucose 149 H Hemoglobin A1c 6.4 Calcium 7.5 L Phosphorus 2.6 Magnesium 1.7 Total Bilirubin 0.7 AST 38 H D ALT 125 H D Alkaline Phosphatase 90 Total Protein 4.6 L Albumin 2.3 L Globulin 2.3 Albumin/Globulin Ratio 1.0 Triglycerides 197 H Cholesterol 151 LDL Cholesterol Direct 86 HDL Cholesterol 29 L Homocysteine 7.9 05/04/17 11:25 WBC RBC Hgb Hct MCV MCH MCHC RDW Plt Count MPV Neut % (Auto) Lymph % (Auto) Living[place] % (Auto) Eos % (Auto) Baso % (Auto) Neut # Lymph # [place] # Eos # Baso # Sodium Potassium Chloride Carbon Dioxide Anion Gap BUN Creatinine Est GFR ( Amer) Est GFR (Non-Af Amer) POC Glucose (mg/dL) 266 H Random Glucose Hemoglobin A1c Calcium Phosphorus Magnesium Total Bilirubin AST ALT Alkaline Phosphatase Total Protein Albumin Globulin Albumin/Globulin Ratio Triglycerides Cholesterol LDL Cholesterol Direct HDL Cholesterol Homocysteine Fingerstick Blood Sugar Results: 169 Review of Systems - Review of Systems All systems: reviewed and no additional remarkable complaints except (as per HPI ) Critical Care Progress Note - Nutrition Nutrition: Nutrition Category Date Time Status Heart Healthy Diet [DIET] Diets 05/02/17 Dinner Active Assessment/Plan - Assessment and Plan (Free Text) Assessment: 41 year old female s/p cardiac arrest post left foot reconstruction surg complicated with bleeding with acute STEMI, s/p BMS stent, also concern about left main disease has aortic balloon pump, plan for elective recath likely at [facility]. Plan: CV: Cardio consult, Dr. Morales, help appreciated CODE Blue STEMI - s/p BM stent placement Cardiogenic shock - requiring IABP Aspirin 325mg PO daily Plavix 75mg PO daily Metoprolol Tartrate 100 mg PO BID Crestory 20mg PO HS Nitro drip NS @ 50mLs/hr f/u ECHO - awaiting official report f/u cardio recs - plan for elective recath likely at [facility] - IABP removed yesterday Neuro: Neuro consult, Dr. Masterson, help appreciated Head CT 05/04 - Acute infarct left posterior cerebral artery distribution. . There also appears to be acute infarct changes in the right cerebellum. . Minimal chronic periventricular white matter ischemic changes. No acute intracranial hemorrhage. f/u neuro recs - continue anti platelets - not a candidate for anticoag due to hemorrhagic conversion Endo: ISS ID: Infectious Disease consulted, Dr. Dueñas, help appreciated WBC 12.4 Cefepime 1gm IV q8h (started on 05/01) - empiric therapy Urine Culture (05/01) - negative Blood Culture (05/01) - positive for corynebacterium x1 and negative x1 after 3 days Podiatry: Dr. Chung consulted, help appreciated Dr. Thurman consulted, help appreciated s/p Charcot joint surgery Prophylactic Care: Heparin 5000units SC q12h Protonix 40mg PO daily Florastor 250mg PO q12h Case discussed with Dr. Mark Bolton Saúl PGY1 <Jorge Flores S - Last Filed: 05/04/17 17:53> CCU Objective - Vital Signs / Intake & Output Vital Signs (Last 4 hours): Vital Signs Temp Pulse Resp BP Pulse Ox 05/04/17 16:01 81 18 147/86 100 05/04/17 16:00 98 F 81 22 100 05/04/17 15:01 82 22 148/86 100 05/04/17 15:00 80 21 100 05/04/17 14:01 79 22 144/84 100 05/04/17 14:00 79 18 100 Intake and Output (Last 8hrs): Intake & Output 05/04/17 05/04/17 05/04/17 06:59 14:59 22:59 Intake Total 300 400 150 Output Total 115 375 Balance 185 25 150 Intake: Intake, IV Amount 300 400 150 Right Proximal Port 300 400 150 Femoral Output: Urine 115 375 Urethral (Mosley) 115 375 - Medications Active Medications: Active Medications Generic Name Dose Route Start Last Admin Trade Name Freq PRN Reason Stop Dose Admin Aspirin 325 mg 05/01/17 10:00 05/04/17 09:24 Aspirin PO 325 mg DAILY MATTHEW Administration Clopidogrel Bisulfate 75 mg 05/01/17 10:00 05/04/17 09:24 Plavix PO 75 mg DAILY MATTHEW Administration Famotidine 20 mg 05/04/17 10:00 05/04/17 09:24 Pepcid PO 20 mg BID MATTHEW Administration Heparin Sodium (Porcine) 5,000 units 05/04/17 14:00 05/04/17 13:56 Heparin SC Not Given Q8 MATTHEW Cefepime HCl 1 gm/ Dextrose 50 mls @ 100 mls/hr 05/01/17 10:15 05/04/17 17:47 IVPB 100 mls/hr Q8H MATTHEW Administration Sodium Chloride 1,000 mls @ 50 mls/hr 05/01/17 18:04 05/04/17 05:55 Sodium Chloride 0.9% IV 50 mls/hr .Q20H MATTHEW Administration Nitroglycerin/Dextrose 50 mg in 250 mls @ 7.5 mls/hr 05/03/17 10:00 05/03/17 22:00 Nitroglycerin 50 Mg/250 Ml D5w IV 0 mcg/min .Q24H MATTHEW 0 mls/hr Protocol Titration 25 MCG/MIN Insulin Human Regular 0 unit 05/02/17 16:30 05/04/17 17:46 Novolin R SC 4 unit ACHS MATTHEW Administration Protocol Metoprolol Tartrate 100 mg 05/03/17 18:00 05/04/17 17:46 Lopressor PO 100 mg BID MATTHEW Administration Rosuvastatin Calcium 20 mg 05/01/17 22:00 05/03/17 21:40 Crestor PO 20 mg HS MATTHEW Administration Saccharomyces Boulardii 250 mg 05/03/17 18:00 05/04/17 17:46 Florastor PO 250 mg BID MATTHEW Administration - Patient Studies Lab Studies: Microbiology Studies 05/01/17 10:00 Blood Culture - Preliminary Blood-Venous NO GROWTH AFTER 3 DAYS 05/01/17 Unknown Blood Culture - Final Blood-Venous Corynebacterium Species Gram Stain - Final Lab Studies 05/04/17 05/04/17 05/04/17 Range/Units 16:56 16:14 11:25 WBC (4.8-10.8) K/uL RBC (3.80-5.20) Mil/uL Hgb (11.0-16.0) g/dL Hct (34.0-47.0) % MCV (81.0-99.0) fL MCH (27.0-31.0) pg MCHC (33.0-37.0) g/dL RDW (11.5-14.5) % Plt Count (130-400) K/uL MPV (7.2-11.7) fL Neut % (Auto) (50.0-75.0) % Lymph % (Auto) (20.0-40.0) % [place] % (Auto) (0.0-10.0) % Eos % (Auto) (0.0-4.0) % Baso % (Auto) (0.0-2.0) % Neut # (1.8-7.0) K/uL Lymph # (1.0-4.3) K/uL [place] # (0.0-0.8) K/uL Eos # (0.0-0.7) K/uL Baso # (0.0-0.2) K/uL Sodium (132-148) mmol/L Potassium (3.6-5.2) mmol/L Chloride (98-107) mmol/L Carbon Dioxide (22-30) mmol/L Anion Gap (10-20) BUN (7-17) mg/dL Creatinine (0.7-1.2) mg/dL Est GFR ( Amer) Est GFR (Non-Af Amer) POC Glucose (mg/dL) 273 H 266 H (65-110) mg/dL Random Glucose (65-105) mg/dL Hemoglobin A1c (4.2-6.5) % Calcium (8.6-10.4) mg/dl Phosphorus (2.5-4.5) mg/dL Magnesium (1.6-2.3) mg/dL Total Bilirubin (0.2-1.3) mg/dL AST (14-36) U/L ALT (9-52) U/L Alkaline Phosphatase (38-126) U/L NT-Pro-B Natriuret Pep 79150 H (0-450) pg/mL Total Protein (6.3-8.3) g/dL Albumin (3.5-5.0) g/dL Globulin (2.2-3.9) gm/dL Albumin/Globulin Ratio (1.0-2.1) Triglycerides (0-149) mg/dL Cholesterol (0-199) mg/dL LDL Cholesterol Direct (0-129) mg/dL HDL Cholesterol (30-70) mg/dL Homocysteine (4.7-12.6) umol/L 05/04/17 05/04/17 05/04/17 Range/Units 08:06 06:22 06:22 WBC (4.8-10.8) K/uL RBC (3.80-5.20) Mil/uL Hgb (11.0-16.0) g/dL Hct (34.0-47.0) % MCV (81.0-99.0) fL MCH (27.0-31.0) pg MCHC (33.0-37.0) g/dL RDW (11.5-14.5) % Plt Count (130-400) K/uL MPV (7.2-11.7) fL Neut % (Auto) (50.0-75.0) % Lymph % (Auto) (20.0-40.0) % [place] % (Auto) (0.0-10.0) % Eos % (Auto) (0.0-4.0) % Baso % (Auto) (0.0-2.0) % Neut # (1.8-7.0) K/uL Lymph # (1.0-4.3) K/uL Living[place] # (0.0-0.8) K/uL Eos # (0.0-0.7) K/uL Baso # (0.0-0.2) K/uL Sodium 134 (132-148) mmol/L Potassium 3.5 L (3.6-5.2) mmol/L Chloride 110 H (98-107) mmol/L Carbon Dioxide 19 L (22-30) mmol/L Anion Gap 8 L (10-20) BUN 17 (7-17) mg/dL Creatinine 1.0 (0.7-1.2) mg/dL Est GFR ( Amer) > 60 Est GFR (Non-Af Amer) > 60 POC Glucose (mg/dL) 179 H (65-110) mg/dL Random Glucose 149 H (65-105) mg/dL Hemoglobin A1c 6.4 (4.2-6.5) % Calcium 7.5 L (8.6-10.4) mg/dl Phosphorus 2.6 (2.5-4.5) mg/dL Magnesium 1.7 (1.6-2.3) mg/dL Total Bilirubin 0.7 (0.2-1.3) mg/dL AST 38 H D (14-36) U/L ALT 125 H D (9-52) U/L Alkaline Phosphatase 90 (38-126) U/L NT-Pro-B Natriuret Pep (0-450) pg/mL Total Protein 4.6 L (6.3-8.3) g/dL Albumin 2.3 L (3.5-5.0) g/dL Globulin 2.3 (2.2-3.9) gm/dL Albumin/Globulin Ratio 1.0 (1.0-2.1) Triglycerides 197 H (0-149) mg/dL Cholesterol 151 (0-199) mg/dL LDL Cholesterol Direct 86 (0-129) mg/dL HDL Cholesterol 29 L (30-70) mg/dL Homocysteine 7.9 (4.7-12.6) umol/L 05/04/17 05/03/17 Range/Units 06:22 21:28 WBC 12.4 H (4.8-10.8) K/uL RBC 3.15 L (3.80-5.20) Mil/uL Hgb 9.1 L (11.0-16.0) g/dL Hct 26.8 L (34.0-47.0) % MCV 85.0 (81.0-99.0) fL MCH 28.9 (27.0-31.0) pg MCHC 34.0 (33.0-37.0) g/dL RDW 14.3 (11.5-14.5) % Plt Count 167 (130-400) K/uL MPV 7.9 (7.2-11.7) fL Neut % (Auto) 73.8 (50.0-75.0) % Lymph % (Auto) 15.2 L (20.0-40.0) % [place] % (Auto) 7.8 (0.0-10.0) % Eos % (Auto) 2.9 (0.0-4.0) % Baso % (Auto) 0.3 (0.0-2.0) % Neut # 9.1 H (1.8-7.0) K/uL Lymph # 1.9 (1.0-4.3) K/uL Livingston # 1.0 H (0.0-0.8) K/uL Eos # 0.4 (0.0-0.7) K/uL Baso # 0.0 (0.0-0.2) K/uL Sodium (132-148) mmol/L Potassium (3.6-5.2) mmol/L Chloride (98-107) mmol/L Carbon Dioxide (22-30) mmol/L Anion Gap (10-20) BUN (7-17) mg/dL Creatinine (0.7-1.2) mg/dL Est GFR ( Amer) Est GFR (Non-Af Amer) POC Glucose (mg/dL) 169 H (65-110) mg/dL Random Glucose (65-105) mg/dL Hemoglobin A1c (4.2-6.5) % Calcium (8.6-10.4) mg/dl Phosphorus (2.5-4.5) mg/dL Magnesium (1.6-2.3) mg/dL Total Bilirubin (0.2-1.3) mg/dL AST (14-36) U/L ALT (9-52) U/L Alkaline Phosphatase (38-126) U/L NT-Pro-B Natriuret Pep (0-450) pg/mL Total Protein (6.3-8.3) g/dL Albumin (3.5-5.0) g/dL Globulin (2.2-3.9) gm/dL Albumin/Globulin Ratio (1.0-2.1) Triglycerides (0-149) mg/dL Cholesterol (0-199) mg/dL LDL Cholesterol Direct (0-129) mg/dL HDL Cholesterol (30-70) mg/dL Homocysteine (4.7-12.6) umol/L Laboratory Results - last 24 hr 05/03/17 05/04/17 05/04/17 21:28 06:22 06:22 WBC 12.4 H RBC 3.15 L Hgb 9.1 L Hct 26.8 L MCV 85.0 MCH 28.9 MCHC 34.0 RDW 14.3 Plt Count 167 MPV 7.9 Neut % (Auto) 73.8 Lymph % (Auto) 15.2 L [place] % (Auto) 7.8 Eos % (Auto) 2.9 Baso % (Auto) 0.3 Neut # 9.1 H Lymph # 1.9 Livingston # 1.0 H Eos # 0.4 Baso # 0.0 Sodium 134 Potassium 3.5 L Chloride 110 H Carbon Dioxide 19 L Anion Gap 8 L BUN 17 Creatinine 1.0 Est GFR ( Amer) > 60 Est GFR (Non-Af Amer) > 60 POC Glucose (mg/dL) 169 H Random Glucose 149 H Hemoglobin A1c Calcium 7.5 L Phosphorus 2.6 Magnesium 1.7 Total Bilirubin 0.7 AST 38 H D ALT 125 H D Alkaline Phosphatase 90 NT-Pro-B Natriuret Pep Total Protein 4.6 L Albumin 2.3 L Globulin 2.3 Albumin/Globulin Ratio 1.0 Triglycerides 197 H Cholesterol 151 LDL Cholesterol Direct 86 HDL Cholesterol 29 L Homocysteine 7.9 05/04/17 05/04/17 05/04/17 06:22 08:06 11:25 WBC RBC Hgb Hct MCV MCH MCHC RDW Plt Count MPV Neut % (Auto) Lymph % (Auto) Living[place] % (Auto) Eos % (Auto) Baso % (Auto) Neut # Lymph # [place] # Eos # Baso # Sodium Potassium Chloride Carbon Dioxide Anion Gap BUN Creatinine Est GFR ( Amer) Est GFR (Non-Af Amer) POC Glucose (mg/dL) 179 H 266 H Random Glucose Hemoglobin A1c 6.4 Calcium Phosphorus Magnesium Total Bilirubin AST ALT Alkaline Phosphatase NT-Pro-B Natriuret Pep Total Protein Albumin Globulin Albumin/Globulin Ratio Triglycerides Cholesterol LDL Cholesterol Direct HDL Cholesterol Homocysteine 05/04/17 05/04/17 16:14 16:56 WBC RBC Hgb Hct MCV MCH MCHC RDW Plt Count MPV Neut % (Auto) Lymph % (Auto) [place] % (Auto) Eos % (Auto) Baso % (Auto) Neut # Lymph # [place] # Eos # Baso # Sodium Potassium Chloride Carbon Dioxide Anion Gap BUN Creatinine Est GFR ( Amer) Est GFR (Non-Af Amer) POC Glucose (mg/dL) 273 H Random Glucose Hemoglobin A1c Calcium Phosphorus Magnesium Total Bilirubin AST ALT Alkaline Phosphatase NT-Pro-B Natriuret Pep 04102 H Total Protein Albumin Globulin Albumin/Globulin Ratio Triglycerides Cholesterol LDL Cholesterol Direct HDL Cholesterol Homocysteine Critical Care Progress Note - Nutrition Nutrition: Nutrition Category Date Time Status Heart Healthy Diet [DIET] Diets 05/02/17 Dinner Active Attending/Attestation - Attestation I have personally seen and examined this patient.: Yes I have fully participated in the care of the patient.: Yes I have reviewed all pertinent clinical information: Yes Notes (Text): 05/04/17 17:52 patient seen and examined in the intensive care unit. Case discussed with house staff in the morning around Patient seen by neurology Continue Plavix, aspirin Cardiology follow-up Patient alert oriented
[2017-05-05] MEDS: Sodium Chloride 0.9% 1,000 ML IV SCH (01:15)
[2017-05-05 06:33] LABS: BASO % 0.4 % (0.0-2.0); EOS # 0.3 K/uL (0.0-0.7); EOS % 3.1 % (0.0-4.0); HEMATOCRIT 24.6 % (34.0-47.0); LYMPH # 1.4 K/uL (1.0-4.3); LYMPH % 13.2 % (20.0-40.0); MEAN CORPUSCULAR HGB CONC 34.2 g/dL (33.0-37.0); MEAN PLATELET VOLUME 7.8 fL (7.2-11.7); MONO # 1.1 K/uL (0.0-0.8); MONO % 9.7 % (0.0-10.0); RED CELL DISTRIBUTION WIDTH 14.3 % (11.5-14.5); WHITE BLOOD COUNT 10.9 K/uL (4.8-10.8)
[2017-05-05 06:49] LABS: ALB/GLOB RATIO 0.9 (1.0-2.1); BILIRUBIN,TOTAL 0.5 mg/dL (0.2-1.3); CALCIUM 7.5 mg/dl (8.6-10.4); MAGNESIUM 1.6 mg/dL (1.6-2.3); POTASSIUM 3.6 mmol/L (3.6-5.2); TOTAL PROTEIN 4.6 g/dL (6.3-8.3)
[2017-05-05] MEDS ORDERED: Potassium & Sodium Phosphate PO ONE (08:00)
--- NOTE | 2017-05-05 08:43 | CP.PCM.PN ---
Subjective - Date & Time of Evaluation Date of Evaluation: 05/05/17 Time of Evaluation: 07:30 - Subjective Subjective: Cardiology Progress note for Dr. Morales Patient seen and examined at bedside. Energy level seems to have increased from yesterday; patient is more talkative and responsive, appears less fatigued. Paitent instructed to continue with incentive spirometer. Admits to chest pain with coughing. Denies chest pain, shortness of breath, palpitations, lower extremity pain. Objective - Vital Signs/Intake and Output Vital Signs (last 24 hours): Temp Pulse Resp BP Pulse Ox 98.6 F 83 17 129/79 100 05/05/17 08:00 05/05/17 08:01 05/05/17 08:01 05/05/17 08:01 05/05/17 08:01 Intake and Output: 05/05/17 05/05/17 06:59 18:59 Intake Total 820 100 Output Total 1150 Balance -330 100 - Medications Medications: Current Medications Aspirin (Aspirin) 325 mg PO DAILY [facility] Last Admin: 05/04/17 09:24 Dose: 325 mg Clopidogrel Bisulfate (Plavix) 75 mg PO DAILY [facility] Last Admin: 05/04/17 09:24 Dose: 75 mg Famotidine (Pepcid) 20 mg PO BID [facility] Last Admin: 05/04/17 09:24 Dose: 20 mg Heparin Sodium (Porcine) (Heparin) 5,000 units SC Q8 [facility] Last Admin: 05/05/17 06:15 Dose: 5,000 units Cefepime HCl 1 gm/ Dextrose 50 mls @ 100 mls/hr IVPB Q8H [facility] Last Admin: 05/05/17 01:15 Dose: 100 mls/hr Sodium Chloride (Sodium Chloride 0.9%) 1,000 mls @ 50 mls/hr IV .Q20H [facility] Last Admin: 05/05/17 01:15 Dose: 50 mls/hr Nitroglycerin/Dextrose (Nitroglycerin 50 Mg/250 Ml D5w) 50 mg in 250 mls @ 7.5 mls/hr IV .Q24H [facility]; 25 MCG/MIN PRN Reason: Protocol Last Admin: 05/04/17 10:00 Dose: Not Given Insulin Human Regular (Novolin R) 0 unit SC ACHS [facility] PRN Reason: Protocol Last Admin: 05/04/17 22:00 Dose: Not Given Metoprolol Tartrate (Lopressor) 100 mg PO BID [facility] Last Admin: 05/04/17 17:46 Dose: 100 mg Rosuvastatin Calcium (Crestor) 20 mg PO HS [facility] Last Admin: 05/04/17 22:35 Dose: 20 mg Saccharomyces Boulardii (Florastor) 250 mg PO BID [facility] Last Admin: 05/04/17 17:46 Dose: 250 mg - Labs Labs: 05/05/17 06:26 05/05/17 06:23 PT 13.5 SECONDS (9.7-12.2) H 04/30/17 22:43 INR 1.2 04/30/17 22:43 APTT 71 SECONDS (21-34) H D 05/01/17 00:26 - Constitutional Appears: No Acute Distress - Head Exam Head Exam: ATRAUMATIC, NORMAL INSPECTION, NORMOCEPHALIC - Eye Exam Eye Exam: EOMI - ENT Exam ENT Exam: Mucous Membranes Moist - Neck Exam Neck Exam: Normal Inspection - Respiratory Exam Respiratory Exam: Clear to Ausculation Bilateral, NORMAL BREATHING PATTERN. absent: Wheezes - Cardiovascular Exam Cardiovascular Exam: REGULAR RHYTHM, +S1, +S2 - GI/Abdominal Exam GI & Abdominal Exam: Soft. absent: Distended, Firm, Guarding, Rigid - Extremities Exam Extremities Exam: absent: Calf Tenderness, Pedal Edema - Neurological Exam Neurological Exam: Alert (Oriented x 2), Awake Additional comments: Patient noted to have right sided hemianopsia which agrees with Left CLIENT ANALYST infarct ; unable to draw right side of clock, did not notice incentive spirometer which was on table on right side of patient - Psychiatric Exam Psychiatric exam: Normal Affect, Normal Mood - Skin Skin Exam: Normal Color, Warm Assessment and Plan - Assessment and Plan (Free Text) Assessment: Patient is a 41 year old female with a history of DM of twenty years as well as hypertension not controlled with medication found to have inferior FL s/p foot reconstruction surgery. Plan: Plan: 1. STEMI - IABP removed - BNP Trend: 05/02 11,000. 05/03 14615. 05/04. 05/05 [id number]. - BP and HR stable - cont DAPT, BB, statins - Added Losartan 50 qD and Isosorbide Dinitrate 20 mg TID - Will check BNP in morning and decide on transfer to [facility] - Plan for IVUS/FFR of left main and LAD in 24-48 hours depending on clinical course 2. Tachycardia - Metoprolol increased from 50 mg BID to 100 mg BID 3.Acute Left CLIENT ANALYST and Right cerebellar Infarct - CT head ordered on 05/03 revealed acute infarct of left CLIENT ANALYST and acute infarct changes in right cerebellum - MRI head ordered was originally not done due to coronary stenting however, XIENCE coronary drug eluting stent was placed and patient is safe to undergo MRI. This is supported by reference: Jose BERTRAND, Laura K, Devendra M, et al. Long- term safety of cardiac magnetic resonance imaging performed in the first few days after bare-metal stent implantation. J Magn Reson Imaging. 2006; 24: 1056- 61.
--- NOTE | 2017-05-05 09:22 | CP.PCM.PN ---
Subjective - Date & Time of Evaluation Date of Evaluation: 05/05/17 Time of Evaluation: 09:00 - Subjective Subjective: Hospitalist Progress Note Patient was seen and examined at 9:00 AM 05/05/17 ICU Bed 11. 41 year old female who was transferred to [facility] from [facility] on S/P Code Blue/STEMI after Left Charcoat Joint Reconstruction on 05/10/17. She was extubated on 05/01/17 and had IntraAortic Balloon Pump which was removed on 05/03/17. CT Head 05/03/17 revealed acute infarct left posterior cerebral artery distribution, acute infarcts right cerebellum, chronic perventricular white matter changes, no hemorrhage noted. Neurologist Dr. Masterson is following. At present Dr. Morales's Cardiology Team's plan for the findings on Cardiac Catheterization on 04/30/17 is for IVUS/FFR of left main and LAD in 24-48 hours depending on clinical course. Currently upon FULL ROS: She has not moved her bowels in 2 days Can not feel sensation in her Left Foot (this is not new) NO chest pain NO SOB NO abdominal pain NO n/v NO headache NO lightheadedness NO new changes in vision NO new changes in hearing Exam: General: Patient is awake, she knows where she is, knew the month and the year but could not provide the date although she was asked to remember it yesterday. She was again provided with today's date and day. She believed the president was Deleon. She was told that it was Trump. I went over her diagnoses HEENT: NCA, EOMI, PERRLA, NO pharyngeal erythema/exudate, NO cervical lymphadenopathy, NO thyromegaly, Dry Nasal Turbinates and Oral mucosa Cardio: NS1 and NS2, NO M/R/G Resp: CTA B/L, NO R/R/W GI: BSx4, Soft, NT, ND, NO guarding/rebound tenderness, NO HSM Ext: Left Lower Leg in [place] Bandages and sensation to the exposed foot is NOT intact to my touch on either the dorsal/pedal surface however patient can move the toes. Pulses are strong and equal, Capillary Refill is 2 seconds, NO edema Neuro: CN II through XII are grossly intact Assessment and Plan (1) Cardiogenic postoperative shock Assessment & Plan: Prior [facility] Admission in separate EMR chart Information based on [facility] ICU Note 04/30/17: Following surgery, patient was called for Code Blue, underwent CPR/ACLS.for noted hypotension and bradycardia. Follow-up EKG noted for marked ST elevations in the inferior leads, V1-V3 which was different from preoperative EKG 04/23/17. Patient's hgb post-op 5.5 and ordered for 4 units of PRBC which were given. Elevated potassium treated with bicarbonate, calcium, insulin with already elevated sugars. Patient given total 3 Liters crystalloid infused and saline infusions in [facility] ICU.Levophed infusion was started at the end of the Code to maintain BP (and requirements lessened to approx 2.5 mcg/min before transfer to [facility] for emergent C-Cath). Bilingual Account Manager notified of acute STEMI and case discussed with Dr. Morales. Bedside ECHO performed by Dr. Morales showed inferior hypokinesis and LVEF estimated at approx 30%. With some awakening and improvement in mental status with eye opening to name calling, decision made to transfer for emergent C-Cath. Patient kept on MV support, as she had been intubated for GA in the OR with 7.0 mm ETT, and kept on AC mode, rate set at 12, breathing at 24, TV 400ml, and fiO2 reduced to 50 % with SPO2 maintained at 100%. Patient transferred to [facility] as Code Heart 04/30 following events noted above. Patient underwent cardiac cath 04/30/17 which showed LVER at 40% with inferior hypokinesis, Right Coronary is occluded with diffuse Left Anterior Descedning and Circumflex with moderate diffuse Left Main disease Currently on Intra-Aortic Balloon Pump Extubated 05/01/17 F/U repeat 2D Echocardiogram 05/03/17 Interventional cardiology: Dr. Morales on the case. Metoprolol 100 mg PO BID Crestor 20mg POqHS Aspirin 325mg PO daily Plavix 75mg PO daily Status: Acute (2). CVA CT Head 05/03/17 revealed acute infarct left posterior cerebral artery distribution, acute infarcts right cerebellum, chronic perventricular white matter changes, no hemorrhage noted. Spoke with Neurology Dr. Masterson 05/04/17 to confirm anticoagulation: continue ASA , Plavix, Heparin for DVT Prophylaxis F/U the following studies ordered by Neurology: MRA Head and Neck MRI Brain with and without contrast Bilateral Carotid U/S was normal Status: Acute (3) Acute ST elevation myocardial infarction (STEMI) Assessment & Plan: Please see Assessment and Plan #1 Interventional cardiology: Dr. Morales on the case. Metoprolol 100 mg PO BID Crestor 20mg POqHS Aspirin 325mg PO daily Plavix 75mg PO daily Status: Acute (4) Sepsis Assessment & Plan: Cefepime 1gm IVPB Q8H (active since 05/01/17) Vancomycin 1 gram IVPB (stat given 05/01/17) Chest X Ray 05/01/17 showed NO evidence of active disease Urine Culture 05/01/17 shows NO growth Blood Culture 05/01/17 shows Carynebacterium however sensitivities performed. Azithromycin 500 mg IV Q12H started for now and will await further recommendations from ID Dr. Dueñas concerning treatment for this. MRSA 04/30/17 is NOT detected Status: Acute (5) Charcot's joint of foot Assessment & Plan: 04/30/17 Charcot Foot reconstruction of Left at [facility] ; please note details in [facility] hospitalization Post op note: Left foot medial column fusion, bone excision, PT tendon transfer , gastrocnemius recession, bone marrow aspiration. I spoke with Podiatry Resident Dr. Colby 05/03/17, and Dr. Earnestine Thurman who performed Charcot Foot reconstruction does not come to [facility]. Dr. Colby will speak with Senior Data Scientist Dr. Chung to see if she will be following patient while she is here at [facility] [place]. Patient for possible splinting of the Left Foot NO weight bearing and this was discussed with PT on 05/04/17 Status: Chronic (6) HLD (hyperlipidemia) Assessment & Plan: Lipid panel: 03/19/17: T, chol: 284, LDL:175, HDL: 48 Crestor 20mg POHs Status: Chronic (7) Acute Ischemic heart disease with Elevated ProBNP Assessment & Plan: Risk factors: Diabetes, hypertension, lipid disorder, post-operative surgery Currently with IABP Cardiac Catheterization 04/30/17 which showed LVER at 40% with inferior hypokinesis, Right Coronary is occluded with diffuse Left Anterior Descedning and Circumflex with moderate diffuse Left Main disease Interventional cardiology (Dr. Morales): At present Dr. Morales's Cardiology Team's plan for the findings on Cardiac Catheterization on 04/30/17 is for IVUS/FFR of left main and LAD in 24-48 hours depending on clinical course. Aspirin 325mg Po daily Plavix 75mg PO daily Metoprolol 100 mg PO BID Crestor 20mg POqHS NS 50cc/hr Status: Chronic (8) HTN (hypertension) Status: Chronic Metoprolol 100 mg PO TID Nitroglycerin 25 mcg/min (9) Diabetes Assessment & Plan: Hgba1c 05/01/17: 6.4 Lipid panel 03/19/17: T, chol: 284, LDL:175, HDL: 48 RISS Heart Healthy Moderate Carbohydrate Consistent Diet [id number] Status: Chronic (10) Anemia Likely secondary to Chronic Disease HgB/Hct currently at 8.4/24.6 and declining F/U Stool Occult Blood Status: Chronic (11) Elevated LFTs Likely secondary to the Cardiogenic Shock Trending down Status: Acute (12) Prophylactic measure Assessment & Plan: Heparin 5000 units [id number] has been discontinued considering findings on CT Head 05/03/17. SCD to the Right leg only Protonix 40mg PO daily Florastor 250 mg PO BID NS 50 ml/hr Status: Acute Objective - Vital Signs/Intake and Output Vital Signs (last 24 hours): Temp Pulse Resp BP Pulse Ox 98.6 F 83 17 129/79 100 05/05/17 08:00 05/05/17 08:01 05/05/17 08:01 05/05/17 08:01 05/05/17 08:01 Intake and Output: 05/05/17 05/05/17 06:59 18:59 Intake Total 820 100 Output Total 1150 Balance -330 100 - Medications Medications: Current Medications Aspirin (Aspirin) 325 mg PO DAILY [facility] Last Admin: 05/04/17 09:24 Dose: 325 mg Clopidogrel Bisulfate (Plavix) 75 mg PO DAILY [facility] Last Admin: 05/04/17 09:24 Dose: 75 mg Famotidine (Pepcid) 20 mg PO BID [facility] Last Admin: 05/04/17 09:24 Dose: 20 mg Heparin Sodium (Porcine) (Heparin) 5,000 units SC Q8 [facility] Last Admin: 05/05/17 06:15 Dose: 5,000 units Sodium Chloride (Sodium Chloride 0.9%) 1,000 mls @ 50 mls/hr IV .Q20H [facility] Last Admin: 05/05/17 01:15 Dose: 50 mls/hr Nitroglycerin/Dextrose (Nitroglycerin 50 Mg/250 Ml D5w) 50 mg in 250 mls @ 7.5 mls/hr IV .Q24H [facility]; 25 MCG/MIN PRN Reason: Protocol Last Admin: 05/04/17 10:00 Dose: Not Given Azithromycin 500 mg/ Sodium (Chloride) 250 mls @ 250 mls/hr IVPB Q12 [facility] Insulin Human Regular (Novolin R) 0 unit SC ACHS [facility] PRN Reason: Protocol Last Admin: 05/04/17 22:00 Dose: Not Given Metoprolol Tartrate (Lopressor) 100 mg PO BID [facility] Last Admin: 05/04/17 17:46 Dose: 100 mg Rosuvastatin Calcium (Crestor) 20 mg PO HS [facility] Last Admin: 05/04/17 22:35 Dose: 20 mg Saccharomyces Boulardii (Florastor) 250 mg PO BID [facility] Last Admin: 05/04/17 17:46 Dose: 250 mg - Labs Labs: 05/05/17 06:26 05/05/17 06:23 PT 13.5 SECONDS (9.7-12.2) H 04/30/17 22:43 INR 1.2 04/30/17 22:43 APTT 71 SECONDS (21-34) H D 05/01/17 00:26
[2017-05-05] MEDS: (Novolin R) Insulin Human Regular 100 units/ml vial SC SCH ×4 (09:33→23:00)
[2017-05-05] MEDS: Saccharomyces Boulardi 250 mg Cap PO SCH ×2 (09:35→20:00)
--- NOTE | 2017-05-05 09:56 | PN ---
DATE: 05/05/2017 NEUROLOGIC PROBLEM: Possible embolic stoke in the posterior cerebral artery distribution. PHYSICAL EXAMINATION: VITAL SIGNS: Blood pressure 162/85, mean arterial pressure of 108, respiratory rate 16, temperature afebrile, with pulse of 76 and irregular. NEUROLOGICAL: Patient is more awake and alert. Mentation is normal. The examination unchanged compared with the previous examination of right homonymous hemianopia with dysmetria on right more than her left side. LABORATORY DATA: Her workup as recommended is still in progress. ASSESSMENT AND PLAN: Continue the present management as I discussed with the primary care physician. Patient is not a good candidate for anticoagulation for now. Patient will follow up closely with you. Rome Masterson MD
[2017-05-05] MEDS ORDERED: Azithromycin 500 MG in Sodium Chloride 0.9% 250 ML IVPB SCH (10:00)
--- NOTE | 2017-05-05 10:57 | VASCLAB ---
PROCEDURE: HISTORY: Head ache COMPARISON: None available. TECHNIQUE: Grayscale and duplex Doppler evaluation of the cervical carotid and vertebral arteries were performed. The common carotid, carotid bifurcations and cervical Internal Carotid Artery (ICA) and proximal External Carotid Artery (ECA) were evaluated. The vertebral arteries were evaluated for gross patency and flow direction. Report prepared by Arnaud Vaughan, BS, RVT FINDINGS: RIGHT CAROTID ARTERIES: 1. Common Carotid Artery: No significant focal plaque formation of the right common carotid artery. Maximum Peak Systolic velocity: 70 cm/sec: End-diastolic velocity 20 cm/sec. 2. Carotid Bifurcation: plaque formation. Maximum Peak Systolic velocity: 76 cm/sec: End-diastolic velocity 20 cm/sec. 3. Internal Carotid Artery: Plaque description: 3.1. Proximal Segment: Peak systolic velocity 74 cm/sec: End-diastolic velocity 29 cm/sec - % stenosis 0-15% 3.2. Middle Segment: Peak systolic velocity 74 cm/sec: End-diastolic velocity 33 cm/sec - % stenosis 0-15% 3.3. Distal Segment: Peak systolic velocity 52 cm/sec: End-diastolic velocity 15 cm/sec - % stenosis 0-15% 4. External Carotid Artery: No significant focal plaque formation. Peak systolic velocity 137 cm/sec 5. ICA/CCA Ratio: 1.1 LEFT CAROTID ARTERIES: 1. Common Carotid Artery: No significant focal plaque formation of the left common carotid artery. Maximum Peak Systolic velocity: 75 cm/sec: End-diastolic velocity 21 cm/sec. 2. Carotid Bifurcation: plaque formation. Maximum Peak Systolic velocity: 81 cm/sec: End-diastolic velocity 21 cm/sec. 3. Internal Carotid Artery: Plaque description: 3.1. Proximal Segment: Peak systolic velocity 92 cm/sec: End-diastolic velocity 33 cm/sec - % stenosis 0-15% 3.2. Middle Segment: Peak systolic velocity 53 cm/sec: End-diastolic velocity 17 cm/sec - % stenosis 0-15% 3.3. Distal Segment: Peak systolic velocity 64 cm/sec: End-diastolic velocity 32 cm/sec - % stenosis 0-15% 4. External Carotid Artery: No significant focal plaque formation. Peak systolic velocity 125 cm/sec 5. ICA/CCA Ratio: 1.2 VERTEBRAL ARTERIES: 1. Right Vertebral Artery: The right vertebral artery flow direction is antegrade. 2. Left Vertebral Artery: The left vertebral artery flow direction is antegrade. OTHER FINDINGS: 1. Right Brachial Blood pressure: 144 mmHg. 2. Left Brachial Blood pressure: mmHg. IMPRESSION: RIGHT: Duplex scan does not suggest hemodynamically significant stenosis of the right extracranial carotid arteries. LEFT: Duplex scan does not suggest hemodynamically significant stenosis of the left extracranial carotid arteries.
[2017-05-05] MEDS: Azithromycin 500 MG in Sodium Chloride 0.9% 250 ML IVPB SCH ×2 (11:11→23:00)
--- NOTE | 2017-05-05 11:31 | RAD ---
HISTORY: elevated BNP COMPARISON: Comparison chest 05/01/2017. FINDINGS: LUNGS: Poor inspiration with low lung volumes, crowded bronchovascular markings and mild bibasilar atelectasis PLEURA: No significant pleural effusion identified, no pneumothorax apparent. CARDIOVASCULAR: Heart appears enlarged which may also be due to poor inspiration in AP position. OSSEOUS STRUCTURES: No significant abnormalities. VISUALIZED UPPER ABDOMEN: Normal. OTHER FINDINGS: None. IMPRESSION: Poor inspiration with low lung volumes, crowded bronchovascular markings and mild bibasilar atelectasis
--- NOTE | 2017-05-05 12:06 | CP.CCUPN ---
<Hoang Hays - Last Filed: 05/05/17 11:36> CCU Subjective - Physician Review Subjective (Free Text): PGY1 ICU Progress Note for Dr. Flores Patient seen and examined at bedside this morning. No acute events over night. Patient is sitting up in her bed and is much more alert this morning. She is AAOx3. She states that she is feeling well. She has no complaints at this time. CCU Objective - Vital Signs / Intake & Output Vital Signs (Last 4 hours): Vital Signs Temp Pulse Resp BP Pulse Ox 05/05/17 11:09 87 21 155/90 H 100 05/05/17 11:01 88 18 185/102 H 100 05/05/17 11:00 89 15 96 05/05/17 10:30 88 22 181/95 H 100 05/05/17 10:16 84 20 176/95 H 100 05/05/17 10:09 86 22 185/103 H 100 05/05/17 10:01 86 21 179/103 H 100 05/05/17 10:00 87 21 100 05/05/17 09:01 94 H 22 163/97 H 100 05/05/17 09:00 93 H 26 H 100 05/05/17 08:01 83 17 129/79 100 05/05/17 08:00 98.6 F 85 19 100 Intake and Output (Last 8hrs): Intake & Output 05/04/17 05/05/17 05/05/17 22:59 06:59 14:59 Intake Total 520 500 350 Output Total 850 300 250 Balance -330 200 100 Intake: Intake, IV Amount 400 400 350 Right Proximal Port 400 400 350 Femoral Oral 120 100 Output: Urine 850 300 250 Urine, Voided 850 300 250 Other: # Voids Urine, Voided 1 1 - Physical Exam Head: Positive for: Atraumatic, Normocephalic Pupils: Positive for: PERRL Extroacular Muscles: Positive for: EOMI Mouth: Positive for: Moist Mucous Membranes Neck: Positive for: Normal Range of Motion Respiratory/Chest: Positive for: Clear to Auscultation. Negative for: Respiratory Distress, Accessory Muscle Use Cardiovascular: Positive for: Regular Rate and Rhythm Abdomen: Positive for: Normal Bowel Sounds. Negative for: Tenderness, Distention, Peritoneal Signs Upper Extremity: Positive for: Normal Inspection. Negative for: Edema Lower Extremity: Positive for: Normal Inspection. Negative for: Edema Neurological: Positive for: Speech Normal (speaks slow but clear ) Skin: Positive for: Warm, Dry Psychiatric: Positive for: Alert, Lethargic. Negative for: Oriented x 3 - Medications Active Medications: Active Medications Generic Name Dose Route Start Last Admin Trade Name Freq PRN Reason Stop Dose Admin Aspirin 325 mg 05/01/17 10:00 05/05/17 09:34 Aspirin PO 325 mg DAILY MATTHEW Administration Clopidogrel Bisulfate 75 mg 05/01/17 10:00 05/05/17 09:34 Plavix PO 75 mg DAILY MATTHEW Administration Famotidine 20 mg 05/04/17 10:00 05/05/17 09:34 Pepcid PO 20 mg BID MATTHEW Administration Heparin Sodium (Porcine) 5,000 units 05/04/17 14:00 05/05/17 06:15 Heparin SC 5,000 units Q8 MATTHEW Administration Azithromycin 500 mg/ Sodium 250 mls @ 250 mls/hr 05/05/17 10:00 05/05/17 11: 11 Chloride IVPB 250 mls/hr Q12 MATTHEW Administration Insulin Human Regular 0 unit 05/02/17 16:30 05/05/17 09:33 Novolin R SC 2 unit ACHS MATTHEW Administration Protocol Isosorbide Dinitrate 20 mg 05/05/17 10:15 05/05/17 10:57 Isordil PO 20 mg TID MATTHEW Administration Losartan Potassium 50 mg 05/05/17 10:15 05/05/17 10:56 Cozaar PO 50 mg DAILY MATTHEW Administration Metoprolol Tartrate 100 mg 05/03/17 18:00 05/05/17 09:34 Lopressor PO 100 mg BID MATTHEW Administration Rosuvastatin Calcium 20 mg 05/01/17 22:00 05/04/17 22:35 Crestor PO 20 mg HS MATTHEW Administration Saccharomyces Boulardii 250 mg 05/03/17 18:00 05/05/17 09:35 Florastor PO 250 mg BID MATTHEW Administration - Patient Studies Lab Studies: Microbiology Studies 05/01/17 10:00 Blood Culture - Preliminary Blood-Venous NO GROWTH AFTER 3 DAYS 05/01/17 Unknown Blood Culture - Final Blood-Venous Corynebacterium Species Gram Stain - Final Lab Studies 05/05/17 05/05/17 05/05/17 Range/Units 11:17 07:46 06:26 WBC 10.9 H (4.8-10.8) K/uL RBC 2.89 L (3.80-5.20) Mil/uL Hgb 8.4 L (11.0-16.0) g/dL Hct 24.6 L (34.0-47.0) % MCV 85.0 (81.0-99.0) fL MCH 29.0 (27.0-31.0) pg MCHC 34.2 (33.0-37.0) g/dL RDW 14.3 (11.5-14.5) % Plt Count 185 (130-400) K/uL MPV 7.8 (7.2-11.7) fL Neut % (Auto) 73.6 (50.0-75.0) % Lymph % (Auto) 13.2 L (20.0-40.0) % Stark % (Auto) 9.7 (0.0-10.0) % Eos % (Auto) 3.1 (0.0-4.0) % Baso % (Auto) 0.4 (0.0-2.0) % Neut # 8.0 H (1.8-7.0) K/uL Lymph # 1.4 (1.0-4.3) K/uL Stark # 1.1 H (0.0-0.8) K/uL Eos # 0.3 (0.0-0.7) K/uL Baso # 0.0 (0.0-0.2) K/uL Sodium (132-148) mmol/L Potassium (3.6-5.2) mmol/L Chloride (98-107) mmol/L Carbon Dioxide (22-30) mmol/L Anion Gap (10-20) BUN (7-17) mg/dL Creatinine (0.7-1.2) mg/dL Est GFR ( Amer) Est GFR (Non-Af Amer) POC Glucose (mg/dL) 226 H 183 H (65-110) mg/dL Random Glucose (65-105) mg/dL Calcium (8.6-10.4) mg/dl Phosphorus (2.5-4.5) mg/dL Magnesium (1.6-2.3) mg/dL Total Bilirubin (0.2-1.3) mg/dL AST (14-36) U/L ALT (9-52) U/L Alkaline Phosphatase (38-126) U/L NT-Pro-B Natriuret Pep (0-450) pg/mL Total Protein (6.3-8.3) g/dL Albumin (3.5-5.0) g/dL Globulin (2.2-3.9) gm/dL Albumin/Globulin Ratio (1.0-2.1) 05/05/17 05/04/17 05/04/17 Range/Units 06:23 21:21 16:56 WBC (4.8-10.8) K/uL RBC (3.80-5.20) Mil/uL Hgb (11.0-16.0) g/dL Hct (34.0-47.0) % MCV (81.0-99.0) fL MCH (27.0-31.0) pg MCHC (33.0-37.0) g/dL RDW (11.5-14.5) % Plt Count (130-400) K/uL MPV (7.2-11.7) fL Neut % (Auto) (50.0-75.0) % Lymph % (Auto) (20.0-40.0) % Stark % (Auto) (0.0-10.0) % Eos % (Auto) (0.0-4.0) % Baso % (Auto) (0.0-2.0) % Neut # (1.8-7.0) K/uL Lymph # (1.0-4.3) K/uL Stark # (0.0-0.8) K/uL Eos # (0.0-0.7) K/uL Baso # (0.0-0.2) K/uL Sodium 132 (132-148) mmol/L Potassium 3.6 (3.6-5.2) mmol/L Chloride 109 H (98-107) mmol/L Carbon Dioxide 20 L (22-30) mmol/L Anion Gap 7 L (10-20) BUN 16 (7-17) mg/dL Creatinine 1.2 (0.7-1.2) mg/dL Est GFR ( Amer) 59 Est GFR (Non-Af Amer) 49 POC Glucose (mg/dL) 227 H (65-110) mg/dL Random Glucose 211 H (65-105) mg/dL Calcium 7.5 L (8.6-10.4) mg/dl Phosphorus 2.0 L (2.5-4.5) mg/dL Magnesium 1.6 (1.6-2.3) mg/dL Total Bilirubin 0.5 (0.2-1.3) mg/dL AST 20 (14-36) U/L ALT 86 H D (9-52) U/L Alkaline Phosphatase 83 (38-126) U/L NT-Pro-B Natriuret Pep 73475 H 71741 H (0-450) pg/mL Total Protein 4.6 L (6.3-8.3) g/dL Albumin 2.2 L (3.5-5.0) g/dL Globulin 2.4 (2.2-3.9) gm/dL Albumin/Globulin Ratio 0.9 L (1.0-2.1) /05/09 Range/Units 16:14 WBC (4.8-10.8) K/uL RBC (3.80-5.20) Mil/uL Hgb (11.0-16.0) g/dL Hct (34.0-47.0) % MCV (81.0-99.0) fL MCH (27.0-31.0) pg MCHC (33.0-37.0) g/dL RDW (11.5-14.5) % Plt Count (130-400) K/uL MPV (7.2-11.7) fL Neut % (Auto) (50.0-75.0) % Lymph % (Auto) (20.0-40.0) % Stark % (Auto) (0.0-10.0) % Eos % (Auto) (0.0-4.0) % Baso % (Auto) (0.0-2.0) % Neut # (1.8-7.0) K/uL Lymph # (1.0-4.3) K/uL Stark # (0.0-0.8) K/uL Eos # (0.0-0.7) K/uL Baso # (0.0-0.2) K/uL Sodium (132-148) mmol/L Potassium (3.6-5.2) mmol/L Chloride (98-107) mmol/L Carbon Dioxide (22-30) mmol/L Anion Gap (10-20) BUN (7-17) mg/dL Creatinine (0.7-1.2) mg/dL Est GFR ( Amer) Est GFR (Non-Af Amer) POC Glucose (mg/dL) 273 H (65-110) mg/dL Random Glucose (65-105) mg/dL Calcium (8.6-10.4) mg/dl Phosphorus (2.5-4.5) mg/dL Magnesium (1.6-2.3) mg/dL Total Bilirubin (0.2-1.3) mg/dL AST (14-36) U/L ALT (9-52) U/L Alkaline Phosphatase (38-126) U/L NT-Pro-B Natriuret Pep (0-450) pg/mL Total Protein (6.3-8.3) g/dL Albumin (3.5-5.0) g/dL Globulin (2.2-3.9) gm/dL Albumin/Globulin Ratio (1.0-2.1) Laboratory Results - last 24 hr 05/04/17 05/04/17 05/04/17 16:14 16:56 21:21 WBC RBC Hgb Hct MCV MCH MCHC RDW Plt Count MPV Neut % (Auto) Lymph % (Auto) Stark % (Auto) Eos % (Auto) Baso % (Auto) Neut # Lymph # Stark # Eos # Baso # Sodium Potassium Chloride Carbon Dioxide Anion Gap BUN Creatinine Est GFR ( Amer) Est GFR (Non-Af Amer) POC Glucose (mg/dL) 273 H 227 H Random Glucose Calcium Phosphorus Magnesium Total Bilirubin AST ALT Alkaline Phosphatase NT-Pro-B Natriuret Pep 29985 H Total Protein Albumin Globulin Albumin/Globulin Ratio 05/05/17 05/05/17 05/05/17 06:23 06:26 07:46 WBC 10.9 H RBC 2.89 L Hgb 8.4 L Hct 24.6 L MCV 85.0 MCH 29.0 MCHC 34.2 RDW 14.3 Plt Count 185 MPV 7.8 Neut % (Auto) 73.6 Lymph % (Auto) 13.2 L Stark % (Auto) 9.7 Eos % (Auto) 3.1 Baso % (Auto) 0.4 Neut # 8.0 H Lymph # 1.4 Stark # 1.1 H Eos # 0.3 Baso # 0.0 Sodium 132 Potassium 3.6 Chloride 109 H Carbon Dioxide 20 L Anion Gap 7 L BUN 16 Creatinine 1.2 Est GFR ( Amer) 59 Est GFR (Non-Af Amer) 49 POC Glucose (mg/dL) 183 H Random Glucose 211 H Calcium 7.5 L Phosphorus 2.0 L Magnesium 1.6 Total Bilirubin 0.5 AST 20 ALT 86 H D Alkaline Phosphatase 83 NT-Pro-B Natriuret Pep 75698 H Total Protein 4.6 L Albumin 2.2 L Globulin 2.4 Albumin/Globulin Ratio 0.9 L 05/05/17 11:17 WBC RBC Hgb Hct MCV MCH MCHC RDW Plt Count MPV Neut % (Auto) Lymph % (Auto) Stark % (Auto) Eos % (Auto) Baso % (Auto) Neut # Lymph # Stark # Eos # Baso # Sodium Potassium Chloride Carbon Dioxide Anion Gap BUN Creatinine Est GFR ( Amer) Est GFR (Non-Af Amer) POC Glucose (mg/dL) 226 H Random Glucose Calcium Phosphorus Magnesium Total Bilirubin AST ALT Alkaline Phosphatase NT-Pro-B Natriuret Pep Total Protein Albumin Globulin Albumin/Globulin Ratio Fingerstick Blood Sugar Results: 227 Review of Systems - Review of Systems All systems: reviewed and no additional remarkable complaints except (as per HPI ) Critical Care Progress Note - Nutrition Nutrition: Nutrition Category Date Time Status Heart Healthy Diet [DIET] Diets 05/02/17 Dinner Active Assessment/Plan - Assessment and Plan (Free Text) Assessment: 41 year old female s/p cardiac arrest post left foot reconstruction surg complicated with bleeding with acute STEMI, s/p BMS stent, also concern about left main disease has aortic balloon pump, plan for elective recath likely at [facility]. Plan: CV: Cardio consult, Dr. Morales, help appreciated CODE Blue STEMI - s/p BM stent placement Cardiogenic shock - requiring IABP - removed on 05/03 Pro-BNP [id number] Aspirin 325mg PO daily Plavix 75mg PO daily Metoprolol Tartrate 100 mg PO BID Crestory 20mg PO HS Nitro drip - discontinued NS @ 50mLs/hr - discontinued Losartan 50 mg PO daily Isosorbide Dinitrate 20 mg PO TID ECHO - EF 40-45%, LV moderately impaired f/u cardio recs - plan for elective recath likely at [facility] - f/u BNP tomorrow, will decide plan for possible transfer tomorrow. Neuro: Neuro consult, Dr. Masterson, help appreciated Patient much more alert today. Answering questions appropriately. AAOx3. Head CT 05/04 - Acute infarct left posterior cerebral artery distribution. . There also appears to be acute infarct changes in the right cerebellum. Minimal chronic periventricular white matter ischemic changes. No acute intracranial hemorrhage. f/u neuro recs - continue anti platelets - not a candidate for anticoag due to hemorrhagic conversion f/u MRI of brain Respiratory: CXR 05/05 - Poor inspiration with low lung volumes, crowded bronchovascular markings and mild bibasilar atelectasis Endo: ISS ID: Infectious Disease consulted, Dr. Dueñas, help appreciated WBC 10.9 Azithromycin 500mg IVPB q12h (started on Urine Culture (05/01) - negative Blood Culture (05/01) - positive for corynebacterium x1 and negative x1 after 4 days Podiatry: Dr. Chung consulted, help appreciated Dr. Thurman consulted, help appreciated s/p Charcot joint surgery Prophylactic Care: Heparin 5000units SC q12h Protonix 40mg PO daily Florastor 250mg PO q12h Case discussed with Dr. Mark Bolton Saúl PGY1 <Jorge Flores - Last Filed: 05/05/17 17:30> CCU Objective - Vital Signs / Intake & Output Vital Signs (Last 4 hours): Vital Signs Temp Pulse Resp BP Pulse Ox 05/05/17 16:00 97.9 F 82 21 100 05/05/17 15:57 81 20 164/92 H 100 05/05/17 15:37 80 17 166/102 H 05/05/17 15:33 88 15 05/05/17 14:02 79 136/69 100 05/05/17 14:00 78 22 100 Intake and Output (Last 8hrs): Intake & Output 05/05/17 05/05/17 05/05/17 06:59 14:59 22:59 Intake Total 500 450 0 Output Total 300 450 300 Balance 200 0 -300 Intake: Intake, IV Amount 400 350 Right Proximal Port 400 350 Femoral Oral 100 100 0 Output: Urine 300 450 300 Urine, Voided 300 450 300 Other: # Voids Urine, Voided 1 - Medications Active Medications: Active Medications Generic Name Dose Route Start Last Admin Trade Name Alexq PRN Reason Stop Dose Admin Aspirin 325 mg 05/01/17 10:00 05/05/17 09:34 Aspirin PO 325 mg DAILY MATTHEW Administration Clopidogrel Bisulfate 75 mg 05/01/17 10:00 05/05/17 09:34 Plavix PO 75 mg DAILY MATTHEW Administration Famotidine 20 mg 05/04/17 10:00 05/05/17 17:22 Pepcid PO 20 mg BID MATTHEW Administration Heparin Sodium (Porcine) 5,000 units 05/04/17 14:00 05/05/17 16:05 Heparin SC Not Given Q8 [facility] Azithromycin 500 mg/ Sodium 250 mls @ 250 mls/hr 05/05/17 10:00 05/05/17 11: 11 Chloride IVPB 250 mls/hr Q12 MATTHEW Administration Insulin Human Regular 0 unit 05/02/17 16:30 05/05/17 17:23 Novolin R SC 3 unit ACHS MATTHEW Administration Protocol Isosorbide Dinitrate 20 mg 05/05/17 10:15 05/05/17 17:22 Isordil PO 20 mg TID MATTHEW Administration Losartan Potassium 50 mg 05/05/17 10:15 05/05/17 10:56 Cozaar PO 50 mg DAILY MATTHEW Administration Metoprolol Tartrate 100 mg 05/03/17 18:00 05/05/17 17:22 Lopressor PO 100 mg BID MATTHEW Administration Rosuvastatin Calcium 20 mg 05/01/17 22:00 05/04/17 22:35 Crestor PO 20 mg HS MATTHEW Administration Saccharomyces Boulardii 250 mg 05/03/17 18:00 05/05/17 09:35 Florastor PO 250 mg BID MATTHEW Administration - Patient Studies Lab Studies: Microbiology Studies 05/01/17 10:00 Blood Culture - Preliminary Blood-Venous NO GROWTH AFTER 4 DAYS Lab Studies 05/05/17 05/05/17 05/05/17 Range/Units 16:22 11:17 07:46 WBC (4.8-10.8) K/uL RBC (3.80-5.20) Mil/uL Hgb (11.0-16.0) g/dL Hct (34.0-47.0) % MCV (81.0-99.0) fL MCH (27.0-31.0) pg MCHC (33.0-37.0) g/dL RDW (11.5-14.5) % Plt Count (130-400) K/uL MPV (7.2-11.7) fL Neut % (Auto) (50.0-75.0) % Lymph % (Auto) (20.0-40.0) % Stark % (Auto) (0.0-10.0) % Eos % (Auto) (0.0-4.0) % Baso % (Auto) (0.0-2.0) % Neut # (1.8-7.0) K/uL Lymph # (1.0-4.3) K/uL Stark # (0.0-0.8) K/uL Eos # (0.0-0.7) K/uL Baso # (0.0-0.2) K/uL Sodium (132-148) mmol/L Potassium (3.6-5.2) mmol/L Chloride (98-107) mmol/L Carbon Dioxide (22-30) mmol/L Anion Gap (10-20) BUN (7-17) mg/dL Creatinine (0.7-1.2) mg/dL Est GFR ( Amer) Est GFR (Non-Af Amer) POC Glucose (mg/dL) 225 H 226 H 183 H (65-110) mg/dL Random Glucose (65-105) mg/dL Calcium (8.6-10.4) mg/dl Phosphorus (2.5-4.5) mg/dL Magnesium (1.6-2.3) mg/dL Total Bilirubin (0.2-1.3) mg/dL AST (14-36) U/L ALT (9-52) U/L Alkaline Phosphatase (38-126) U/L NT-Pro-B Natriuret Pep (0-450) pg/mL Total Protein (6.3-8.3) g/dL Albumin (3.5-5.0) g/dL Globulin (2.2-3.9) gm/dL Albumin/Globulin Ratio (1.0-2.1) 05/05/17 05/05/17 05/04/17 Range/Units 06:26 06:23 21:21 WBC 10.9 H (4.8-10.8) K/uL RBC 2.89 L (3.80-5.20) Mil/uL Hgb 8.4 L (11.0-16.0) g/dL Hct 24.6 L (34.0-47.0) % MCV 85.0 (81.0-99.0) fL MCH 29.0 (27.0-31.0) pg MCHC 34.2 (33.0-37.0) g/dL RDW 14.3 (11.5-14.5) % Plt Count 185 (130-400) K/uL MPV 7.8 (7.2-11.7) fL Neut % (Auto) 73.6 (50.0-75.0) % Lymph % (Auto) 13.2 L (20.0-40.0) % Stark % (Auto) 9.7 (0.0-10.0) % Eos % (Auto) 3.1 (0.0-4.0) % Baso % (Auto) 0.4 (0.0-2.0) % Neut # 8.0 H (1.8-7.0) K/uL Lymph # 1.4 (1.0-4.3) K/uL Stark # 1.1 H (0.0-0.8) K/uL Eos # 0.3 (0.0-0.7) K/uL Baso # 0.0 (0.0-0.2) K/uL Sodium 132 (132-148) mmol/L Potassium 3.6 (3.6-5.2) mmol/L Chloride 109 H (98-107) mmol/L Carbon Dioxide 20 L (22-30) mmol/L Anion Gap 7 L (10-20) BUN 16 (7-17) mg/dL Creatinine 1.2 (0.7-1.2) mg/dL Est GFR ( Amer) 59 Est GFR (Non-Af Amer) 49 POC Glucose (mg/dL) 227 H (65-110) mg/dL Random Glucose 211 H (65-105) mg/dL Calcium 7.5 L (8.6-10.4) mg/dl Phosphorus 2.0 L (2.5-4.5) mg/dL Magnesium 1.6 (1.6-2.3) mg/dL Total Bilirubin 0.5 (0.2-1.3) mg/dL AST 20 (14-36) U/L ALT 86 H D (9-52) U/L Alkaline Phosphatase 83 (38-126) U/L NT-Pro-B Natriuret Pep 45998 H (0-450) pg/mL Total Protein 4.6 L (6.3-8.3) g/dL Albumin 2.2 L (3.5-5.0) g/dL Globulin 2.4 (2.2-3.9) gm/dL Albumin/Globulin Ratio 0.9 L (1.0-2.1) 05/04/17 Range/Units 16:56 WBC (4.8-10.8) K/uL RBC (3.80-5.20) Mil/uL Hgb (11.0-16.0) g/dL Hct (34.0-47.0) % MCV (81.0-99.0) fL MCH (27.0-31.0) pg MCHC (33.0-37.0) g/dL RDW (11.5-14.5) % Plt Count (130-400) K/uL MPV (7.2-11.7) fL Neut % (Auto) (50.0-75.0) % Lymph % (Auto) (20.0-40.0) % Stark % (Auto) (0.0-10.0) % Eos % (Auto) (0.0-4.0) % Baso % (Auto) (0.0-2.0) % Neut # (1.8-7.0) K/uL Lymph # (1.0-4.3) K/uL Stark # (0.0-0.8) K/uL Eos # (0.0-0.7) K/uL Baso # (0.0-0.2) K/uL Sodium (132-148) mmol/L Potassium (3.6-5.2) mmol/L Chloride (98-107) mmol/L Carbon Dioxide (22-30) mmol/L Anion Gap (10-20) BUN (7-17) mg/dL Creatinine (0.7-1.2) mg/dL Est GFR ( Amer) Est GFR (Non-Af Amer) POC Glucose (mg/dL) (65-110) mg/dL Random Glucose (65-105) mg/dL Calcium (8.6-10.4) mg/dl Phosphorus (2.5-4.5) mg/dL Magnesium (1.6-2.3) mg/dL Total Bilirubin (0.2-1.3) mg/dL AST (14-36) U/L ALT (9-52) U/L Alkaline Phosphatase (38-126) U/L NT-Pro-B Natriuret Pep 37102 H (0-450) pg/mL Total Protein (6.3-8.3) g/dL Albumin (3.5-5.0) g/dL Globulin (2.2-3.9) gm/dL Albumin/Globulin Ratio (1.0-2.1) Laboratory Results - last 24 hr 05/04/17 05/04/17 05/05/17 16:56 21:21 06:23 WBC RBC Hgb Hct MCV MCH MCHC RDW Plt Count MPV Neut % (Auto) Lymph % (Auto) Stark % (Auto) Eos % (Auto) Baso % (Auto) Neut # Lymph # Stark # Eos # Baso # Sodium 132 Potassium 3.6 Chloride 109 H Carbon Dioxide 20 L Anion Gap 7 L BUN 16 Creatinine 1.2 Est GFR ( Amer) 59 Est GFR (Non-Af Amer) 49 POC Glucose (mg/dL) 227 H Random Glucose 211 H Calcium 7.5 L Phosphorus 2.0 L Magnesium 1.6 Total Bilirubin 0.5 AST 20 ALT 86 H D Alkaline Phosphatase 83 NT-Pro-B Natriuret Pep 39008 H 54273 H Total Protein 4.6 L Albumin 2.2 L Globulin 2.4 Albumin/Globulin Ratio 0.9 L 05/05/17 05/05/17 05/05/17 06:26 07:46 11:17 WBC 10.9 H RBC 2.89 L Hgb 8.4 L Hct 24.6 L MCV 85.0 MCH 29.0 MCHC 34.2 RDW 14.3 Plt Count 185 MPV 7.8 Neut % (Auto) 73.6 Lymph % (Auto) 13.2 L Stark % (Auto) 9.7 Eos % (Auto) 3.1 Baso % (Auto) 0.4 Neut # 8.0 H Lymph # 1.4 Stark # 1.1 H Eos # 0.3 Baso # 0.0 Sodium Potassium Chloride Carbon Dioxide Anion Gap BUN Creatinine Est GFR ( Amer) Est GFR (Non-Af Amer) POC Glucose (mg/dL) 183 H 226 H Random Glucose Calcium Phosphorus Magnesium Total Bilirubin AST ALT Alkaline Phosphatase NT-Pro-B Natriuret Pep Total Protein Albumin Globulin Albumin/Globulin Ratio 05/05/17 16:22 WBC RBC Hgb Hct MCV MCH MCHC RDW Plt Count MPV Neut % (Auto) Lymph % (Auto) Stark % (Auto) Eos % (Auto) Baso % (Auto) Neut # Lymph # Stark # Eos # Baso # Sodium Potassium Chloride Carbon Dioxide Anion Gap BUN Creatinine Est GFR ( Amer) Est GFR (Non-Af Amer) POC Glucose (mg/dL) 225 H Random Glucose Calcium Phosphorus Magnesium Total Bilirubin AST ALT Alkaline Phosphatase NT-Pro-B Natriuret Pep Total Protein Albumin Globulin Albumin/Globulin Ratio Critical Care Progress Note - Nutrition Nutrition: Nutrition Category Date Time Status Heart Healthy Diet [DIET] Diets 05/02/17 Dinner Active Attending/Attestation - Attestation I have personally seen and examined this patient.: Yes I have fully participated in the care of the patient.: Yes I have reviewed all pertinent clinical information: Yes Notes (Text): 05/05/17 17:28 Patient seen and examined in the intensive care unit. Case discussed with house staff in the morning rounds Patient is awake alert oriented For MRI of brain Continue Plavix and aspirin plan for elective recath likely at [facility] elevated proBNP noted, patient in no respiratory distress Seen by cardiology
--- NOTE | 2017-05-05 13:00 | CP.PCM.PN ---
Subjective - Date & Time of Evaluation Date of Evaluation: 05/05/17 Time of Evaluation: 13:00 - Subjective Subjective: Podiatry progress note for Dr. Chung 41 year old female was seen at bedside today 5 days s/p left foot Charcot reconstruction. She is responsive to questions at time of visit. She denies any pain to her lower extremities. Denies any n/v/f/c/sob/cp. Objective - Vital Signs/Intake and Output Vital Signs (last 24 hours): Temp Pulse Resp BP Pulse Ox 98.3 F 76 21 129/77 100 05/05/17 12:00 05/05/17 12:02 05/05/17 12:02 05/05/17 12:02 05/05/17 12:02 Intake and Output: 05/05/17 05/05/17 06:59 18:59 Intake Total 820 350 Output Total 1150 250 Balance -330 100 - Medications Medications: Current Medications Aspirin (Aspirin) 325 mg PO DAILY [facility] Last Admin: 05/05/17 09:34 Dose: 325 mg Clopidogrel Bisulfate (Plavix) 75 mg PO DAILY [facility] Last Admin: 05/05/17 09:34 Dose: 75 mg Famotidine (Pepcid) 20 mg PO BID [facility] Last Admin: 05/05/17 09:34 Dose: 20 mg Heparin Sodium (Porcine) (Heparin) 5,000 units SC Q8 [facility] Last Admin: 05/05/17 06:15 Dose: 5,000 units Azithromycin 500 mg/ Sodium (Chloride) 250 mls @ 250 mls/hr IVPB Q12 [facility] Last Admin: 05/05/17 11:11 Dose: 250 mls/hr Insulin Human Regular (Novolin R) 0 unit SC ACHS [facility] PRN Reason: Protocol Last Admin: 05/05/17 12:53 Dose: 3 unit Isosorbide Dinitrate (Isordil) 20 mg PO TID [facility] Last Admin: 05/05/17 10:57 Dose: 20 mg Losartan Potassium (Cozaar) 50 mg PO DAILY [facility] Last Admin: 05/05/17 10:56 Dose: 50 mg Metoprolol Tartrate (Lopressor) 100 mg PO BID [facility] Last Admin: 05/05/17 09:34 Dose: 100 mg Rosuvastatin Calcium (Crestor) 20 mg PO HS [facility] Last Admin: 12/12/17 22:35 Dose: 20 mg Saccharomyces Boulardii (Florastor) 250 mg PO BID [facility] Last Admin: 05/05/17 09:35 Dose: 250 mg - Labs Labs: 05/05/17 06:26 05/05/17 06:23 PT 13.5 SECONDS (9.7-12.2) H 04/30/17 22:43 INR 1.2 04/30/17 22:43 APTT 71 SECONDS (21-34) H D 05/01/17 00:26 - Constitutional Appears: Non-toxic, No Acute Distress - Extremities Exam Additional comments: Dressing to left lower extremity intact CFT < 3 sec to all digits of left foot No pedal edema noted B/L - Neurological Exam Neurological Exam: Alert, Awake - Psychiatric Exam Psychiatric exam: Normal Affect, Normal Mood Assessment and Plan - Assessment and Plan (Free Text) Assessment: 41 year old female 5 days s/p left foot Charcot reconstruction. Plan: Patient seen and examined at bedside in ICU Discussed with attendings Dr. Chung and Dr. Thurman Labs and vitals reviewed- afebrile, WBC 10.9 Dressing to LLE to be kept clean, dry and intact Patient to remain non WB to LLE Podiatry will continue to monitor patient daily
--- NOTE | 2017-05-05 15:47 | MRI ---
PROCEDURE: MRI BRAIN WITHOUT CONTRAST HISTORY: CT head shows left REPAIR SPECIALIST and Rt cerebellar infarct COMPARISON: Noncontrast head CT from 05/03/2017. TECHNIQUE: Multiplanar, multisequence MR images of the brain were obtained without intravenous contrast enhancement. FINDINGS: HEMORRHAGE: None DWI: There is a large area of restricted diffusion in the left occipital lobe. There are focal areas of restricted diffusion in the right cerebellar hemisphere. BRAIN PARENCHYMA: There is corresponding increased T2/FLAIR signal in the left occipital lobe with mild gyral edema. there is also T2/FLAIR hyperintense signal corresponding to areas of restricted diffusion in the right cerebellar hemisphere. there is no mass effect or abnormal extra-axial fluid collection . There is no midline shift or herniation . The midline sagittal structures are normal. VENTRICLES: The ventricles are normal in size, shape and configuration. CRANIUM: There is normal bone marrow signal pattern. ORBITS: Grossly unremarkable. PARANASAL SINUSES/MASTOIDS: Clear VASCULAR SYSTEM: There are normal signal voids in the larger intracranial arteries. OTHER FINDINGS: None. IMPRESSION: 1. 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 Mild gyral edema without evidence of mass effect or midline shift. 2. Multifocal subacute infarctions in the right cerebellar hemisphere.
--- NOTE | 2017-05-05 15:48 | MRI ---
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 TECHNIQUE: 3D time of flight MR angiography of the intracranial arteries was performed. Rotating maximum intensity projection images were generated. FINDINGS: INTERNAL CAROTID ARTERIES: Normal flow related signal. The skull base, petrous, cavernous and supraclinoid segments are bilaterally widely patient. ANTERIOR CEREBRAL ARTERIES: Normal flow related signal. A1 and A2 segments are widely patent. Smaller distal branches unremarkable, as visualized. MIDDLE CEREBRAL ARTERIES: Normal flow related signal. M1 and M2 segments are widely patent. Perisylvian branches grossly symmetric. POSTERIOR CIRCULATION: Basilar Artery: Widely patent. Distal Vertebral Arteries: Widely patent. Posterior Cerebral Arteries: Widely patent. Posterior Inferior Cerebellar Arteries: Widely patent. ANEURYSM/ VASCULAR MALFORMATIONS: None. OTHER FINDINGS: None. IMPRESSION: Normal MR angiography of the brain.
--- NOTE | 2017-05-05 15:51 | MRI ---
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 Rotating maximum intensity projection images of the cervical carotid and vertebral arteries were generated. The origins of the common carotid arteries were not visualized, which is a limitation inherent to the non-contrast time of flight technique. FINDINGS: RIGHT CAROTID ARTERIES: Common Carotid Artery: Normal. Carotid Bifurcation: Normal. Internal Carotid Artery:Normal. External Carotid Artery (proximal branches): Normal. LEFT CAROTID ARTERIES: Common Carotid Artery: Normal. Carotid Bifurcation: Normal. Internal Carotid Artery:Normal. External Carotid Artery (proximal branches): Normal. VERTEBRAL ARTERIES: Right Vertebral Artery: Normal. Left Vertebral Artery: Normal. OTHER FINDINGS: None. IMPRESSION: Normal MR Angiography of the neck.
--- NOTE | 2017-05-05 18:26 | CP.PCM.PN ---
Subjective - Date & Time of Evaluation Date of Evaluation: 05/05/17 Time of Evaluation: 08:00 - Subjective Subjective: SEEN ON ROUNDS EVENTS NOTED SEVERE CAD FOR TRANSFER TO [facility] Objective - Vital Signs/Intake and Output Vital Signs (last 24 hours): Temp Pulse Resp BP Pulse Ox 97.9 F 82 21 164/92 H 100 05/05/17 16:00 05/05/17 16:00 05/05/17 16:00 05/05/17 15:57 05/05/17 16:00 Intake and Output: 05/05/17 05/05/17 06:59 18:59 Intake Total 820 450 Output Total 1150 750 Balance -330 -300 - Medications Medications: Current Medications Aspirin (Aspirin) 325 mg PO DAILY [facility] Last Admin: 05/05/17 09:34 Dose: 325 mg Clopidogrel Bisulfate (Plavix) 75 mg PO DAILY [facility] Last Admin: 05/05/17 09:34 Dose: 75 mg Famotidine (Pepcid) 20 mg PO BID [facility] Last Admin: 05/05/17 17:22 Dose: 20 mg Heparin Sodium (Porcine) (Heparin) 5,000 units SC Q8 [facility] Last Admin: 05/05/17 16:05 Dose: Not Given Azithromycin 500 mg/ Sodium (Chloride) 250 mls @ 250 mls/hr IVPB Q12 [facility] Last Admin: 05/05/17 11:11 Dose: 250 mls/hr Insulin Human Regular (Novolin R) 0 unit SC ACHS [facility] PRN Reason: Protocol Last Admin: 05/05/17 17:23 Dose: 3 unit Isosorbide Dinitrate (Isordil) 20 mg PO TID [facility] Last Admin: 05/05/17 17:22 Dose: 20 mg Losartan Potassium (Cozaar) 50 mg PO DAILY [facility] Last Admin: 05/05/17 10:56 Dose: 50 mg Metoprolol Tartrate (Lopressor) 100 mg PO BID [facility] Last Admin: 05/05/17 17:22 Dose: 100 mg Rosuvastatin Calcium (Crestor) 20 mg PO HS [facility] Last Admin: 05/04/17 22:35 Dose: 20 mg Saccharomyces Boulardii (Florastor) 250 mg PO BID [facility] Last Admin: 05/05/17 09:35 Dose: 250 mg - Labs Labs: 05/05/17 06:26 05/05/17 06:23 PT 13.5 SECONDS (9.7-12.2) H 04/30/17 22:43 INR 1.2 04/30/17 22:43 APTT 71 SECONDS (21-34) H D 05/01/17 00:26 - Constitutional Appears: Non-toxic, No Acute Distress, Chronically Ill - Head Exam Head Exam: NORMOCEPHALIC - Eye Exam Eye Exam: PERRL - ENT Exam ENT Exam: Mucous Membranes Dry - Neck Exam Neck Exam: absent: Lymphadenopathy - Respiratory Exam Respiratory Exam: Decreased Breath Sounds - Cardiovascular Exam Cardiovascular Exam: REGULAR RHYTHM - GI/Abdominal Exam GI & Abdominal Exam: Distended, Soft - Rectal Exam Rectal Exam: Deferred - Exam Exam: NORMAL INSPECTION - Extremities Exam Extremities Exam: Pedal Edema. absent: Calf Tenderness, Tenderness Assessment and Plan (1) Acute ST elevation myocardial infarction (STEMI) Status: Acute (2) Cardiogenic postoperative shock Status: Acute (3) Sepsis Status: Acute (4) Charcot's joint of foot Status: Chronic (5) Diabetes Status: Chronic (6) HLD (hyperlipidemia) Status: Chronic (7) Arthritis of left ankle Status: Acute (8) DM2 (diabetes mellitus, type 2) Status: Acute (9) HTN (hypertension) Status: Chronic
[2017-05-06 04:50] VITALS: TEMP 98.2
[2017-05-06 06:25] LABS: BASO # 0.1 K/uL (0.0-0.2); BASO % 0.6 % (0.0-2.0); EOS # 0.4 K/uL (0.0-0.7); EOS % 2.6 % (0.0-4.0); HEMATOCRIT 32.4 % (34.0-47.0); LYMPH # 3.3 K/uL (1.0-4.3); LYMPH % 20.2 % (20.0-40.0); MEAN CELL VOLUME 84.9 fL (81.0-99.0); MEAN CORPUSCULAR HEMOGLOBIN 27.6 pg (27.0-31.0); MEAN CORPUSCULAR HGB CONC 32.5 g/dL (33.0-37.0); MEAN PLATELET VOLUME 7.6 fL (7.2-11.7); MONO # 1.6 K/uL (0.0-0.8); MONO % 9.6 % (0.0-10.0); NRBC % 0.1 % (0.0-2.0); RED CELL DISTRIBUTION WIDTH 14.5 % (11.5-14.5); WHITE BLOOD COUNT 16.5 K/uL (4.8-10.8)
[2017-05-06 06:55] LABS: ALB/GLOB RATIO 0.7 (1.0-2.1); ALKALINE PHOSPHATASE 112 U/L (38-126); ALT/SGPT 86 U/L (9-52); AST/SGOT 26 U/L (14-36); BILIRUBIN,TOTAL 0.6 mg/dL (0.2-1.3); BLOOD UREA NITROGEN 12 mg/dL (7-17); CALCIUM 7.9 mg/dl (8.6-10.4); CARBON DIOXIDE 21 mmol/L (22-30); CHLORIDE 107 mmol/L (98-107); GFR AFRICAN-AMERICAN > 60; GLUCOSE,RANDOM 189 mg/dL (65-105); MAGNESIUM 1.7 mg/dL (1.6-2.3); PHOSPHOROUS 2.6 mg/dL (2.5-4.5); POTASSIUM 3.4 mmol/L (3.6-5.2); SODIUM 132 mmol/L (132-148); TOTAL PROTEIN 6.9 g/dL (6.3-8.3)
[2017-05-06] MEDS ORDERED: Potassium Chloride 20 mEq ER Tab PO ONE ×2 (07:30→08:39)
[2017-05-06] MEDS: (Novolin R) Insulin Human Regular 100 units/ml vial SC SCH (07:47)
--- NOTE | 2017-05-06 08:11 | CP.PCM.PN ---
Subjective - Date & Time of Evaluation Date of Evaluation: 05/06/17 Time of Evaluation: 07:30 - Subjective Subjective: Podiatry progress note for Dr. Chung 41 year old female was seen at bedside today 6 days s/p left foot Charcot reconstruction. She is responsive to questions at time of visit. She denies any pain to her left foot. She is aware that a splint will be placed today on her left foot. Denies any n/v/f/c/cp. Objective - Vital Signs/Intake and Output Vital Signs (last 24 hours): Temp Pulse Resp BP Pulse Ox 98.2 F 77 16 161/88 H 100 05/06/17 04:00 05/06/17 05:21 05/06/17 05:21 05/06/17 05:21 05/06/17 05:21 Intake and Output: 05/06/17 05/06/17 06:59 18:59 Intake Total 100 Output Total 600 Balance -500 - Medications Medications: Current Medications Aspirin (Aspirin) 325 mg PO DAILY [facility] Last Admin: 05/05/17 09:34 Dose: 325 mg Clopidogrel Bisulfate (Plavix) 75 mg PO DAILY [facility] Last Admin: 05/05/17 09:34 Dose: 75 mg Famotidine (Pepcid) 20 mg PO BID [facility] Last Admin: 05/05/17 17:22 Dose: 20 mg Heparin Sodium (Porcine) (Heparin) 5,000 units SC Q8 [facility] Last Admin: 05/06/17 06:11 Dose: 5,000 units Azithromycin 500 mg/ Sodium (Chloride) 250 mls @ 250 mls/hr IVPB Q12 [facility] Last Admin: 05/05/17 23:00 Dose: 250 mls/hr Insulin Human Regular (Novolin R) 0 unit SC ACHS [facility] PRN Reason: Protocol Last Admin: 05/06/17 07:47 Dose: Not Given Isosorbide Dinitrate (Isordil) 20 mg PO TID [facility] Last Admin: 05/05/17 17:22 Dose: 20 mg Losartan Potassium (Cozaar) 50 mg PO DAILY [facility] Last Admin: 05/05/17 10:56 Dose: 50 mg Metoprolol Tartrate (Lopressor) 100 mg PO BID [facility] Last Admin: 05/05/17 17:22 Dose: 100 mg Rosuvastatin Calcium (Crestor) 20 mg PO HS [facility] Last Admin: 05/05/17 23:00 Dose: 20 mg Saccharomyces Bojazzminedii (Florastor) 250 mg PO BID [facility] Last Admin: 05/05/17 20:00 Dose: 250 mg - Labs Labs: 05/06/17 06:21 05/06/17 06:21 PT 13.5 SECONDS (9.7-12.2) H 04/30/17 22:43 INR 1.2 04/30/17 22:43 APTT 71 SECONDS (21-34) H D 05/01/17 00:26 - Constitutional Appears: Non-toxic, No Acute Distress - Extremities Exam Additional comments: Dressing to left lower extremity intact CFT < 3 sec to all digits of left foot No pedal edema noted B/L - Neurological Exam Neurological Exam: Alert, Awake - Psychiatric Exam Psychiatric exam: Normal Affect, Normal Mood Assessment and Plan - Assessment and Plan (Free Text) Assessment: 41 year old female 6 days s/p left foot Charcot reconstruction. Plan: Patient seen and examined at bedside in ICU Discussed with attendings Dr. Chung and Dr. Thurman Labs and vitals reviewed- afebrile, WBC 16.5 Well-padded posterior splint applied to LLE, to remain C/D/I until fu Patient to remain non WB to LLE Patient will follow up with podiatry
--- NOTE | 2017-05-06 08:31 | CP.PCM.PN ---
Subjective - Date & Time of Evaluation Date of Evaluation: 05/06/17 Time of Evaluation: 07:00 - Subjective Subjective: Patient seen and examined at bedside. Patient's mental status continues to improve. Patient still able to recall nursing home memory, short term memory however is impaired. Patient communicates well and was noted to be moving all extremities. Patient states she feels great. Will be transferred to [facility] for [facility]; patient is understands and is aware of both transfer and procedure. Admits to cough related chest discomfort. Denies shortness of breath, palpitations, abdominal pain, fever, chills. Objective - Vital Signs/Intake and Output Vital Signs (last 24 hours): Temp Pulse Resp BP Pulse Ox 98.2 F 77 16 161/88 H 100 05/06/17 04:00 05/06/17 05:21 05/06/17 05:21 05/06/17 05:21 05/06/17 05:21 Intake and Output: 05/06/17 05/06/17 06:59 18:59 Intake Total 100 Output Total 600 Balance -500 - Medications Medications: Current Medications Aspirin (Aspirin) 325 mg PO DAILY [facility] Last Admin: 05/05/17 09:34 Dose: 325 mg Clopidogrel Bisulfate (Plavix) 75 mg PO DAILY [facility] Last Admin: 05/05/17 09:34 Dose: 75 mg Famotidine (Pepcid) 20 mg PO BID [facility] Last Admin: 05/05/17 17:22 Dose: 20 mg Heparin Sodium (Porcine) (Heparin) 5,000 units SC Q8 [facility] Last Admin: 05/06/17 06:11 Dose: 5,000 units Azithromycin 500 mg/ Sodium (Chloride) 250 mls @ 250 mls/hr IVPB Q12 [facility] Last Admin: 05/05/17 23:00 Dose: 250 mls/hr Insulin Human Regular (Novolin R) 0 unit SC ACHS [facility] PRN Reason: Protocol Last Admin: 05/06/17 07:47 Dose: Not Given Isosorbide Dinitrate (Isordil) 20 mg PO TID [facility] Last Admin: 05/05/17 17:22 Dose: 20 mg Losartan Potassium (Cozaar) 50 mg PO DAILY [facility] Last Admin: 05/05/17 10:56 Dose: 50 mg Metoprolol Tartrate (Lopressor) 100 mg PO BID [facility] Last Admin: 05/05/17 17:22 Dose: 100 mg Rosuvastatin Calcium (Crestor) 20 mg PO HS [facility] Last Admin: 05/05/17 23:00 Dose: 20 mg Saccharomyces Boulardii (Florastor) 250 mg PO BID [facility] Last Admin: 05/05/17 20:00 Dose: 250 mg - Labs Labs: 05/06/17 06:21 05/06/17 06:21 PT 13.5 SECONDS (9.7-12.2) H 04/30/17 22:43 INR 1.2 04/30/17 22:43 APTT 71 SECONDS (21-34) H D 05/01/17 00:26 - Constitutional Appears: No Acute Distress - Head Exam Head Exam: ATRAUMATIC, NORMAL INSPECTION, NORMOCEPHALIC - Eye Exam Eye Exam: EOMI, Normal appearance - ENT Exam ENT Exam: Mucous Membranes Moist - Neck Exam Neck Exam: Full ROM, Normal Inspection - Respiratory Exam Respiratory Exam: Rhonchi, NORMAL BREATHING PATTERN - Cardiovascular Exam Cardiovascular Exam: +S1, +S2 - GI/Abdominal Exam GI & Abdominal Exam: Soft, Normal Bowel Sounds. absent: Tenderness - Extremities Exam Extremities Exam: Full ROM Additional comments: Left lower extremity wrapped in shira bandage. - Back Exam Back Exam: NORMAL INSPECTION - Neurological Exam Neurological Exam: Alert, Awake (Oriented x 2) - Psychiatric Exam Psychiatric exam: Normal Affect, Normal Mood - Skin Skin Exam: Intact, Normal Color, Warm Assessment and Plan - Assessment and Plan (Free Text) Assessment: Patient is a 41 year old female with a history of DM of twenty years as well as hypertension not controlled with medication found to have inferior NC s/p foot reconstruction surgery. Plan: 1. STEMI - IABP removed - BNP Trend: 05/02 11,000. 05/03 38846. 05/04 76252. 05/05 59975. 05/06 09550 - BP and HR stable - cont DAPT, BB, statins - Added Losartan 50 qD and Isosorbide Dinitrate 20 mg TID -Will Transfer to [place] for [facility]; transfer set for 8:00 a.m., procedure set for 1:00 p.m. 2. 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 This is supported by reference: Jose BERTRAND, Laura K, Devendra M, et al. Long-term safety of cardiac magnetic resonance imaging performed in the first few days after bare-metal stent implantation. J Magn Reson Imaging. 2006; 24: 1056-61. -MRI brain reveals subacute large left TECHNICAL PRODUCT MANAGER territory infarction involving occipital lobe. Mild gyral edema without evidence of mass effect of midline shift. Also reveals multifocal subacute infarctions in the right cerebellar hemisphere. -MRA neck reveals normal MR angiography of the neck -MRA head reveals normal MR angiography of the brain
[2017-05-06 10:15] VITALS: BP 167/94; PULSE 89; RESP 17
--- NOTE | 2017-05-06 17:28 | CP.PCM.PN ---
Subjective - Date & Time of Evaluation Date of Evaluation: 05/06/17 Time of Evaluation: 09:00 - Subjective Subjective: improving slowly iv rx in progress awaiting transfer to [facility] Objective - Vital Signs/Intake and Output Vital Signs (last 24 hours): Temp Pulse Resp BP Pulse Ox 98.2 F 89 17 167/94 H 100 05/06/17 08:00 05/06/17 10:00 05/06/17 10:00 05/06/17 09:49 05/06/17 05:21 Intake and Output: 05/06/17 05/06/17 06:59 18:59 Intake Total 100 0 Output Total 600 Balance -500 0 - Medications Medications: Current Medications Aspirin (Aspirin) 325 mg PO DAILY [facility] Last Admin: 05/05/17 09:34 Dose: 325 mg Clopidogrel Bisulfate (Plavix) 75 mg PO DAILY [facility] Last Admin: 05/05/17 09:34 Dose: 75 mg Famotidine (Pepcid) 20 mg PO BID [facility] Last Admin: 05/05/17 17:22 Dose: 20 mg Heparin Sodium (Porcine) (Heparin) 5,000 units SC Q8 [facility] Last Admin: 05/06/17 06:11 Dose: 5,000 units Azithromycin 500 mg/ Sodium (Chloride) 250 mls @ 250 mls/hr IVPB Q12 [facility] Last Admin: 05/05/17 23:00 Dose: 250 mls/hr Insulin Human Regular (Novolin R) 0 unit SC ACHS [facility] PRN Reason: Protocol Last Admin: 05/06/17 07:47 Dose: Not Given Isosorbide Dinitrate (Isordil) 20 mg PO TID [facility] Last Admin: 05/05/17 17:22 Dose: 20 mg Losartan Potassium (Cozaar) 50 mg PO DAILY [facility] Last Admin: 05/05/17 10:56 Dose: 50 mg Metoprolol Tartrate (Lopressor) 100 mg PO BID [facility] Last Admin: 05/06/17 09:52 Dose: 100 mg Rosuvastatin Calcium (Crestor) 20 mg PO HS [facility] Last Admin: 05/05/17 23:00 Dose: 20 mg Saccharomyces Boulardii (Florastor) 250 mg PO BID [facility] Last Admin: 05/05/17 20:00 Dose: 250 mg - Labs Labs: 05/06/17 06:21 05/06/17 06:21 PT 13.5 SECONDS (9.7-12.2) H 04/30/17 22:43 INR 1.2 04/30/17 22:43 APTT 71 SECONDS (21-34) H D 05/01/17 00:26 - Constitutional Appears: Non-toxic, Chronically Ill - Head Exam Head Exam: NORMOCEPHALIC - Eye Exam Eye Exam: PERRL - ENT Exam ENT Exam: Mucous Membranes Dry - Neck Exam Neck Exam: absent: Lymphadenopathy - Respiratory Exam Respiratory Exam: Decreased Breath Sounds - Cardiovascular Exam Cardiovascular Exam: REGULAR RHYTHM Assessment and Plan (1) Acute ST elevation myocardial infarction (STEMI) Status: Acute (2) Cardiogenic postoperative shock Status: Acute (3) Sepsis Status: Acute (4) Charcot's joint of foot Status: Chronic (5) Diabetes Status: Chronic (6) HLD (hyperlipidemia) Status: Chronic (7) Arthritis of left ankle Status: Acute (8) DM2 (diabetes mellitus, type 2) Status: Acute (9) HTN (hypertension) Status: Chronic
== END 2017-05-06 11:25 | disposition short-term general hospital (02) | DRG 549 ==
LOC: C.9I 18:51
PROVIDERS: ADMIT Family Medicine; ATTEND Family Medicine
PROC: 027034Z Dilation of Coronary Artery, One Artery with Drug-eluting Intraluminal Device, Percutaneous Approach (ICD-10-PCS; principal; 2017-04-30)
PROC: 5A02210 Assistance with Cardiac Output using Balloon Pump, Continuous (ICD-10-PCS; 2017-04-30)
PROC: 4A023N8 Measurement of Cardiac Sampling and Pressure, Bilateral, Percutaneous Approach (ICD-10-PCS; 2017-04-30)
PROC: B2161ZZ Fluoroscopy of Right and Left Heart using Low Osmolar Contrast (ICD-10-PCS; 2017-04-30)
PROC: B2111ZZ Fluoroscopy of Multiple Coronary Arteries using Low Osmolar Contrast (ICD-10-PCS; 2017-04-30)
PROC: 5A1945Z Respiratory Ventilation, 24-96 Consecutive Hours (ICD-10-PCS; 2017-04-30)
DX: I21.19 ST elevation (STEMI) myocardial infarction involving other coronary artery of inferior wall (principal); T81.11XA Postprocedural cardiogenic shock, initial encounter; I63.432 Cerebral infarction due to embolism of left posterior cerebral artery; A41.9 Sepsis, unspecified organism; E11.22 Type 2 diabetes mellitus with diabetic chronic kidney disease; E11.51 Type 2 diabetes mellitus with diabetic peripheral angiopathy without gangrene; R71.0 Precipitous drop in hematocrit; E11.610 Type 2 diabetes mellitus with diabetic neuropathic arthropathy; I65.29 Occlusion and stenosis of unspecified carotid artery; N18.9 Chronic kidney disease, unspecified; R09.02 Hypoxemia; G62.9 Polyneuropathy, unspecified; H53.461 Homonymous bilateral field defects, right side; E11.65 Type 2 diabetes mellitus with hyperglycemia; I25.10 Atherosclerotic heart disease of native coronary artery without angina pectoris; E78.00 Pure hypercholesterolemia, unspecified; H53.462 Homonymous bilateral field defects, left side; I12.9 Hypertensive chronic kidney disease with stage 1 through stage 4 chronic kidney disease, or unspecified chronic kidney disease; M19.072 Primary osteoarthritis, left ankle and foot; Z79.82 Long term (current) use of aspirin; Z79.899 Other long term (current) drug therapy; Z87.440 Personal history of urinary (tract) infections